=== PATIENT | female | born 1930 | race Two or more races ===

== ENCOUNTER 2017-11-13 16:04 | Inpatient (IN) | payer MEDICARE, MEDICAID ==
[~2017-11-13] VITALS: Ht 165.1 cm; Wt 49.1 kg
[~2017-11-13 16:04] MED LIST: ACYCLOVIR400 MG ORAL; ANIMAL SHAPES1 EAC4 PO; ARICEPT10 MG PO; COLACE100 MG PO; FERROUS SULFAT325 MG ORAL; MEGACE40 MG PO; MOM30 ML PO; NAMENDA10 MG PO; NITROGLYCERIN0.4 MG SL; SIMVASTATIN40 MG PO; TRAMADOL HCL50 MG ORAL; TRAMADOL HCL50 MG PO; TYLENOL 8 HOUR650 M1 PO; VITAMIN C500 M1 PO; ZINC PO; ZOSTRIX HP56.6 G1 TP
[2017-11-13] MEDS ORDERED: Ipratropium 0.02% Inh Soln 2.5ml UD HHN ONE (16:15)
[2017-11-13] MEDS ORDERED: Albuterol ud Inhalation HHN ONE (16:15)
[2017-11-13] MEDS ORDERED: NS 1000ml 1,600 ML IVLG ONE (16:45)
[2017-11-13] MEDS ORDERED: Vancomycin 1 GM in NS 275 ML IV ONE (16:45)
[2017-11-13] MEDS ORDERED: Acetaminophen 650 MG SUPP RECTAL ONE ×2 (16:45→16:49)
--- NOTE | 2017-11-13 16:47 | Emergency Room Report ---
History of Present Illness General Chief Complaint: Dyspnea/Respdistress Source: Medical Record Present Illness HPI 87yo F p/w cough and possible COPD exacerbation from SNF, was just at 2 outside hospitals for similar reasons in the past week Patient is nonverbal but has an apparent COPD and CAD history s/p CABG She was found to be febrile here but in no obvious distress. Allergies: Coded Allergies: No Known Allergies (Unverified , 09/24/12) Patient History Limited by: age, medical condition Past Medical History: see triage record, old chart reviewed Reviewed Nursing Documentation: PMH: Agreed; PSxH: Agreed Nursing Documentation-PMH Past Medical History: No History, Except For Hx Cardiac Problems: Yes - heart disease high cholesterol osteoarthritis Hx COPD: Yes Hx Cancer: No Hx Gastrointestinal Problems: No Hx Neurological Problems: Yes - dementia Hx Dementia: Yes Review of Systems All Other Systems: limited - demented, nonverbal Physical Exam Vital Signs Date Time Temp Pulse Resp B/P (MAP) Pulse Ox O2 Delivery O2 Flow Rate FiO2 11/13/17 16:05 99.1 104 20 134/70 94 Nasal Cannula 4.0 99.1 Sp02 EP Interpretation: reviewed, normal, abnormal - slightly hypoxic General Appearance: no apparent distress, alert, non-toxic Head: normocephalic Eyes: bilateral eye normal inspection, bilateral eye PERRL, bilateral eye EOMI ENT: normal ENT inspection, hearing grossly normal, normal pharynx, no angioedema, normal voice, moist mucus membranes Neck: normal inspection, full range of motion, supple, supple/symm/no masses Respiratory: chest non-tender, normal breath sounds, no accessory muscle use - slightly tachypnea, chest symmetrical, palpation of chest normal Cardiovascular #1: normal peripheral pulses, regular rate, rhythm, tachycardia Cardiovascular #2: 2+ radial (R), 2+ radial (L) Gastrointestinal: normal inspection, non tender, soft, no mass, no guarding, no rebound Rectal: deferred Genitourinary: normal inspection, no CVA tenderness Musculoskeletal: back normal, gait/station normal, normal range of motion, non- tender, no calf tenderness Neurologic: alert, responsive, contact center team lead III-XII nml as tested, motor strength/tone normal, sensory intact, speech normal Psychiatric: mood/affect normal - flat affect Skin: normal color, warm/dry Lymphatic: no adenopathy Medical Decision Making Diagnostic Impression: Primary Impression: Sepsis ER Course Patient found to have a fever, treated with the nebulizer treatment for suspected COPD, then treated with 30 mL per/kg fluids, blood cultures, lactic acid, broad-spectrum antibiotics EKG Diagnostic Results EKG Time: 16:32 EP Interpretation: LBBB, no sgarbossa criteria met Rate: tachycardiac Rhythm: NSR ST Segments: no acute changes ASA given to the pt in ED: No Rhythm Strip Diag. Results Rhythm Strip Time: 16:45 EP Interpretation: yes Rate: 105 Rhythm: NSR, no PVC's, no ectopy Chest X-Ray Diagnostic Results Chest X-Ray Diagnostic Results : Chest X-Ray Ordered: Yes # of Views/Limited/Complete: 1 View Indication: Other EP Interpretation: Yes PA Xray: Interpretation reviewed Interpretation: no acute cardiopulmonary disease, other - elevated R hemidiaphragm, possible consolidation of RML Impression: Other Electronically Signed by: Ortega Arias MD Reevaluation Time: 17:08 Last Vital Signs Date Time Temp Pulse Resp B/P (MAP) Pulse Ox O2 Delivery O2 Flow Rate FiO2 11/13/17 16:36 111 25 Nasal Cannula 4.0 11/13/17 16:05 99.1 134/70 94 99.1 Status: improved Reevaluation Impression repeat focused sepsis evaluation performed, exam reveals patient to be stable Disposition: ADMITTED INPATIENT Admit Decision Time: 17:14 Condition: Stable Signed Out To: Admitted to ORTEGA Stubbs M.D November 13, 2017 16:47
[2017-11-13] MEDS ORDERED: Zosyn 3.375gm inj ONE (16:49)
[2017-11-13 16:51] LABS: BASOPHILS % (AUTO) 0.2 % (0.0-2.0); HEMATOCRIT 43.8 % (37.0-47.0); HEMOGLOBIN 14.7 G/DL (12.0-16.0); LYMPHOCYTES % (AUTO) 8.4 % (20.0-45.0); MEAN CORPUSCULAR VOLUME 89 FL (80-99); MONOCYTES % (AUTO) 5.5 % (1.0-10.0); NEUTROPHILS % (AUTO) 85.9 % (45.0-75.0); PLATELET COUNT 116 K/UL (150-450); RED BLOOD COUNT 4.93 M/UL (4.20-5.40); RED CELL DISTRIBUTION WIDTH 12.1 % (11.6-14.8); WHITE BLOOD COUNT 15.1 K/UL (4.8-10.8)
[2017-11-13 17:04] LABS: ANION GAP 9 mmol/L (5-15); BLOOD UREA NITROGEN 14 mg/dL (7-18); CALCIUM 9.3 MG/DL (8.5-10.1); CARBON DIOXIDE 27 MMOL/L (21-32); CHLORIDE 104 MMOL/L (98-107); CREATININE 0.9 MG/DL (0.55-1.30); POTASSIUM 3.4 MMOL/L (3.5-5.1); SODIUM 140 MMOL/L (136-145)
[2017-11-13 17:21] LABS: ALANINE AMINOTRANSFERASE 9 U/L (12-78); ALBUMIN 2.9 G/DL (3.4-5.0); ALBUMIN/GLOBULIN RATIO 0.6 (1.0-2.7); ALKALINE PHOSPHATASE 86 U/L (46-116); ASPARTATE AMINO TRANSFERASE 23 U/L (15-37); BILIRUBIN,TOTAL 0.9 MG/DL (0.2-1.0)
[2017-11-13 17:29] LABS: APPEARANCE,URINE CLEAR; BILIRUBIN, URINE NEGATIVE (NEGATIVE); GLUCOSE, URINE (UA) NEGATIVE (NEGATIVE); KETONES,URINE 1+ (NEGATIVE); LEUKOCYTE ESTERASE ,URINE 1+ (NEGATIVE); NITRITE,URINE NEGATIVE (NEGATIVE); PH,URINE 6 (4.5-8.0); PROTEIN,URINE 3+ (NEGATIVE); UROBILINOGEN,URINE 4 MG/DL (0.0-1.0)
[2017-11-13 17:32] LABS: COLOR,URINE AMBER
--- NOTE | 2017-11-13 17:37 | Diagnostic Imaging Report ---
Indication: Shortness of breath Technique: XRAY Chest 1v Comparison: 09/24/2012 Findings: Patient again noted to be status post median sternotomy and CABG. There is been interval removal of some sternal wires. Heart size grossly stable. There is slight fullness of the upper mediastinum which may be related to postsurgical change however the possibility of mass or lymphadenopathy is not excluded. Recommend further evaluation with CT of the chest. There is patchy left basilar likely atelectasis. There is likely chronic abnormalities of the clavicles IMPRESSION: Fullness of the upper mediastinum. This may be related to the marked abnormalities of the manubrium and right clavicle seen on prior CT of the chest. This does however the more pronounced compared to the prior exam. The possibility of mass or other etiologies not entirely excluded. Recommend further evaluation with CT of the chest with contrast. Patchy likely left basilar atelectasis.
[2017-11-13 18:16] VITALS: BP 102/67
[2017-11-13] MEDS ORDERED: CEPHALEXIN500 MG ORAL (18:51)
[2017-11-13] MEDS ORDERED: Nitroglycerin Subl 0.4mg tab SL PRN (20:45)
[2017-11-13] MEDS ORDERED: Albuterol/Ipratropium 3ml neb HHN PRN (20:45)
[2017-11-13] MEDS ORDERED: LORazepam Inj 2mg/ml 1ml IV PRN (20:45)
[2017-11-13] MEDS ORDERED: Promethazine/Codeine 5ml UD ORAL PRN (20:45)
[2017-11-13] MEDS ORDERED: Ketorolac 30mg Inj IV PRN (20:45)
[2017-11-13] MEDS ORDERED: Theophylline ER 100mg ORAL SCH (21:30)
[2017-11-13] MEDS ORDERED: Heparin 5000 units/ml inj SUBQ SCH (21:45)
[2017-11-13] MEDS ORDERED: Piperacillin/Tazobactam 2.25 GM in D5W 55 ML IV SCH (22:00)
[2017-11-13] MEDS ORDERED: Piperacillin/Tazobactam 3.375 GM in D5W 55 ML IV SCH (22:00)
[2017-11-13] MEDS: Heparin 5000 units/ml inj SUBQ SCH (22:10)
[2017-11-13] MEDS: Theophylline ER 100mg ORAL SCH (22:20)
[2017-11-13] MEDS: Piperacillin/Tazobactam 3.375 GM in D5W 55 ML IVPB SCH (22:40)
[2017-11-14] VITALS: BP 106/54
[2017-11-14] MEDS: Solu-MEDROL 125mg Inj IV SCH ×5 (00:54→23:27)
[2017-11-14 04:00] VITALS: BP 130/56
[2017-11-14] MEDS: Piperacillin/Tazobactam 3.375 GM in D5W 55 ML IVPB SCH ×2 (06:10→14:01)
[2017-11-14 08:00] VITALS: BP 150/94
[2017-11-14] MEDS: Heparin 5000 units/ml inj SUBQ SCH ×2 (09:00→21:00)
[2017-11-14] MEDS: Donepezil 10mg tab ORAL SCH (09:25)
[2017-11-14] MEDS: Memantine 10mg tab ORAL SCH (09:25)
[2017-11-14] MEDS: Theophylline ER 100mg ORAL SCH ×2 (09:25→21:36)
[2017-11-14 12:00] VITALS: BP 119/62
--- NOTE | 2017-11-14 15:48 | Consultation ---
History of Present Illness General Date patient seen: November 14, 2017 Time patient seen: 15:42 Chief Complaint: Dyspnea/Respdistress Present Illness HPI 87 y/o F with hx of COPD, HLD, OA, Dementia, CAD s/p CABG presents to ED on 11/13 with respiratory distress and concern for COPD exacerbation. Of note recently admitted twice for COPD exacerbation. Febrile here to 101.9 and WBC 15. Allergies: Coded Allergies: No Known Allergies (Unverified , 09/24/12) Medication History Scheduled Acetaminophen (Tylenol 8 Hour), 650 MG PO DAILY, (Reported) Acyclovir* (Acyclovir*), 800 MG ORAL FIVE TIMES A DAY Ascorbic Acid* (Vitamin C*), 500 MG PO DAILY, (Reported) Cephalexin* (Keflex*), 500 MG ORAL EVERY 6 HOURS, (Reported) Docusate Sodium* (Colace*), 100 MG PO BID, (Reported) Donepezil Hcl* (Aricept*), 10 MG PO HS, (Reported) Ferrous Sulfate* (Ferrous Sulfate*), 325 MG ORAL DAILY, (Reported) Magnesium Hydroxide (Milk of Magnesia), 30 ML PO TID, (Reported) Megestrol Acetate (Megestrol Acetate), 400 MG PO DAILY, (Reported) Memantine Hcl* (Namenda*), 10 MG PO DAILY, (Reported) Multivitamin (Animal Shapes Vitamins), 1 EACH PO DAILY, (Reported) Nitroglycerin (Nitroglycerin), 0.4 MG SL needed, (Reported) Simvastatin (Zocor), 40 MG PO QHS, (Reported) Tramadol Hcl* (Ultram*), 50 MG PO Q6H, (Reported) Zinc Gluconate (Zinc), 220 MG PO DAILY, (Reported) Scheduled PRN Capsaicin (Zostrix Hp), 1 APPLIC TP BID PRN for For Pain Tramadol Hcl* (Ultram*), 50 MG ORAL Q6H PRN for For Pain Patient History Healthcare decision maker N Resuscitation status Full Code Advanced Directive on File No Patient History Narrative Pmhx: as above Shx: reviewed Fhx: non contributory Review of Systems ROS Narrative unable to obtain Physical Exam Physical Exam Narrative Sp02 EP Interpretation: reviewed, normal, abnormal - slightly hypoxic General Appearance: no apparent distress, alert, non-toxic Head: normocephalic Eyes: bilateral eye normal inspection, bilateral eye PERRL, bilateral eye EOMI ENT: normal ENT inspection, hearing grossly normal, normal pharynx, no angioedema, normal voice, moist mucus membranes Neck: normal inspection, full range of motion, supple, supple/symm/no masses Respiratory: chest non-tender, normal breath sounds, no accessory muscle use - slightly tachypnea, chest symmetrical, palpation of chest normal Cardiovascular #1: normal peripheral pulses, regular rate, rhythm, tachycardia Cardiovascular #2: 2+ radial (R), 2+ radial (L) Gastrointestinal: normal inspection, non tender, soft, no mass, no guarding, no rebound Rectal: deferred Genitourinary: normal inspection, no CVA tenderness Musculoskeletal: back normal, gait/station normal, normal range of motion, non- tender, no calf tenderness Neurologic: alert, responsive, composite engineer III-XII nml as tested, motor strength/tone normal, sensory intact, speech normal Psychiatric: mood/affect normal - flat affect Skin: normal color, warm/dry Lymphatic: no adenopathy Last 24 Hour Vital Signs Date Time Temp Pulse Resp B/P (MAP) Pulse Ox O2 Delivery O2 Flow Rate FiO2 11/14/17 12:00 70 11/14/17 12:00 98.1 74 16 119/62 94 Nasal Cannula 4.0 98.1 11/14/17 08:00 95 11/14/17 08:00 98.1 94 18 150/94 96 Nasal Cannula 4.0 98.1 11/14/17 04:20 87 11/14/17 04:00 97.7 86 20 130/56 95 Nasal Cannula 4.0 97.7 11/14/17 00:00 98.2 109 20 106/54 96 Nasal Cannula 4.0 98.2 11/13/17 23:40 101 11/13/17 19:14 99 11/13/17 18:50 99.5 105 19 103/101 95 Nasal Cannula 4.0 99.6 11/13/17 18:16 99.6 108 21 102/67 95 Nasal Cannula 4.0 99.6 11/13/17 17:20 99.9 11/13/17 16:50 101.9 11/13/17 16:36 111 25 Nasal Cannula 4.0 11/13/17 16:34 94 25 Nasal Cannula 4.0 11/13/17 16:34 94 25 96 Nasal Cannula 4.0 11/13/17 16:05 99.1 104 20 134/70 94 Nasal Cannula 4.0 99.1 Intake and Output 11/13/17 11/14/17 19:00 07:00 Intake Total 1655 ml Balance 1655 ml Intake Oral 0 ml IV Total 1655 ml Laboratory Tests Test 11/13/17 16:35 11/13/17 16:50 11/13/17 17:00 White Blood Count 15.1 K/UL (4.8-10.8) H Red Blood Count 4.93 M/UL (4.20-5.40) Hemoglobin 14.7 G/DL (12.0-16.0) Hematocrit 43.8 % (37.0-47.0) Mean Corpuscular Volume 89 FL (80-99) Mean Corpuscular Hemoglobin 29.9 PG (27.0-31.0) Mean Corpuscular Hemoglobin Concent 33.7 G/DL (32.0-36.0) Red Cell Distribution Width 12.1 % (11.6-14.8) Platelet Count 116 K/UL (150-450) L Mean Platelet Volume 7.4 FL (6.5-10.1) Neutrophils (%) (Auto) 85.9 % (45.0-75.0) H Lymphocytes (%) (Auto) 8.4 % (20.0-45.0) L Monocytes (%) (Auto) 5.5 % (1.0-10.0) Eosinophils (%) (Auto) 0.0 % (0.0-3.0) Basophils (%) (Auto) 0.2 % (0.0-2.0) Sodium Level 140 MMOL/L (136-145) Potassium Level 3.4 MMOL/L (3.5-5.1) L Chloride Level 104 MMOL/L (98-107) Carbon Dioxide Level 27 MMOL/L (21-32) Anion Gap 9 mmol/L (5-15) Blood Urea Nitrogen 14 mg/dL (7-18) Creatinine 0.9 MG/DL (0.55-1.30) Estimat Glomerular Filtration Rate mL/min (>60) Glucose Level 153 MG/DL (74-106) H Lactic Acid Level 1.80 mmol/L (0.66-2.22) Calcium Level 9.3 MG/DL (8.5-10.1) Total Bilirubin 0.9 MG/DL (0.2-1.0) Aspartate Amino Transf (AST/SGOT) 23 U/L (15-37) Alanine Aminotransferase (ALT/SGPT) 9 U/L (12-78) L Alkaline Phosphatase 86 U/L (46-116) Troponin I 0.006 ng/mL (0.000-0.056) Pro-B-Type Natriuretic Peptide 2615 pg/mL (0-125) H Total Protein 7.8 G/DL (6.4-8.2) Albumin 2.9 G/DL (3.4-5.0) L Globulin 4.9 g/dL Albumin/Globulin Ratio 0.6 (1.0-2.7) L Arterial Blood pH 7.460 (7.350-7.450) Arterial Blood Partial Pressure CO2 36.6 mmHg (35.0-45.0) Arterial Blood Partial Pressure O2 71.3 mmHg (75.0-100.0) L Arterial Blood HCO3 25.8 mmol/L (22.0-26.0) Arterial Blood Oxygen Saturation 94.8 % (92.0-98.0) Arterial Blood Base Excess 2.3 Rivera Test Positive Urine Color Stephanie Urine Appearance Clear Urine pH 6 (4.5-8.0) Urine Specific [place] 1.020 (1.005-1.035) Urine Protein 3+ (NEGATIVE) H Urine Glucose (UA) Negative (NEGATIVE) Urine Ketones 1+ (NEGATIVE) H Urine Occult Blood 5+ (NEGATIVE) H Urine Nitrite Negative (NEGATIVE) Urine Bilirubin Negative (NEGATIVE) Urine Ictotest Positive Urine Urobilinogen 4 MG/DL (0.0-1.0) H Urine Leukocyte Esterase 1+ (NEGATIVE) H Urine RBC 30-40 /HPF (0 - 2) H Urine WBC 2-4 /HPF (0 - 2) Urine Squamous Epithelial Cells Few /LPF (NONE/OCC) Urine Bacteria Few /HPF (NONE) Height (Feet): 5 Height (Inches): 2.00 Weight (Pounds): 114 Medications Current Medications Medications (Trade) Dose Ordered Sig/Sheila Route PRN Reason Start Time Stop Time Status Last Admin Dose Admin Albuterol/ Ipratropium (Albuterol/ Ipratropium) 3 ml EVERY 4 HOURS PRN HHN dyspnea 11/13/17 20:45 11/18/17 20:44 Dextrose (Dextrose 50%) STAT PRN IV Hypoglycemia 11/13/17 20:45 12/13/17 20:44 Dextrose (Dextrose 50%) STAT PRN IV Hypoglycemia 11/13/17 22:00 12/13/17 21:59 Donepezil HCl (Aricept) 10 mg DAILY ORAL 11/14/17 09:00 12/14/17 08:59 11/14/17 09:25 Heparin Sodium (Porcine) (Heparin 5000 units/ml) 5,000 units EVERY 12 HOURS SUBQ 11/13/17 22:10 12/13/17 22:09 Ketorolac Tromethamine (Toradol 30mg) 30 mg EVERY 8 HOURS PRN IV moderate pain 4-6 11/13/17 20:45 11/18/17 20:44 Lorazepam (Ativan 2mg/ml 1ml) 0.5 mg Q4H PRN IV For Anxiety 11/13/17 20:45 11/20/17 20:44 Memantine (Namenda) 10 mg DAILY ORAL 11/14/17 09:00 12/14/17 08:59 11/14/17 09:25 Methylprednisolone Sodium Succinate (Solu-MEDROL) 60 mg EVERY 6 HOURS IV 11/14/17 00:00 12/14/17 00:00 11/14/17 12:20 Nitroglycerin (Ntg) 0.4 mg Q5M X 3 DOSES PRN SL Prn Chest Pain 11/13/17 20:45 12/13/17 20:44 Ondansetron HCl (Zofran) 4 mg Q6H PRN IVP Nausea & Vomiting 11/13/17 20:45 12/13/17 20:44 Piperacillin Sod/ Tazobactam Sod 3.375 gm/Dextrose 55 ml @ 12.5 mls/hr Q8H IVPB 11/13/17 22:00 11/20/17 21:59 11/14/17 14:01 Promethazine HCl/ Codeine (Phenergan with Codeine) 5 ml EVERY 6 HOURS PRN ORAL cough 11/13/17 20:45 12/13/17 20:44 Temazepam (Restoril) 15 mg HSPRN PRN ORAL Insomnia 11/13/17 20:45 11/20/17 20:44 Theophylline (Justin-Dur) 100 mg EVERY 12 HOURS ORAL 11/13/17 22:10 12/13/17 22:09 11/14/17 09:25 Assessment/Plan Assessment/Plan Abx: IV Zosyn 11/13- IV Vancomycin x1 11/13 Assessment: COPD exacerbation- r/o Flu -u/a WBC 2-4 -CXR: Fullness of the upper mediastinum. This may be related to the marked abnormalities of the manubrium and right clavicle seen on prior CT of the chest. This does however the more pronounced compared to the prior exam. The possibility of mass or other etiologies not entirely excluded. Recommend further evaluation with CT of the chest with contrast. Patchy likely left basilar atelectasis. Fever/leukocytosis -u/a wbc 2/4, nit neg, leuk +1 -Bcx p COPD HLD OA Dementia CAD s/p CABG Plan: -Switch Zosyn #2 to PO Levaquin -Add empiric Tamilfu pending test -f/u cx -Monitor CBC/BMP, temperatures -aspiration precautions Thank you for this consultation. Will continue to follow along with you. Discussed with PAULINE. Trini Mendoza M.D. November 14, 2017 15:48
[2017-11-14 16:00] VITALS: BP 134/71
--- NOTE | 2017-11-14 18:13 | Cardiology Report ---
APPROVED REPORT EKG Measurement Heart [id number] Sinus tachycardia Left bundle branch block Abnormal ECG
[2017-11-14 20:00] VITALS: BP 141/61
[2017-11-14] MEDS: Augmentin 875mg Tab ORAL SCH (21:36)
[2017-11-15] VITALS: BP 117/65
--- NOTE | 2017-11-15 | History and Physical Report ---
DATE OF ADMISSION: 11/13/2017 TIME: 3 p.m. CONSULTANTS: 1. Colin Chapa M.D. 2. Warren Lentz M.D. 3. Miya Munguia M.D. CHIEF COMPLAINT: Shortness of breath, sepsis, weakness and lethargy. BRIEF HISTORY: The patient is an 87-year-old female from [facility] presented with above-mentioned diagnosis, admitted to telemetry for further care. Currently lethargic in bed, , not responding to questions. PAST MEDICAL HISTORY: Shortness of breath, weakness and encephalopathy. PAST SURGICAL HISTORY: G-tube. MEDICATIONS: Aricept, Namenda, Solu-Medrol, heparin, theophylline, Zosyn, albuterol, Ketoralac, lorazepam, Zofran and temazepam. ALLERGIES: Denies. SOCIAL HISTORY: Unable to obtain secondary to the patient's condition. REVIEW OF SYSTEMS: Unavailable. PHYSICAL EXAMINATION: GENERAL: Lethargic in bed, not responding to questions. VITAL SIGNS: Temperature is 98 degrees, pulse 84, respiratory rate 16, and blood pressure 119/62. CARDIOVASCULAR: No murmur. LUNGS: Poor air exchange. ABDOMEN: Bowel sounds distant. EXTREMITIES: No cyanosis, clubbing, or edema. NEUROLOGIC: The patient moves all extremities, slightly weak. LABORATORY AND DIAGNOSTIC DATA: White count 15, otherwise CBC is normal. BMP shows potassium 3.4, glucose 153, otherwise BMP is normal. BNP is 2615. Urinalysis, 1+ leukocyte esterase. ASSESSMENT: 1. UTI. 2. Sepsis. 3. Tachycardia. 4. Weakness. 5. Lethargy. 6. Altered mental status. 7. Diabetes. PLAN: 1. Continue previous medications. 2. OT/PT. 3. Dietary evaluation. 4. CBC and BMP in the morning. 5. Antibiotics per Infectious Disease. 6. Blood pressure and blood sugar control. 7. Dr. Chaap, Dr. Lentz and Dr. Munguia to consult. Chase Long D.O. DR: KRISTY JOB#: [id number] CC:
[2017-11-15 04:00] VITALS: BP 114/62
[2017-11-15] MEDS: Solu-MEDROL 125mg Inj IV SCH ×2 (05:25→12:31)
[2017-11-15 06:13] LABS: HEMATOCRIT 35.9 % (37.0-47.0); MEAN CORPUSCULAR VOLUME 90 FL (80-99); PLATELET COUNT 125 K/UL (150-450); RED BLOOD COUNT 4.01 M/UL (4.20-5.40); RED CELL DISTRIBUTION WIDTH 11.9 % (11.6-14.8); WHITE BLOOD COUNT 12.5 K/UL (4.8-10.8)
[2017-11-15 06:22] LABS: ANION GAP 9 mmol/L (5-15); BLOOD UREA NITROGEN 23 mg/dL (7-18); CALCIUM 9.1 MG/DL (8.5-10.1); CARBON DIOXIDE 27 MMOL/L (21-32); CHLORIDE 108 MMOL/L (98-107); CREATININE 0.9 MG/DL (0.55-1.30); POTASSIUM 2.8 MMOL/L (3.5-5.1); SODIUM 144 MMOL/L (136-145)
[2017-11-15 08:00] VITALS: BP 158/78
[2017-11-15] MEDS: Augmentin 875mg Tab ORAL SCH (08:25)
[2017-11-15] MEDS: Donepezil 10mg tab ORAL SCH (08:26)
[2017-11-15] MEDS: Memantine 10mg tab ORAL SCH (08:26)
[2017-11-15] MEDS: Heparin 5000 units/ml inj SUBQ SCH (08:28)
[2017-11-15] MEDS: Theophylline ER 100mg ORAL SCH (08:35)
--- NOTE | 2017-11-15 11:37 | Consultation ---
History of Present Illness General Date patient seen: November 14, 2017 Chief Complaint: Dyspnea/Respdistress Reason for Consultation: dyspnea Present Illness HPI 87 year old female with hx of dementia, COPD, s/p CABGnursing home resident, just recently discharged from another hospital brought in for evaluation of acute dyspnea and fever. Patient is nonverbal and entire history is taken from the chart. Allergies: Coded Allergies: No Known Allergies (Unverified , 09/24/12) Medication History Scheduled Acetaminophen (Tylenol 8 Hour), 650 MG PO DAILY, (Reported) Acyclovir* (Acyclovir*), 800 MG ORAL FIVE TIMES A DAY Ascorbic Acid* (Vitamin C*), 500 MG PO DAILY, (Reported) Cephalexin* (Keflex*), 500 MG ORAL EVERY 6 HOURS, (Reported) Docusate Sodium* (Colace*), 100 MG PO BID, (Reported) Donepezil Hcl* (Aricept*), 10 MG PO HS, (Reported) Ferrous Sulfate* (Ferrous Sulfate*), 325 MG ORAL DAILY, (Reported) Magnesium Hydroxide (Milk of Magnesia), 30 ML PO TID, (Reported) Megestrol Acetate (Megestrol Acetate), 400 MG PO DAILY, (Reported) Memantine Hcl* (Namenda*), 10 MG PO DAILY, (Reported) Multivitamin (Animal Shapes Vitamins), 1 EACH PO DAILY, (Reported) Nitroglycerin (Nitroglycerin), 0.4 MG SL needed, (Reported) Simvastatin (Zocor), 40 MG PO QHS, (Reported) Tramadol Hcl* (Ultram*), 50 MG PO Q6H, (Reported) Zinc Gluconate (Zinc), 220 MG PO DAILY, (Reported) Scheduled PRN Capsaicin (Zostrix Hp), 1 APPLIC TP BID PRN for For Pain Tramadol Hcl* (Ultram*), 50 MG ORAL Q6H PRN for For Pain Patient History Healthcare decision maker N Resuscitation status Full Code Advanced Directive on File No Past Medical/Surgical History Past Medical/Surgical History: (1) Dementia (2) CAD (coronary artery disease) Review of Systems All Other Systems: negative except mentioned in HPI Physical Exam General Appearance: cachetic Lines, tubes and drains: peripheral HEENT: normocephalic, atraumatic Neck: non-tender, normal alignment Respiratory/Chest: chest wall non-tender, lungs clear Breasts: no masses Cardiovascular/Chest: normal peripheral pulses Abdomen: normal bowel sounds, non tender Genitourinary/Rectal: normal genital exam Extremities: normal range of motion Skin Exam: normal pigmentation Neurologic: palletizer II-XII grossly normal Last 24 Hour Vital Signs Date Time Temp Pulse Resp B/P (MAP) Pulse Ox O2 Delivery O2 Flow Rate FiO2 11/15/17 07:23 Nasal Cannula 4.0 36 11/15/17 07:23 95 Nasal Cannula 4.0 36 11/15/17 07:23 108 18 Nasal Cannula 4.0 11/15/17 04:00 97.5 63 20 114/62 96 Nasal Cannula 3.0 97.5 11/15/17 04:00 63 11/15/17 00:00 89 11/15/17 00:00 98.5 92 19 117/65 96 Nasal Cannula 3.0 98.5 11/14/17 20:50 108 24 Nasal Cannula 4.0 11/14/17 20:30 Nasal Cannula 3.0 11/14/17 20:30 94 Nasal Cannula 3.0 11/14/17 20:00 98.2 97 22 141/61 94 Nasal Cannula 3.0 98.2 11/14/17 20:00 95 11/14/17 16:00 97.9 85 18 134/71 95 Nasal Cannula 4.0 97.9 11/14/17 16:00 86 11/14/17 12:00 70 11/14/17 12:00 98.1 74 16 119/62 94 Nasal Cannula 4.0 98.1 Laboratory Tests Test 11/15/17 05:30 White Blood Count 12.5 K/UL (4.8-10.8) H Red Blood Count 4.01 M/UL (4.20-5.40) L Hemoglobin 12.0 G/DL (12.0-16.0) Hematocrit 35.9 % (37.0-47.0) L Mean Corpuscular Volume 90 FL (80-99) Mean Corpuscular Hemoglobin 29.9 PG (27.0-31.0) Mean Corpuscular Hemoglobin Concent 33.3 G/DL (32.0-36.0) Red Cell Distribution Width 11.9 % (11.6-14.8) Platelet Count 125 K/UL (150-450) L Mean Platelet Volume 7.5 FL (6.5-10.1) Neutrophils (%) (Auto) % (45.0-75.0) Lymphocytes (%) (Auto) % (20.0-45.0) Monocytes (%) (Auto) % (1.0-10.0) Eosinophils (%) (Auto) % (0.0-3.0) Basophils (%) (Auto) % (0.0-2.0) Sodium Level 144 MMOL/L (136-145) Potassium Level 2.8 MMOL/L (3.5-5.1) L Chloride Level 108 MMOL/L (98-107) H Carbon Dioxide Level 27 MMOL/L (21-32) Anion Gap 9 mmol/L (5-15) Blood Urea Nitrogen 23 mg/dL (7-18) H Creatinine 0.9 MG/DL (0.55-1.30) Estimat Glomerular Filtration Rate mL/min (>60) Glucose Level 170 MG/DL (74-106) H Calcium Level 9.1 MG/DL (8.5-10.1) Microbiology Date/Time Source Procedure Growth Status 11/14/17 16:25 Sputum Induced Gram Stain Pending Resulted 11/14/17 16:25 Sputum Induced Sputum Culture - Preliminary Resulted 11/14/17 16:25 Nasopharynx Influenza Types A,B Antigen (JAMEY) - Final Complete Height (Feet): 5 Height (Inches): 2.00 Weight (Pounds): 114 Medications Current Medications Medications (Trade) Dose Ordered Sig/Sheila Route PRN Reason Start Time Stop Time Status Last Admin Dose Admin Albuterol/ Ipratropium (Albuterol/ Ipratropium) 3 ml EVERY 4 HOURS PRN HHN dyspnea 11/13/17 20:45 11/18/17 20:44 Amoxicillin/ Clavulanate Potassium (Augmentin) 875 mg EVERY 12 HOURS ORAL 11/14/17 21:00 11/21/17 20:59 11/15/17 08:25 Dextrose (Dextrose 50%) STAT PRN IV Hypoglycemia 11/13/17 20:45 12/13/17 20:44 Dextrose (Dextrose 50%) STAT PRN IV Hypoglycemia 11/13/17 22:00 12/13/17 21:59 Donepezil HCl (Aricept) 10 mg DAILY ORAL 11/14/17 09:00 12/14/17 08:59 11/15/17 08:26 Heparin Sodium (Porcine) (Heparin 5000 units/ml) 5,000 units EVERY 12 HOURS SUBQ 11/15/17 21:00 12/13/17 22:09 Ketorolac Tromethamine (Toradol 30mg) 30 mg EVERY 8 HOURS PRN IV moderate pain 4-6 11/13/17 20:45 11/18/17 20:44 Lorazepam (Ativan 2mg/ml 1ml) 0.5 mg Q4H PRN IV For Anxiety 11/13/17 20:45 11/20/17 20:44 Memantine (Namenda) 10 mg DAILY ORAL 11/14/17 09:00 12/14/17 08:59 11/15/17 08:26 Methylprednisolone Sodium Succinate (Solu-MEDROL) 60 mg EVERY 6 HOURS IV 11/14/17 00:00 12/14/17 00:00 11/15/17 05:25 Nitroglycerin (Ntg) 0.4 mg Q5M X 3 DOSES PRN SL Prn Chest Pain 11/13/17 20:45 12/13/17 20:44 Ondansetron HCl (Zofran) 4 mg Q6H PRN IVP Nausea & Vomiting 11/13/17 20:45 12/13/17 20:44 Potassium Chloride 40 meq/ Sodium Chloride 1,020 ml @ 50 mls/hr [id number] ONCE IV 11/15/17 12:00 11/16/17 08:23 Promethazine HCl/ Codeine (Phenergan with Codeine) 5 ml EVERY 6 HOURS PRN ORAL cough 11/13/17 20:45 12/13/17 20:44 Temazepam (Restoril) 15 mg HSPRN PRN ORAL Insomnia 11/13/17 20:45 11/20/17 20:44 Assessment/Plan Problem List: (1) Aspiration pneumonia ICD Codes: J69.0 - Pneumonitis due to inhalation of food and vomit SNOMED: 707961857 (2) Sepsis ICD Codes: A41.9 - Sepsis, unspecified organism SNOMED: 87011337 (3) Dementia ICD Codes: F03.90 - Unspecified dementia without behavioral disturbance SNOMED: 50005596 (4) CAD (coronary artery disease) ICD Codes: I25.10 - Atherosclerotic heart disease of [place] coronary artery without angina pectoris SNOMED: 91037069 Assessment/Plan respiratory treatment iv abx titrate fio2 to sat of 92% check cultures sputum induction swallow evaluation dvt prophylaxis check electrolytes Warren Lentz MD November 15, 2017 11:37
--- NOTE | 2017-11-15 11:50 | Pulmonology Progress Note ---
Assessment/Plan Problems: (1) Aspiration pneumonia (2) Sepsis (3) Dementia (4) CAD (coronary artery disease) Assessment/Plan respiratory treatment iv abx check cultures chest pt check electrolytes swallow evaluation pending Subjective ROS Limited/Unobtainable: No Constitutional: Reports: no symptoms HEENT: Repors: no symptoms Respiratory: Reports: no symptoms Allergies: Coded Allergies: No Known Allergies (Unverified , 09/24/12) Objective Last 24 Hour Vital Signs Date Time Temp Pulse Resp B/P (MAP) Pulse Ox O2 Delivery O2 Flow Rate FiO2 11/15/17 08:00 98.0 89 19 158/78 97 Nasal Cannula 3.0 98.0 11/15/17 08:00 77 11/15/17 07:23 Nasal Cannula 4.0 36 11/15/17 07:23 95 Nasal Cannula 4.0 36 11/15/17 07:23 108 18 Nasal Cannula 4.0 11/15/17 04:00 97.5 63 20 114/62 96 Nasal Cannula 3.0 97.5 11/15/17 04:00 63 11/15/17 00:00 89 11/15/17 00:00 98.5 92 19 117/65 96 Nasal Cannula 3.0 98.5 11/14/17 20:50 108 24 Nasal Cannula 4.0 11/14/17 20:30 Nasal Cannula 3.0 11/14/17 20:30 94 Nasal Cannula 3.0 11/14/17 20:00 98.2 97 22 141/61 94 Nasal Cannula 3.0 98.2 11/14/17 20:00 95 11/14/17 16:00 97.9 85 18 134/71 95 Nasal Cannula 4.0 97.9 11/14/17 16:00 86 11/14/17 12:00 70 11/14/17 12:00 98.1 74 16 119/62 94 Nasal Cannula 4.0 98.1 General Appearance: WD/WN HEENT: normocephalic, atraumatic Respiratory/Chest: chest wall non-tender, lungs clear Breasts: no masses Cardiovascular: normal peripheral pulses Abdomen: normal bowel sounds, soft, non tender Genitourinary: normal external genitalia Extremities: no cyanosis Skin: no rash Lymphatic: no neck adenopathy Microbiology Date/Time Source Procedure Growth Status 11/13/17 16:35 Blood Blood Culture - Preliminary NO GROWTH AFTER 24 HOURS Resulted 11/13/17 16:30 Blood Blood Culture - Preliminary NO GROWTH AFTER 24 HOURS Resulted 11/14/17 16:25 Sputum Induced Gram Stain Pending Resulted 11/14/17 16:25 Sputum Induced Sputum Culture - Preliminary Resulted 11/14/17 16:25 Nasopharynx Influenza Types A,B Antigen (JAMEY) - Final Complete 11/13/17 17:00 Nasal Nares MRSA Culture - Final NO METHICILLIN RESISTANT STAPH AUREUS... Complete 11/13/17 17:00 Rectum VRE Culture - Final Enterococcus Faecium - Vre Complete Laboratory Tests 11/15/17 05:30: White Blood Count 12.5H, Red Blood Count 4.01L, Hemoglobin 12.0, Hematocrit 35.9L, Mean Corpuscular Volume 90, Mean Corpuscular Hemoglobin 29.9, Mean Corpuscular Hemoglobin Concent 33.3, Red Cell Distribution Width 11.9, Platelet Count 125L, Mean Platelet Volume 7.5, Neutrophils (%) (Auto) , Lymphocytes (%) ( Auto) , Monocytes (%) (Auto) , Eosinophils (%) (Auto) , Basophils (%) (Auto) , Sodium Level 144, Potassium Level 2.8L, Chloride Level 108H, Carbon Dioxide Level 27, Anion Gap 9, Blood Urea Nitrogen 23H, Creatinine 0.9, Estimat Glomerular Filtration Rate , Glucose Level 170H, Calcium Level 9.1 Current Medications Medications (Trade) Dose Ordered Sig/Sheila Route PRN Reason Start Time Stop Time Status Last Admin Dose Admin Albuterol/ Ipratropium (Albuterol/ Ipratropium) 3 ml EVERY 4 HOURS PRN HHN dyspnea 11/13/17 20:45 11/18/17 20:44 Amoxicillin/ Clavulanate Potassium (Augmentin) 875 mg EVERY 12 HOURS ORAL 11/14/17 21:00 11/21/17 20:59 11/15/17 08:25 Dextrose (Dextrose 50%) STAT PRN IV Hypoglycemia 11/13/17 20:45 12/13/17 20:44 Dextrose (Dextrose 50%) STAT PRN IV Hypoglycemia 11/13/17 22:00 12/13/17 21:59 Donepezil HCl (Aricept) 10 mg DAILY ORAL 11/14/17 09:00 12/14/17 08:59 11/15/17 08:26 Heparin Sodium (Porcine) (Heparin 5000 units/ml) 5,000 units EVERY 12 HOURS SUBQ 11/15/17 21:00 12/13/17 22:09 Ketorolac Tromethamine (Toradol 30mg) 30 mg EVERY 8 HOURS PRN IV moderate pain 4-6 11/13/17 20:45 11/18/17 20:44 Lorazepam (Ativan 2mg/ml 1ml) 0.5 mg Q4H PRN IV For Anxiety 11/13/17 20:45 11/20/17 20:44 Memantine (Namenda) 10 mg DAILY ORAL 11/14/17 09:00 12/14/17 08:59 11/15/17 08:26 Methylprednisolone Sodium Succinate (Solu-MEDROL) 60 mg EVERY 6 HOURS IV 11/14/17 00:00 12/14/17 00:00 11/15/17 05:25 Nitroglycerin (Ntg) 0.4 mg Q5M X 3 DOSES PRN SL Prn Chest Pain 11/13/17 20:45 12/13/17 20:44 Ondansetron HCl (Zofran) 4 mg Q6H PRN IVP Nausea & Vomiting 11/13/17 20:45 12/13/17 20:44 Potassium Chloride 40 meq/ Sodium Chloride 1,020 ml @ 50 mls/hr [id number] ONCE IV 11/15/17 12:00 11/16/17 08:23 Promethazine HCl/ Codeine (Phenergan with Codeine) 5 ml EVERY 6 HOURS PRN ORAL cough 11/13/17 20:45 12/13/17 20:44 Temazepam (Restoril) 15 mg HSPRN PRN ORAL Insomnia 11/13/17 20:45 11/20/17 20:44 Warren Lentz MD November 15, 2017 11:50
[2017-11-15 12:00] VITALS: BP 120/62
[2017-11-15] MEDS ORDERED: Potassium Chloride 40 MEQ in 1/2 NS 1000ml 1,000 ML IV ONE ×2 (12:00→19:00)
--- NOTE | 2017-11-15 13:52 | General Progress Note ---
Assessment/Plan Problem List: (1) SOB (shortness of breath) ICD Codes: R06.02 - Shortness of breath SNOMED: 199357246 (2) UTI (urinary tract infection) ICD Codes: N39.0 - Urinary tract infection, site not specified SNOMED: 24827226 (3) Weak ICD Codes: R53.1 - Weakness SNOMED: 68171369 (4) Diabetes ICD Codes: E11.9 - Type 2 diabetes mellitus without complications SNOMED: 89904228 (5) Sepsis ICD Codes: A41.9 - Sepsis, unspecified organism SNOMED: 03352533 (6) Shortness of breath ICD Codes: R06.02 - Shortness of breath SNOMED: 206177882 (7) Dementia ICD Codes: F03.90 - Unspecified dementia without behavioral disturbance SNOMED: 57215039 Status: unchanged Assessment/Plan 02 pulm tx abx ot pt diet cbc bmp am Subjective Constitutional: Reports: weakness Allergies: Coded Allergies: No Known Allergies (Unverified , 09/24/12) All Systems: reviewed and negative except above Subjective o2nc sleepy Objective Last 24 Hour Vital Signs Date Time Temp Pulse Resp B/P (MAP) Pulse Ox O2 Delivery O2 Flow Rate FiO2 11/15/17 12:00 73 11/15/17 12:00 97.7 79 19 120/62 95 Nasal Cannula 3.0 97.7 11/15/17 08:00 98.0 89 19 158/78 97 Nasal Cannula 3.0 98.0 11/15/17 08:00 77 11/15/17 07:23 Nasal Cannula 4.0 36 11/15/17 07:23 95 Nasal Cannula 4.0 36 11/15/17 07:23 108 18 Nasal Cannula 4.0 11/15/17 04:00 97.5 63 20 114/62 96 Nasal Cannula 3.0 97.5 11/15/17 04:00 63 11/15/17 00:00 89 11/15/17 00:00 98.5 92 19 117/65 96 Nasal Cannula 3.0 98.5 11/14/17 20:50 108 24 Nasal Cannula 4.0 11/14/17 20:30 Nasal Cannula 3.0 11/14/17 20:30 94 Nasal Cannula 3.0 11/14/17 20:00 98.2 97 22 141/61 94 Nasal Cannula 3.0 98.2 11/14/17 20:00 95 11/14/17 16:00 97.9 85 18 134/71 95 Nasal Cannula 4.0 97.9 11/14/17 16:00 86 Laboratory Tests 11/15/17 05:30: White Blood Count 12.5H, Red Blood Count 4.01L, Hemoglobin 12.0, Hematocrit 35.9L, Mean Corpuscular Volume 90, Mean Corpuscular Hemoglobin 29.9, Mean Corpuscular Hemoglobin Concent 33.3, Red Cell Distribution Width 11.9, Platelet Count 125L, Mean Platelet Volume 7.5, Neutrophils (%) (Auto) , Lymphocytes (%) ( Auto) , Monocytes (%) (Auto) , Eosinophils (%) (Auto) , Basophils (%) (Auto) , Sodium Level 144, Potassium Level 2.8L, Chloride Level 108H, Carbon Dioxide Level 27, Anion Gap 9, Blood Urea Nitrogen 23H, Creatinine 0.9, Estimat Glomerular Filtration Rate , Glucose Level 170H, Calcium Level 9.1 Height (Feet): 5 Height (Inches): 2.00 Weight (Pounds): 114 General Appearance: lethargic EENT: normal ENT inspection Neck: normal alignment Cardiovascular: normal peripheral pulses, normal rate, regular rhythm Respiratory/Chest: chest wall non-tender, lungs clear, normal breath sounds Abdomen: normal bowel sounds, non tender, soft Extremities: normal inspection Edema: no edema noted Arm (L), no edema noted Arm (R), no edema noted Leg (L), no edema noted Leg (R), no edema noted Pedal (L), no edema noted Pedal (R), no edema noted Generalized Neurologic: motor weakness Skin: normal pigmentation, warm/dry Chase Long DO November 15, 2017 13:52
--- NOTE | 2017-11-15 15:30 | Consultation ---
DATE OF CONSULTATION: 11/15/2017 HISTORY OF PRESENT ILLNESS: This is an 87-year-old female patient. She has been admitted to the hospital at [facility] secondary to shortness of breath, sepsis, weakness, and lethargy. She is [facility], but she has confusion, disorganized thought process, shortness of breath, weakness, encephalopathy, cognition has declined below baseline that is why her attending physician has requested daily psychiatric consultation. MEDICAL HISTORY: Shortness of breath, weakness and encephalopathy. ALLERGIES: No known drug allergies. SOCIAL HISTORY: The patient lives in [facility]. Financially supported by [email or web address] and Medicare. SUBSTANCE ABUSE HISTORY: Denies drug and alcohol use. FAMILY PSYCHIATRIC HISTORY: Denies. STRENGTHS: She is motivated to get better and has a place to live. WEAKNESSES: She is impulsive and has no support system. PSYCHIATRIC HISTORY: Major depression with psychotic features, rule out pseudodementia. MENTAL STATUS EXAMINATION: An 87-year-old female patient. Appearance is disheveled. Attitude irritable and agitated. Affect guarded and restricted. Intellect poor. Mood depressed, anxious. Motor activity, psychomotor agitation. Attention span is poor. Orientation x2. Poverty of speech. Insight and judgment is poor. DIAGNOSES: 1. Major depression with psychotic features, rule out pseudodementia. 2. Psychosocial stressors, financial. MEDICAL HISTORY: Please see Internal Medicine note. PLAN: Plan for this patient is to treat this patient with a psychotropic medication regimen consisting of Namenda 10 mg daily to reduce depression and anxiety and Aricept 10 mg daily as well. Provided 20 minutes of supportive psychotherapy. Encouraged to interact appropriately with staff. Chart reviewed and discussed with staff. I would like to thank, Dr. Chase Long, for this interesting consultation. Miya Munguia M.D. DR: CHERYL JOB#: [id number] CC:
[2017-11-15 16:00] VITALS: BP 140/85
--- NOTE | 2017-11-15 17:00 | Infectious Diseases Prog Note ---
Assessment/Plan Assessment/Plan Assessment: COPD exacerbation- ?PNA, no obvious infiltrates on CXR -CXR: Fullness of the upper mediastinum. This may be related to the marked abnormalities of the manubrium and right clavicle seen on prior CT of the chest. This does however the more pronounced compared to the prior exam. The possibility of mass or other etiologies not entirely excluded. Recommend further evaluation with CT of the chest with contrast. Patchy likely left basilar atelectasis. -influenza sc neg -sp cx p Fever/leukocytosis, improving -u/a wbc 2/4, nit neg, leuk +1 -Bcx NTD COPD HLD OA Dementia CAD s/p CABG Plan: -Continue PO Augumentin #2 (abx d#/) for COPD exacerbation -Levaquin not done due to prolong QTc and concomitant QTc prolonging med -11/14 SP Zosyn 2 -11/13 SP IV Vanco x1 -f/u cx -Monitor CBC/BMP, temperatures -aspiration precautions Thank you for this consultation. Will continue to follow along with you. Discussed with RN. Subjective Allergies: Coded Allergies: No Known Allergies (Unverified , 09/24/12) Subjective afebrile in ~48hrs leukocytosis improving Bcx NTD sp cx p Objective Vital Signs Last 24 Hour Vital Signs Date Time Temp Pulse Resp B/P (MAP) Pulse Ox O2 Delivery O2 Flow Rate FiO2 11/15/17 16:00 97.7 85 20 140/85 94 Nasal Cannula 3.0 97.7 11/15/17 12:00 73 11/15/17 12:00 97.7 79 19 120/62 95 Nasal Cannula 3.0 97.7 11/15/17 08:00 98.0 89 19 158/78 97 Nasal Cannula 3.0 98.0 11/15/17 08:00 77 11/15/17 07:23 Nasal Cannula 4.0 36 11/15/17 07:23 95 Nasal Cannula 4.0 36 11/15/17 07:23 108 18 Nasal Cannula 4.0 11/15/17 04:00 97.5 63 20 114/62 96 Nasal Cannula 3.0 97.5 11/15/17 04:00 63 11/15/17 00:00 89 11/15/17 00:00 98.5 92 19 117/65 96 Nasal Cannula 3.0 98.5 11/14/17 20:50 108 24 Nasal Cannula 4.0 11/14/17 20:30 Nasal Cannula 3.0 11/14/17 20:30 94 Nasal Cannula 3.0 11/14/17 20:00 98.2 97 22 141/61 94 Nasal Cannula 3.0 98.2 11/14/17 20:00 95 Height (Feet): 5 Height (Inches): 2.00 Weight (Pounds): 114 Objective General Appearance: no apparent distress, alert, non-toxic Head: normocephalic Eyes: bilateral eye normal inspection, bilateral eye PERRL, bilateral eye EOMI ENT: moist mucus membranes Neck: supple Respiratory: chest non-tender, normal breath sounds, no accessory muscle use - slightly tachypnea, chest symmetrical, palpation of chest normal Cardiovascular regular rate, rhythm Gastrointestinal: normal inspection, non tender, soft, no mass, no guarding, no rebound Genitourinary: normal inspection, no CVA tenderness Musculoskeletal: non-tender, no calf tenderness Skin: normal color, warm/dry Microbiology Date/Time Source Procedure Growth Status 11/13/17 16:35 Blood Blood Culture - Preliminary NO GROWTH AFTER 24 HOURS Resulted 11/13/17 16:30 Blood Blood Culture - Preliminary NO GROWTH AFTER 24 HOURS Resulted 11/14/17 16:25 Sputum Induced Gram Stain - Final Resulted 11/14/17 16:25 Sputum Induced Sputum Culture - Preliminary Resulted 11/14/17 16:25 Nasopharynx Influenza Types A,B Antigen (JAMEY) - Final Complete 11/13/17 17:00 Nasal Nares MRSA Culture - Final NO METHICILLIN RESISTANT STAPH AUREUS... Complete 11/13/17 17:00 Rectum VRE Culture - Final Enterococcus Faecium - Vre Complete Laboratory Tests Test 11/15/17 05:30 White Blood Count 12.5 K/UL (4.8-10.8) H Red Blood Count 4.01 M/UL (4.20-5.40) L Hemoglobin 12.0 G/DL (12.0-16.0) Hematocrit 35.9 % (37.0-47.0) L Mean Corpuscular Volume 90 FL (80-99) Mean Corpuscular Hemoglobin 29.9 PG (27.0-31.0) Mean Corpuscular Hemoglobin Concent 33.3 G/DL (32.0-36.0) Red Cell Distribution Width 11.9 % (11.6-14.8) Platelet Count 125 K/UL (150-450) L Mean Platelet Volume 7.5 FL (6.5-10.1) Neutrophils (%) (Auto) % (45.0-75.0) Lymphocytes (%) (Auto) % (20.0-45.0) Monocytes (%) (Auto) % (1.0-10.0) Eosinophils (%) (Auto) % (0.0-3.0) Basophils (%) (Auto) % (0.0-2.0) Sodium Level 144 MMOL/L (136-145) Potassium Level 2.8 MMOL/L (3.5-5.1) L Chloride Level 108 MMOL/L (98-107) H Carbon Dioxide Level 27 MMOL/L (21-32) Anion Gap 9 mmol/L (5-15) Blood Urea Nitrogen 23 mg/dL (7-18) H Creatinine 0.9 MG/DL (0.55-1.30) Estimat Glomerular Filtration Rate mL/min (>60) Glucose Level 170 MG/DL (74-106) H Calcium Level 9.1 MG/DL (8.5-10.1) Current Medications Medications (Trade) Dose Ordered Sig/Sheila Route PRN Reason Start Time Stop Time Status Last Admin Dose Admin Albuterol/ Ipratropium (Albuterol/ Ipratropium) 3 ml EVERY 4 HOURS PRN HHN dyspnea 11/13/17 20:45 11/18/17 20:44 Amoxicillin/ Clavulanate Potassium (Augmentin) 875 mg EVERY 12 HOURS ORAL 11/14/17 21:00 11/21/17 20:59 11/15/17 08:25 Dextrose (Dextrose 50%) STAT PRN IV Hypoglycemia 11/13/17 20:45 12/13/17 20:44 Dextrose (Dextrose 50%) STAT PRN IV Hypoglycemia 11/13/17 22:00 12/13/17 21:59 Donepezil HCl (Aricept) 10 mg DAILY ORAL 11/14/17 09:00 12/14/17 08:59 11/15/17 08:26 Heparin Sodium (Porcine) (Heparin 5000 units/ml) 5,000 units EVERY 12 HOURS SUBQ 11/15/17 21:00 12/13/17 22:09 Ketorolac Tromethamine (Toradol 30mg) 30 mg EVERY 8 HOURS PRN IV moderate pain 4-6 11/13/17 20:45 11/18/17 20:44 Lorazepam (Ativan 2mg/ml 1ml) 0.5 mg Q4H PRN IV For Anxiety 11/13/17 20:45 11/20/17 20:44 Memantine (Namenda) 10 mg DAILY ORAL 11/14/17 09:00 12/14/17 08:59 11/15/17 08:26 Methylprednisolone Sodium Succinate (Solu-MEDROL) 60 mg EVERY 6 HOURS IV 11/14/17 00:00 12/14/17 00:00 11/15/17 12:31 Nitroglycerin (Ntg) 0.4 mg Q5M X 3 DOSES PRN SL Prn Chest Pain 11/13/17 20:45 12/13/17 20:44 Ondansetron HCl (Zofran) 4 mg Q6H PRN IVP Nausea & Vomiting 11/13/17 20:45 12/13/17 20:44 Potassium Chloride 40 meq/ Sodium Chloride 1,020 ml @ 50 mls/hr [id number] ONCE IV 11/15/17 12:00 11/16/17 08:23 11/15/17 12:31 Promethazine HCl/ Codeine (Phenergan with Codeine) 5 ml EVERY 6 HOURS PRN ORAL cough 11/13/17 20:45 12/13/17 20:44 Temazepam (Restoril) 15 mg HSPRN PRN ORAL Insomnia 11/13/17 20:45 11/20/17 20:44 Trini Mendoza M.D. November 15, 2017 17:00
[2017-11-15] MEDS ORDERED: Solu-MEDROL 125mg Inj IV SCH (18:00)
[2017-11-15] MEDS ORDERED: Nitroglycerin Subl 0.4mg tab SL PRN (19:00)
[2017-11-15 19:22] VITALS: BP 138/60
[2017-11-15] MEDS ORDERED: Ketorolac 30mg Inj IV PRN (20:00)
[2017-11-15] MEDS ORDERED: LORazepam Inj 2mg/ml 1ml IV PRN (20:45)
[2017-11-15] MEDS ORDERED: Heparin 5000 units/ml inj SUBQ SCH ×2 (21:00)
[2017-11-15] MEDS ORDERED: Albuterol/Ipratropium 3ml neb HHN PRN (21:00)
[2017-11-15] MEDS ORDERED: Augmentin 875mg Tab ORAL SCH (21:00)
[2017-11-16] VITALS: BP 128/62
[2017-11-16] MEDS ORDERED: Promethazine/Codeine 5ml UD ORAL PRN
[2017-11-16] MEDS: Solu-MEDROL 125mg Inj IV SCH ×6 (00:43→21:34)
[2017-11-16 04:05] VITALS: BP_SYST 124; BP_SYST 137; BP_DIAS 53; BP_DIAS 73
[2017-11-16 07:24] LABS: HEMATOCRIT 35.1 % (37.0-47.0); HEMOGLOBIN 12.1 G/DL (12.0-16.0); MEAN CORPUSCULAR VOLUME 89 FL (80-99); PLATELET COUNT 148 K/UL (150-450); RED BLOOD COUNT 3.93 M/UL (4.20-5.40); RED CELL DISTRIBUTION WIDTH 11.9 % (11.6-14.8)
[2017-11-16 07:42] LABS: ANION GAP 9 mmol/L (5-15); BLOOD UREA NITROGEN 28 mg/dL (7-18); CALCIUM 8.5 MG/DL (8.5-10.1); CARBON DIOXIDE 28 MMOL/L (21-32); CHLORIDE 110 MMOL/L (98-107); CREATININE 0.8 MG/DL (0.55-1.30); POTASSIUM 3.2 MMOL/L (3.5-5.1); SODIUM 146 MMOL/L (136-145)
[2017-11-16 08:00] VITALS: BP 145/68
--- NOTE | 2017-11-16 08:27 | General Progress Note ---
Assessment/Plan Problem List: (1) SOB (shortness of breath) ICD Codes: R06.02 - Shortness of breath SNOMED: 109865590 (2) UTI (urinary tract infection) ICD Codes: N39.0 - Urinary tract infection, site not specified SNOMED: 62573814 (3) Weak ICD Codes: R53.1 - Weakness SNOMED: 59231208 (4) Diabetes ICD Codes: E11.9 - Type 2 diabetes mellitus without complications SNOMED: 66525799 (5) Sepsis ICD Codes: A41.9 - Sepsis, unspecified organism SNOMED: 22068334 (6) Shortness of breath ICD Codes: R06.02 - Shortness of breath SNOMED: 504484871 (7) Dementia ICD Codes: F03.90 - Unspecified dementia without behavioral disturbance SNOMED: 58369882 Status: unchanged Assessment/Plan 02 pulm tx abx ot pt diet cbc bmp am dc plan Subjective Constitutional: Reports: weakness Allergies: Coded Allergies: No Known Allergies (Unverified , 09/24/12) All Systems: reviewed and negative except above Subjective o2nc sleepy Objective Last 24 Hour Vital Signs Date Time Temp Pulse Resp B/P (MAP) Pulse Ox O2 Delivery O2 Flow Rate FiO2 11/16/17 08:04 96 18 Nasal Cannula 3.0 32 11/16/17 08:04 Nasal Cannula 3.0 32 11/16/17 08:04 96 Nasal Cannula 3.0 32 11/16/17 04:05 97.9 78 20 124/53 94 Nasal Cannula 3.0 32 97.9 11/16/17 04:00 Nasal Cannula 11/16/17 00:00 98.2 74 20 128/62 96 Room Air 98.2 74 11/16/17 00:00 Nasal Cannula 3.0 11/15/17 23:28 Nasal Cannula 3.0 32 11/15/17 23:28 94 18 Nasal Cannula 3.0 32 11/15/17 23:28 96 Nasal Cannula 4.0 36 11/15/17 20:00 Nasal Cannula 3.0 11/15/17 19:22 98.6 84 20 138/60 92 Nasal Cannula 98.6 84 11/15/17 16:00 97.7 85 20 140/85 94 Nasal Cannula 3.0 97.7 11/15/17 12:00 73 11/15/17 12:00 97.7 79 19 120/62 95 Nasal Cannula 3.0 97.7 Intake and Output 11/15/17 11/16/17 19:00 07:00 Intake Total 50 ml 600 ml Output Total 460 ml Balance 50 ml 140 ml IV Total 50 ml 600 ml Output Urine Total 460 ml Laboratory Tests 11/16/17 05:20: White Blood Count 6.0#, Red Blood Count 3.93L, Hemoglobin 12.1, Hematocrit 35.1L , Mean Corpuscular Volume 89, Mean Corpuscular Hemoglobin 30.7, Mean Corpuscular Hemoglobin Concent 34.4, Red Cell Distribution Width 11.9, Platelet Count 148L, Mean Platelet Volume 7.3, Neutrophils (%) (Auto) , Lymphocytes (%) ( Auto) , Monocytes (%) (Auto) , Eosinophils (%) (Auto) , Basophils (%) (Auto) , Neutrophils % (Manual) [Pending], Lymphocytes % (Manual) [Pending], Platelet Estimate [Pending], Platelet Morphology [Pending], Sodium Level 146H, Potassium Level 3.2L, Chloride Level 110H, Carbon Dioxide Level 28, Anion Gap 9, Blood Urea Nitrogen 28H, Creatinine 0.8, Estimat Glomerular Filtration Rate , Glucose Level 161H, Calcium Level 8.5 Height (Feet): 5 Height (Inches): 2.00 Weight (Pounds): 114 General Appearance: lethargic EENT: normal ENT inspection Neck: normal alignment Cardiovascular: normal peripheral pulses, normal rate, regular rhythm Respiratory/Chest: chest wall non-tender, decreased breath sounds Abdomen: normal bowel sounds, non tender, soft Extremities: normal inspection Edema: no edema noted Arm (L), no edema noted Arm (R), no edema noted Leg (L), no edema noted Leg (R), no edema noted Pedal (L), no edema noted Pedal (R), no edema noted Generalized Neurologic: motor weakness Skin: normal pigmentation, warm/dry Chase Long DO November 16, 2017 08:27
[2017-11-16] MEDS ORDERED: Augmentin 875mg Tab ORAL SCH (09:00)
[2017-11-16] MEDS ORDERED: Memantine 10mg tab ORAL SCH ×2 (09:00)
[2017-11-16] MEDS ORDERED: Heparin 5000 units/ml inj SUBQ SCH (09:00)
[2017-11-16] MEDS ORDERED: Donepezil 10mg tab ORAL SCH ×2 (09:00)
[2017-11-16] MEDS ORDERED: Potassium Chloride 40 MEQ in Sodium Chloride 500ML 550 ML IVPB ONE (10:00)
[2017-11-16 12:00] VITALS: BP 128/58
--- NOTE | 2017-11-16 12:28 | Infectious Diseases Prog Note ---
Assessment/Plan Assessment/Plan Assessment: COPD exacerbation- ?PNA, no obvious infiltrates on CXR -CXR: Fullness of the upper mediastinum. This may be related to the marked abnormalities of the manubrium and right clavicle seen on prior CT of the chest. This does however the more pronounced compared to the prior exam. The possibility of mass or other etiologies not entirely excluded. Recommend further evaluation with CT of the chest with contrast. Patchy likely left basilar atelectasis. -influenza sc neg -sp cx p Fever, SP leukocytosis, sp -u/a wbc 2/4, nit neg, leuk +1 -Bcx NTD COPD HLD OA Dementia CAD s/p CABG Plan: -Continue PO Augumentin # 3 (abx d# 4 /5) for COPD exacerbation -Levaquin not done due to prolong QTc and concomitant QTc prolonging med -11/14 SP Zosyn 2 -11/13 SP IV Vanco x1 -f/u cx -Monitor CBC/BMP, temperatures -aspiration precautions Subjective Allergies: Coded Allergies: No Known Allergies (Unverified , 09/24/12) Subjective comfortable Objective Vital Signs Last 24 Hour Vital Signs Date Time Temp Pulse Resp B/P (MAP) Pulse Ox O2 Delivery O2 Flow Rate FiO2 11/16/17 12:00 97.7 69 20 128/58 93 97.7 11/16/17 08:04 96 18 Nasal Cannula 3.0 32 11/16/17 08:04 Nasal Cannula 3.0 32 11/16/17 08:04 96 Nasal Cannula 3.0 32 11/16/17 08:00 97.3 73 20 145/68 94 97.3 11/16/17 04:05 97.9 78 20 124/53 94 Nasal Cannula 3.0 32 97.9 11/16/17 04:00 Nasal Cannula 11/16/17 00:00 98.2 74 20 128/62 96 Room Air 98.2 74 11/16/17 00:00 Nasal Cannula 3.0 11/15/17 23:28 Nasal Cannula 3.0 32 11/15/17 23:28 94 18 Nasal Cannula 3.0 32 11/15/17 23:28 96 Nasal Cannula 4.0 36 11/15/17 20:00 Nasal Cannula 3.0 11/15/17 19:22 98.6 84 20 138/60 92 Nasal Cannula 98.6 84 11/15/17 16:00 97.7 85 20 140/85 94 Nasal Cannula 3.0 97.7 Height (Feet): 5 Height (Inches): 2.00 Weight (Pounds): 114 HEENT: anicteric Respiratory/Chest: no respiratory distress Cardiovascular: regular rhythm Abdomen: soft, non tender Microbiology Date/Time Source Procedure Growth Status 11/13/17 16:35 Blood Blood Culture - Preliminary NO GROWTH AFTER 48 HOURS Resulted 11/13/17 16:30 Blood Blood Culture - Preliminary NO GROWTH AFTER 48 HOURS Resulted 11/14/17 16:25 Sputum Induced Gram Stain - Final Resulted 11/14/17 16:25 Sputum Induced Sputum Culture - Preliminary Resulted 11/14/17 16:25 Nasopharynx Influenza Types A,B Antigen (JAMEY) - Final Complete 11/13/17 17:00 Nasal Nares MRSA Culture - Final NO METHICILLIN RESISTANT STAPH AUREUS... Complete 11/13/17 17:00 Rectum VRE Culture - Final Enterococcus Faecium - Vre Complete Laboratory Tests Test 11/16/17 05:20 White Blood Count 6.0 K/UL (4.8-10.8) # Red Blood Count 3.93 M/UL (4.20-5.40) L Hemoglobin 12.1 G/DL (12.0-16.0) Hematocrit 35.1 % (37.0-47.0) L Mean Corpuscular Volume 89 FL (80-99) Mean Corpuscular Hemoglobin 30.7 PG (27.0-31.0) Mean Corpuscular Hemoglobin Concent 34.4 G/DL (32.0-36.0) Red Cell Distribution Width 11.9 % (11.6-14.8) Platelet Count 148 K/UL (150-450) L Mean Platelet Volume 7.3 FL (6.5-10.1) Neutrophils (%) (Auto) % (45.0-75.0) Lymphocytes (%) (Auto) % (20.0-45.0) Monocytes (%) (Auto) % (1.0-10.0) Eosinophils (%) (Auto) % (0.0-3.0) Basophils (%) (Auto) % (0.0-2.0) Differential Total Cells Counted 100 Neutrophils % (Manual) 84 % (45-75) H Lymphocytes % (Manual) 14 % (20-45) L Monocytes % (Manual) 2 % (1-10) Eosinophils % (Manual) 0 % (0-3) Basophils % (Manual) 0 % (0-2) Band Neutrophils 0 % (0-8) Platelet Estimate Decreased L Platelet Morphology Normal Anisocytosis 1+ Sodium Level 146 MMOL/L (136-145) H Potassium Level 3.2 MMOL/L (3.5-5.1) L Chloride Level 110 MMOL/L (98-107) H Carbon Dioxide Level 28 MMOL/L (21-32) Anion Gap 9 mmol/L (5-15) Blood Urea Nitrogen 28 mg/dL (7-18) H Creatinine 0.8 MG/DL (0.55-1.30) Estimat Glomerular Filtration Rate mL/min (>60) Glucose Level 161 MG/DL (74-106) H Calcium Level 8.5 MG/DL (8.5-10.1) Current Medications Medications (Trade) Dose Ordered Sig/Sheila Route PRN Reason Start Time Stop Time Status Last Admin Dose Admin Albuterol/ Ipratropium (Albuterol/ Ipratropium) 3 ml Q4H PRN HHN dyspnea 11/15/17 21:00 11/20/17 20:59 Amoxicillin/ Clavulanate Potassium (Augmentin) 875 mg EVERY 12 HOURS ORAL 11/16/17 09:00 11/21/17 20:59 11/16/17 08:29 Dextrose (Dextrose 50%) STAT PRN IV Hypoglycemia 11/15/17 20:00 12/13/17 19:59 Dextrose (Dextrose 50%) STAT PRN IV Hypoglycemia 11/15/17 20:45 12/13/17 20:44 Donepezil HCl (Aricept) 10 mg DAILY ORAL 11/16/17 09:00 12/16/17 08:59 11/16/17 08:29 Heparin Sodium (Porcine) (Heparin 5000 units/ml) 5,000 units EVERY 12 HOURS SUBQ 11/16/17 09:00 12/16/17 08:59 11/16/17 08:30 Ketorolac Tromethamine (Toradol 30mg) 30 mg Q8H PRN IV moderate pain 4-6 11/15/17 20:00 11/20/17 19:59 Lorazepam (Ativan 2mg/ml 1ml) 0.5 mg Q4H PRN IV For Anxiety 11/15/17 20:45 11/20/17 20:44 Memantine (Namenda) 10 mg DAILY ORAL 11/16/17 09:00 12/16/17 08:59 11/16/17 08:29 Methylprednisolone Sodium Succinate (Solu-MEDROL) 60 mg Q6H IV 11/16/17 08:15 12/16/17 08:14 11/16/17 08:28 Nitroglycerin (Ntg) 0.4 mg Q5M X 3 DOSES PRN SL Prn Chest Pain 11/15/17 19:00 12/13/17 20:44 Ondansetron HCl (Zofran) 4 mg Q6H PRN IVP Nausea & Vomiting 11/15/17 20:45 12/13/17 20:44 Potassium Chloride 40 meq/ Sodium Chloride 570 ml @ 142.5 mls/ hr ONCE ONCE IVPB 11/16/17 10:00 11/16/17 13:59 11/16/17 11:56 Promethazine HCl/ Codeine (Phenergan with Codeine) 5 ml Q6H PRN ORAL cough 11/16/17 00:00 12/16/17 00:00 Sodium Chloride 1,000 ml @ 50 mls/hr Q20H IV 11/15/17 21:00 12/15/17 20:59 Temazepam (Restoril) 15 mg HSPRN PRN ORAL Insomnia 11/15/17 20:45 11/20/17 20:44 Colin Chapa MD November 16, 2017 12:28
[2017-11-16 16:00] VITALS: BP 148/55
--- NOTE | 2017-11-16 17:45 | Progress Note ---
DATE: 11/16/2017 HISTORY OF PRESENT ILLNESS: This is a patient that is 87 years old with history of sepsis presenting with an altered mental status and confusion. That is why, her attending has requested daily psychiatric consultation. MENTAL STATUS EXAMINATION: This is an 87-year-old female. Appearance is disheveled. Attitude irritable and agitated. Affect guarded and restricted. Intellect poor. Mood depressed and anxious. Motor activity, psychomotor agitation. Attention span is poor. Orientation x2. Speech is pressured. Thought process, disorganized and illogical. Thought content, auditory hallucinations and paranoid delusions. Insight and judgment is poor. DIAGNOSIS: Major depression with psychotic features. PLAN: Treat her with Aricept 10 mg daily and Namenda 10 mg daily. 18 to 20 minutes of supportive psychotherapy provided. Chart reviewed. Discussed with staff. The patient is seen and assessed at bedside. Miya Munguia M.D. DR: CHERYL JOB#: [id number] CC:
[2017-11-16 20:00] VITALS: BP 152/76
[2017-11-16] MEDS: Heparin 5000 units/ml inj SUBQ SCH (21:34)
[2017-11-16] MEDS: Augmentin 875mg Tab ORAL SCH (21:35)
--- NOTE | 2017-11-16 21:45 | Consultation ---
DATE OF CONSULTATION: 11/15/2017 PSYCHOTHERAPY CONSULTATION PROGRESS NOTE TREATING ATTENDING PHYSICIAN: Chase Long D.O. HISTORY OF PRESENT ILLNESS: The patient is an 87-year-old female patient, brought into the hospital for sepsis. This patient has been very weak and lethargic and tired and has been confused. For these reasons, she is referred for psychotherapeutic services. The patient is from the long term [facility]. This clinician assessed the patient. The patient is very confused and disorganized in her thought process. She is unable to care for her basic needs. She has no logical plan for self care. There is no indication of auditory or visual hallucinations or suicidal or homicidal thoughts of ideation. However, the patient has been very confused. She has thoughts of irritability as well. However, she has been very tired, weak and lethargic. PAST MEDICAL HISTORY: Includes history of encephalopathy, shortness of breath, and weakness. ALLERGIES: The patient has no known drug allergies. SUBSTANCE ABUSE HISTORY: There is no indication of alcohol use, illicit substance use, and smoking cigarettes. PSYCHIATRIC HISTORY: The patient has a history of depression. SOCIAL HISTORY: The patient is . She is 87 years old, female patient. Financially sustained through [employer]. MENTAL STATUS EXAMINATION: The patient is alert and oriented to person and place. Mood is dysphoric. Affect blunted. Thought process disorganized. PLAN: The clinician assessed this patient. Assessed this patient's mental status. Provided the patient with reality orientation and provided the patient with supportive psychotherapy. Encouraging the patient to participate in treatment milieu. Continue behavioral management. This clinician has reviewed the patient's chart. Discussed the treatment with treatment team. Lucila Posadas PsyD. DR: Boaz JOB#: [id number] CC:
--- NOTE | 2017-11-16 22:11 | Pulmonology Progress Note ---
Assessment/Plan Problems: (1) Aspiration pneumonia (2) Sepsis (3) Dementia (4) CAD (coronary artery disease) Assessment/Plan improving respiratory treatment iv abx check cultures chest pt check electrolytes swallow evaluation Subjective ROS Limited/Unobtainable: No Allergies: Coded Allergies: No Known Allergies (Unverified , 09/24/12) Objective Last 24 Hour Vital Signs Date Time Temp Pulse Resp B/P (MAP) Pulse Ox O2 Delivery O2 Flow Rate FiO2 11/16/17 20:10 95 Nasal Cannula 3.0 32 11/16/17 20:10 Nasal Cannula 3.0 32 11/16/17 20:09 61 18 Nasal Cannula 3.0 32 11/16/17 20:00 98.2 75 20 152/76 92 98.2 11/16/17 16:00 Nasal Cannula 3.0 11/16/17 16:00 97.7 83 20 148/55 94 97.7 11/16/17 12:00 Nasal Cannula 3.0 11/16/17 12:00 97.7 69 20 128/58 93 97.7 11/16/17 08:04 96 18 Nasal Cannula 3.0 32 11/16/17 08:04 Nasal Cannula 3.0 32 11/16/17 08:04 96 Nasal Cannula 3.0 32 11/16/17 08:00 97.3 73 20 145/68 94 97.3 11/16/17 08:00 Nasal Cannula 3.0 11/16/17 04:05 97.9 78 20 124/53 94 Nasal Cannula 3.0 32 97.9 11/16/17 04:00 Nasal Cannula 11/16/17 00:00 98.2 74 20 128/62 96 Room Air 98.2 74 11/16/17 00:00 Nasal Cannula 3.0 11/15/17 23:28 Nasal Cannula 3.0 32 11/15/17 23:28 94 18 Nasal Cannula 3.0 32 11/15/17 23:28 96 Nasal Cannula 4.0 36 Intake and Output 11/15/17 11/16/17 19:00 07:00 Intake Total 50 ml 600 ml Output Total 460 ml Balance 50 ml 140 ml IV Total 50 ml 600 ml Output Urine Total 460 ml Objective General Appearance: WD/WN HEENT: normocephalic Respiratory/Chest: chest wall non-tender, lungs clear Cardiovascular: normal peripheral pulses, normal rate Abdomen: normal bowel sounds, soft, non tender Genitourinary: normal external genitalia Extremities: no clubbing Neurologic/Psychiatric: md pediatric allergist II-XII grossly normal Microbiology Date/Time Source Procedure Growth Status 11/14/17 16:25 Sputum Induced Gram Stain - Final Resulted 11/14/17 16:25 Sputum Induced Sputum Culture - Preliminary Resulted 11/14/17 16:25 Nasopharynx Influenza Types A,B Antigen (JAMEY) - Final Complete Laboratory Tests 11/16/17 05:20: White Blood Count 6.0#, Red Blood Count 3.93L, Hemoglobin 12.1, Hematocrit 35.1L , Mean Corpuscular Volume 89, Mean Corpuscular Hemoglobin 30.7, Mean Corpuscular Hemoglobin Concent 34.4, Red Cell Distribution Width 11.9, Platelet Count 148L, Mean Platelet Volume 7.3, Neutrophils (%) (Auto) , Lymphocytes (%) ( Auto) , Monocytes (%) (Auto) , Eosinophils (%) (Auto) , Basophils (%) (Auto) , Differential Total Cells Counted 100, Neutrophils % (Manual) 84H, Lymphocytes % (Manual) 14L, Monocytes % (Manual) 2, Eosinophils % (Manual) 0, Basophils % ( Manual) 0, Band Neutrophils 0, Platelet Estimate DecreasedL, Platelet Morphology Normal, Anisocytosis 1+, Sodium Level 146H, Potassium Level 3.2L, Chloride Level 110H, Carbon Dioxide Level 28, Anion Gap 9, Blood Urea Nitrogen 28H, Creatinine 0.8, Estimat Glomerular Filtration Rate , Glucose Level 161H, Calcium Level 8.5 Current Medications Medications (Trade) Dose Ordered Sig/Sheila Route PRN Reason Start Time Stop Time Status Last Admin Dose Admin Albuterol/ Ipratropium (Albuterol/ Ipratropium) 3 ml Q4H PRN HHN dyspnea 11/15/17 21:00 11/20/17 20:59 Amoxicillin/ Clavulanate Potassium (Augmentin) 875 mg EVERY 12 HOURS ORAL 11/16/17 21:00 11/21/17 22:00 11/16/17 21:35 Dextrose (Dextrose 50%) STAT PRN IV Hypoglycemia 11/15/17 20:00 12/13/17 19:59 Dextrose (Dextrose 50%) STAT PRN IV Hypoglycemia 11/15/17 20:45 12/13/17 20:44 Donepezil HCl (Aricept) 10 mg DAILY ORAL 11/17/17 09:00 12/16/17 08:59 Heparin Sodium (Porcine) (Heparin 5000 units/ml) 5,000 units EVERY 12 HOURS SUBQ 11/16/17 21:21 12/16/17 21:20 11/16/17 21:34 Ketorolac Tromethamine (Toradol 30mg) 30 mg Q8H PRN IV moderate pain 4-6 11/15/17 20:00 11/20/17 19:59 Lorazepam (Ativan 2mg/ml 1ml) 0.5 mg Q4H PRN IV For Anxiety 11/15/17 20:45 11/20/17 20:44 Memantine (Namenda) 10 mg DAILY ORAL 11/17/17 09:00 12/16/17 08:59 Methylprednisolone Sodium Succinate (Solu-MEDROL) 60 mg Q6H IV 11/16/17 14:30 12/16/17 14:29 11/16/17 21:34 Nitroglycerin (Ntg) 0.4 mg Q5M X 3 DOSES PRN SL Prn Chest Pain 11/15/17 19:00 12/13/17 20:44 Ondansetron HCl (Zofran) 4 mg Q6H PRN IVP Nausea & Vomiting 11/15/17 20:45 12/13/17 20:44 Promethazine HCl/ Codeine (Phenergan with Codeine) 5 ml Q6H PRN ORAL cough 11/16/17 00:00 12/16/17 00:00 Sodium Chloride 1,000 ml @ 50 mls/hr Q20H IV 11/15/17 21:00 12/15/17 20:59 11/16/17 17:29 Temazepam (Restoril) 15 mg HSPRN PRN ORAL Insomnia 11/15/17 20:45 11/20/17 20:44 Warren Lentz MD November 16, 2017 22:11
[2017-11-17] VITALS: BP_SYST 131; BP_SYST 139; BP_DIAS 107; BP_DIAS 69
[2017-11-17] MEDS: Solu-MEDROL 125mg Inj IV SCH ×4 (02:48→21:57)
[2017-11-17 04:00] VITALS: BP 123/70
[2017-11-17 08:00] VITALS: BP 146/66
[2017-11-17 08:02] LABS: BASOPHILS % (AUTO) 0.4 % (0.0-2.0); HEMATOCRIT 35.8 % (37.0-47.0); HEMOGLOBIN 12.1 G/DL (12.0-16.0); LYMPHOCYTES % (AUTO) 16.3 % (20.0-45.0); MEAN CORPUSCULAR VOLUME 90 FL (80-99); MONOCYTES % (AUTO) 4.3 % (1.0-10.0); NEUTROPHILS % (AUTO) 79.1 % (45.0-75.0); PLATELET COUNT 168 K/UL (150-450); RED BLOOD COUNT 3.99 M/UL (4.20-5.40); RED CELL DISTRIBUTION WIDTH 11.9 % (11.6-14.8); WHITE BLOOD COUNT 3.7 K/UL (4.8-10.8)
[2017-11-17 08:27] LABS: ANION GAP 10 mmol/L (5-15); BLOOD UREA NITROGEN 25 mg/dL (7-18); CALCIUM 8.3 MG/DL (8.5-10.1); CARBON DIOXIDE 26 MMOL/L (21-32); CHLORIDE 107 MMOL/L (98-107); CREATININE 0.7 MG/DL (0.55-1.30); POTASSIUM 3.6 MMOL/L (3.5-5.1); SODIUM 143 MMOL/L (136-145)
--- NOTE | 2017-11-17 08:42 | General Progress Note ---
Assessment/Plan Problem List: (1) SOB (shortness of breath) ICD Codes: R06.02 - Shortness of breath SNOMED: 571793309 (2) UTI (urinary tract infection) ICD Codes: N39.0 - Urinary tract infection, site not specified SNOMED: 92696710 (3) Weak ICD Codes: R53.1 - Weakness SNOMED: 49804545 (4) Diabetes ICD Codes: E11.9 - Type 2 diabetes mellitus without complications SNOMED: 42174775 (5) Sepsis ICD Codes: A41.9 - Sepsis, unspecified organism SNOMED: 59697152 (6) Shortness of breath ICD Codes: R06.02 - Shortness of breath SNOMED: 482176364 (7) Dementia ICD Codes: F03.90 - Unspecified dementia without behavioral disturbance SNOMED: 48227200 Status: unchanged Assessment/Plan 02 pulm tx abx ot pt diet cbc bmp am dc plan Subjective Constitutional: Reports: weakness Allergies: Coded Allergies: No Known Allergies (Unverified , 09/24/12) All Systems: reviewed and negative except above Subjective o2nc sleepy Objective Last 24 Hour Vital Signs Date Time Temp Pulse Resp B/P (MAP) Pulse Ox O2 Delivery O2 Flow Rate FiO2 11/17/17 08:00 97.3 65 20 146/66 95 97.3 11/17/17 07:41 59 18 Nasal Cannula 3.0 32 11/17/17 07:41 Nasal Cannula 3.0 32 11/17/17 07:41 96 Nasal Cannula 3.0 32 11/17/17 04:00 97.5 68 20 123/70 94 97.5 11/17/17 04:00 93 Nasal Cannula 2.0 11/17/17 00:00 97.9 66 18 131/69 93 97.9 11/17/17 00:00 Nasal Cannula 3.0 11/16/17 20:10 95 Nasal Cannula 3.0 32 11/16/17 20:10 Nasal Cannula 3.0 32 11/16/17 20:09 61 18 Nasal Cannula 3.0 32 11/16/17 20:00 Nasal Cannula 3.0 11/16/17 20:00 98.2 75 20 152/76 92 98.2 11/16/17 16:00 Nasal Cannula 3.0 11/16/17 16:00 97.7 83 20 148/55 94 97.7 11/16/17 12:00 Nasal Cannula 3.0 11/16/17 12:00 97.7 69 20 128/58 93 97.7 Intake and Output 11/16/17 11/17/17 19:00 07:00 Intake Total 820.0 ml 600 ml Output Total 300 ml 850 ml Balance 520.0 ml -250 ml IV Total 820.0 ml 600 ml Output Urine Total 300 ml 850 ml Laboratory Tests 11/17/17 04:50: White Blood Count 3.7L, Red Blood Count 3.99L, Hemoglobin 12.1, Hematocrit 35.8L , Mean Corpuscular Volume 90, Mean Corpuscular Hemoglobin 30.2, Mean Corpuscular Hemoglobin Concent 33.8, Red Cell Distribution Width 11.9, Platelet Count 168, Mean Platelet Volume 7.4, Neutrophils (%) (Auto) 79.1H, Lymphocytes ( %) (Auto) 16.3L, Monocytes (%) (Auto) 4.3, Eosinophils (%) (Auto) 0.0, Basophils (%) (Auto) 0.4, Sodium Level 143, Potassium Level 3.6, Chloride Level 107, Carbon Dioxide Level 26, Anion Gap 10, Blood Urea Nitrogen 25H, Creatinine 0.7, Estimat Glomerular Filtration Rate , Glucose Level 158H, Calcium Level 8.3L Height (Feet): 5 Height (Inches): 2.00 Weight (Pounds): 114 General Appearance: lethargic EENT: normal ENT inspection Neck: normal alignment Cardiovascular: normal peripheral pulses, normal rate, regular rhythm Respiratory/Chest: chest wall non-tender, decreased breath sounds Abdomen: normal bowel sounds, non tender, soft Extremities: normal inspection Edema: no edema noted Arm (L), no edema noted Arm (R), no edema noted Leg (L), no edema noted Leg (R), no edema noted Pedal (L), no edema noted Pedal (R), no edema noted Generalized Neurologic: motor weakness Skin: normal pigmentation, warm/dry Chase Long DO November 17, 2017 08:42
[2017-11-17] MEDS: Memantine 10mg tab ORAL SCH (08:43)
[2017-11-17] MEDS: Augmentin 875mg Tab ORAL SCH ×2 (08:43→20:29)
[2017-11-17] MEDS: Donepezil 10mg tab ORAL SCH (08:43)
[2017-11-17] MEDS: Heparin 5000 units/ml inj SUBQ SCH ×2 (08:44→20:30)
[2017-11-17 12:00] VITALS: BP 131/59
[2017-11-17 15:46] VITALS: BP 145/62
[2017-11-17 20:00] VITALS: BP 154/62
--- NOTE | 2017-11-17 20:15 | Progress Note ---
DATE: 11/17/2017 NOTE: "POOR AUDIO QUALITY" SUBJECTIVE: The patient is an 87-year-old female patient she is confused and disorganized. Mood labile. She has no logical plan for own self-care. She has got irritability, agitation, and . MENTAL STATUS EXAMINATION: The patient is an 87-year-old female. Appearance is disheveled. Attitude, irritable and agitated. Affect, guarded and restricted. Intellect poor. Mood depressed and anxious. Motor activity, psychomotor agitation. Attention span is poor. DIAGNOSIS: Major depression with psychotic features. PLAN: Treat her with Namenda 10 mg daily and Aricept 10 mg daily. Provide 18 to 20 minutes of supportive psychotherapy. Chart reviewed and discussed with staff. Miya Munguia M.D. DR: Fran JOB#: [id number] CC:
[2017-11-18] VITALS: BP 155/72
--- NOTE | 2017-11-18 00:45 | Progress Note ---
SUBJECTIVE: The patient is an 87-year-old female patient. ASSESSMENT: She has confusion, disorganized thought process, mood lability, . INCOMPLETE DICTATION Miya Munguia M.D. DR: Fran JOB#: [id number] CC:
[2017-11-18] MEDS: Solu-MEDROL 125mg Inj IV SCH ×4 (02:30→20:23)
[2017-11-18 04:00] VITALS: BP 150/73
--- NOTE | 2017-11-18 07:45 | Progress Note ---
DATE: 11/18/2017 SUBJECTIVE: The patient is an 87-year-old female with sepsis, history of altered mental status, confusion, disorganized thought process. Cognition has declined below baseline. That is why, her attending has requested daily psychiatric consultation. MENTAL STATUS EXAMINATION: This is an 87-year-old female. Confused and disorganized. Motor activity, psychomotor agitation. This patient's mood is depressed. Affect guarded and restricted. She denies auditory hallucinations or delusions. Thought process, disorganized. Denies suicidal or homicidal thoughts. DIAGNOSIS: Paranoid schizophrenia, acute exacerbation. PLAN: Continue titrating up psychotropic medications. An 18 to 20 minutes of supportive psychotherapy provided. Chart reviewed. Discussed with staff. Seen and assessed at bedside. Miya Munguia M.D. DR: HILL JOB#: [id number] CC:
[2017-11-18 08:00] VITALS: BP 142/56
[2017-11-18 08:16] LABS: BASOPHILS % (AUTO) 0.4 % (0.0-2.0); EOSINOPHILS % (AUTO) 0.1 % (0.0-3.0); HEMATOCRIT 39.8 % (37.0-47.0); HEMOGLOBIN 13.4 G/DL (12.0-16.0); MEAN CORPUSCULAR VOLUME 89 FL (80-99); NEUTROPHILS % (AUTO) 78.6 % (45.0-75.0); PLATELET COUNT 183 K/UL (150-450); RED BLOOD COUNT 4.47 M/UL (4.20-5.40); RED CELL DISTRIBUTION WIDTH 11.7 % (11.6-14.8)
[2017-11-18 08:18] LABS: ANION GAP 8 mmol/L (5-15); BLOOD UREA NITROGEN 22 mg/dL (7-18); CALCIUM 8.2 MG/DL (8.5-10.1); CARBON DIOXIDE 27 MMOL/L (21-32); CHLORIDE 107 MMOL/L (98-107); CREATININE 0.7 MG/DL (0.55-1.30); POTASSIUM 3.3 MMOL/L (3.5-5.1); SODIUM 142 MMOL/L (136-145)
[2017-11-18] MEDS: Memantine 10mg tab ORAL SCH (09:07)
[2017-11-18] MEDS: Augmentin 875mg Tab ORAL SCH (09:07)
[2017-11-18] MEDS: Donepezil 10mg tab ORAL SCH (09:08)
[2017-11-18] MEDS: Heparin 5000 units/ml inj SUBQ SCH ×2 (09:25→20:23)
--- NOTE | 2017-11-18 11:24 | Infectious Diseases Prog Note ---
Assessment/Plan Assessment/Plan Assessment: COPD exacerbation- ?PNA, no obvious infiltrates on CXR -CXR: Fullness of the upper mediastinum. This may be related to the marked abnormalities of the manubrium and right clavicle seen on prior CT of the chest. This does however the more pronounced compared to the prior exam. The possibility of mass or other etiologies not entirely excluded. Recommend further evaluation with CT of the chest with contrast. Patchy likely left basilar atelectasis. -influenza sc neg -sp cx : nl princess and Lexus Fever, SP leukocytosis, sp -u/a wbc 2/4, nit neg, leuk +1 -Bcx NTD COPD HLD OA Dementia CAD s/p CABG Plan: - DC PO Augumentin # 5 (abx d# 5 /) for COPD exacerbation -Levaquin not done due to prolong QTc and concomitant QTc prolonging med -11/14 SP Zosyn 2 -11/13 SP IV Vanco x1 - Bc -Monitor CBC/BMP, temperatures -aspiration precautions Subjective Constitutional: Denies: no symptoms, fever, chills, fatigue, anorexia, drenching sweats, other Allergies: Coded Allergies: No Known Allergies (Unverified , 09/24/12) Subjective comfortable Objective Vital Signs Last 24 Hour Vital Signs Date Time Temp Pulse Resp B/P (MAP) Pulse Ox O2 Delivery O2 Flow Rate FiO2 11/18/17 08:22 Nasal Cannula 2.0 11/18/17 08:00 97.5 63 19 142/56 96 97.5 11/18/17 07:57 Nasal Cannula 3.0 32 11/18/17 07:56 55 18 Nasal Cannula 3.0 32 11/18/17 07:56 95 Nasal Cannula 3.0 32 11/18/17 04:00 96.8 60 19 150/73 96 96.8 11/18/17 00:00 96.8 71 20 155/72 95 96.8 11/18/17 00:00 95 Nasal Cannula 2.0 11/17/17 20:59 63 18 Nasal Cannula 3.0 32 11/17/17 20:59 Nasal Cannula 3.0 32 11/17/17 20:59 96 Nasal Cannula 3.0 32 11/17/17 20:00 97.9 68 21 154/62 92 97.9 11/17/17 20:00 92 Nasal Cannula 2.0 11/17/17 16:00 Nasal Cannula 2.0 11/17/17 15:46 98.1 67 20 145/62 95 98.1 11/17/17 12:00 97.7 69 20 131/59 94 97.7 11/17/17 12:00 Nasal Cannula 2.0 Height (Feet): 5 Height (Inches): 2.00 Weight (Pounds): 114 HEENT: atraumatic Respiratory/Chest: normal breath sounds Cardiovascular: regular rhythm Abdomen: no organomegaly Laboratory Tests Test 11/18/17 05:15 White Blood Count 4.0 K/UL (4.8-10.8) L Red Blood Count 4.47 M/UL (4.20-5.40) Hemoglobin 13.4 G/DL (12.0-16.0) Hematocrit 39.8 % (37.0-47.0) Mean Corpuscular Volume 89 FL (80-99) Mean Corpuscular Hemoglobin 30.0 PG (27.0-31.0) Mean Corpuscular Hemoglobin Concent 33.6 G/DL (32.0-36.0) Red Cell Distribution Width 11.7 % (11.6-14.8) Platelet Count 183 K/UL (150-450) Mean Platelet Volume 6.7 FL (6.5-10.1) Neutrophils (%) (Auto) 78.6 % (45.0-75.0) H Lymphocytes (%) (Auto) 16.0 % (20.0-45.0) L Monocytes (%) (Auto) 5.0 % (1.0-10.0) Eosinophils (%) (Auto) 0.1 % (0.0-3.0) Basophils (%) (Auto) 0.4 % (0.0-2.0) Sodium Level 142 MMOL/L (136-145) Potassium Level 3.3 MMOL/L (3.5-5.1) L Chloride Level 107 MMOL/L (98-107) Carbon Dioxide Level 27 MMOL/L (21-32) Anion Gap 8 mmol/L (5-15) Blood Urea Nitrogen 22 mg/dL (7-18) H Creatinine 0.7 MG/DL (0.55-1.30) Estimat Glomerular Filtration Rate mL/min (>60) Glucose Level 164 MG/DL (74-106) H Calcium Level 8.2 MG/DL (8.5-10.1) L Current Medications Medications (Trade) Dose Ordered Sig/Sheila Route PRN Reason Start Time Stop Time Status Last Admin Dose Admin Albuterol/ Ipratropium (Albuterol/ Ipratropium) 3 ml Q4H PRN HHN dyspnea 11/15/17 21:00 11/20/17 20:59 Amoxicillin/ Clavulanate Potassium (Augmentin) 875 mg EVERY 12 HOURS ORAL 11/16/17 21:00 11/21/17 22:00 11/18/17 09:07 Dextrose (Dextrose 50%) STAT PRN IV Hypoglycemia 11/15/17 20:00 12/13/17 19:59 Dextrose (Dextrose 50%) STAT PRN IV Hypoglycemia 11/15/17 20:45 12/13/17 20:44 Donepezil HCl (Aricept) 10 mg DAILY ORAL 11/17/17 09:00 12/16/17 08:59 11/18/17 09:08 Heparin Sodium (Porcine) (Heparin 5000 units/ml) 5,000 units EVERY 12 HOURS SUBQ 11/16/17 21:21 12/16/17 21:20 11/18/17 09:25 Ketorolac Tromethamine (Toradol 30mg) 30 mg Q8H PRN IV moderate pain 4-6 11/15/17 20:00 11/20/17 19:59 Lorazepam (Ativan 2mg/ml 1ml) 0.5 mg Q4H PRN IV For Anxiety 11/15/17 20:45 11/20/17 20:44 Memantine (Namenda) 10 mg DAILY ORAL 11/17/17 09:00 12/16/17 08:59 11/18/17 09:07 Methylprednisolone Sodium Succinate (Solu-MEDROL) 60 mg Q6H IV 11/16/17 14:30 12/16/17 14:29 11/18/17 09:06 Nitroglycerin (Ntg) 0.4 mg Q5M X 3 DOSES PRN SL Prn Chest Pain 11/15/17 19:00 12/13/17 20:44 Ondansetron HCl (Zofran) 4 mg Q6H PRN IVP Nausea & Vomiting 11/15/17 20:45 12/13/17 20:44 Promethazine HCl/ Codeine (Phenergan with Codeine) 5 ml Q6H PRN ORAL cough 11/16/17 00:00 12/16/17 00:00 Sodium Chloride 1,000 ml @ 50 mls/hr Q20H IV 11/15/17 21:00 12/15/17 20:59 11/17/17 14:04 Temazepam (Restoril) 15 mg HSPRN PRN ORAL Insomnia 11/15/17 20:45 11/20/17 20:44 Colin Chapa MD November 18, 2017 11:24
[2017-11-18 12:00] VITALS: BP 105/63
--- NOTE | 2017-11-18 15:38 | Pulmonology Progress Note ---
Assessment/Plan Problems: (1) Aspiration pneumonia (2) Sepsis (3) Dementia (4) CAD (coronary artery disease) Assessment/Plan looks comfortable respiratory treatment iv abx titrate fio2 to sat of 92% check cultures chest pt check electrolytes will need a PEG Subjective ROS Limited/Unobtainable: No Constitutional: Reports: no symptoms HEENT: Repors: no symptoms Allergies: Coded Allergies: No Known Allergies (Unverified , 09/24/12) Objective Last 24 Hour Vital Signs Date Time Temp Pulse Resp B/P (MAP) Pulse Ox O2 Delivery O2 Flow Rate FiO2 11/18/17 12:00 97.2 70 18 105/63 95 Nasal Cannula 2.0 97.2 11/18/17 08:22 Nasal Cannula 2.0 11/18/17 08:00 97.5 63 19 142/56 96 97.5 11/18/17 07:57 Nasal Cannula 3.0 32 11/18/17 07:56 55 18 Nasal Cannula 3.0 32 11/18/17 07:56 95 Nasal Cannula 3.0 32 11/18/17 04:00 96.8 60 19 150/73 96 96.8 11/18/17 00:00 96.8 71 20 155/72 95 96.8 11/18/17 00:00 95 Nasal Cannula 2.0 11/17/17 20:59 63 18 Nasal Cannula 3.0 32 11/17/17 20:59 Nasal Cannula 3.0 32 11/17/17 20:59 96 Nasal Cannula 3.0 32 11/17/17 20:00 97.9 68 21 154/62 92 97.9 11/17/17 20:00 92 Nasal Cannula 2.0 11/17/17 16:00 Nasal Cannula 2.0 11/17/17 15:46 98.1 67 20 145/62 95 98.1 Intake and Output 11/17/17 11/18/17 19:00 07:00 Intake Total 550 ml 600 ml Output Total 400 ml 1350 ml Balance 150 ml -750 ml IV Total 550 ml 600 ml Output Urine Total 400 ml 1350 ml Objective General Appearance: WD/WN HEENT: normocephalic Respiratory/Chest: chest wall non-tender, lungs clear Cardiovascular: normal peripheral pulses, normal rate Abdomen: normal bowel sounds, soft, non tender Genitourinary: normal external genitalia Extremities: no clubbing 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 Laboratory Tests 11/18/17 05:15: White Blood Count 4.0L, Red Blood Count 4.47, Hemoglobin 13.4, Hematocrit 39.8, Mean Corpuscular Volume 89, Mean Corpuscular Hemoglobin 30.0, Mean Corpuscular Hemoglobin Concent 33.6, Red Cell Distribution Width 11.7, Platelet Count 183, Mean Platelet Volume 6.7, Neutrophils (%) (Auto) 78.6H, Lymphocytes (%) (Auto) 16.0L, Monocytes (%) (Auto) 5.0, Eosinophils (%) (Auto) 0.1, Basophils (%) (Auto ) 0.4, Sodium Level 142, Potassium Level 3.3L, Chloride Level 107, Carbon Dioxide Level 27, Anion Gap 8, Blood Urea Nitrogen 22H, Creatinine 0.7, Estimat Glomerular Filtration Rate , Glucose Level 164H, Calcium Level 8.2L Current Medications Medications (Trade) Dose Ordered Sig/Sheila Route PRN Reason Start Time Stop Time Status Last Admin Dose Admin Albuterol/ Ipratropium (Albuterol/ Ipratropium) 3 ml Q4H PRN HHN dyspnea 11/15/17 21:00 11/20/17 20:59 Cefoxitin Sodium 1 gm/Dextrose 55 ml @ 110 mls/hr ONCE PRN IV CONSUMER RELATIONS SPECIALIST TO GI LAB 11/19/17 12:00 11/26/17 11:59 Dextrose (Dextrose 50%) STAT PRN IV Hypoglycemia 11/15/17 20:00 12/13/17 19:59 Dextrose (Dextrose 50%) STAT PRN IV Hypoglycemia 11/15/17 20:45 12/13/17 20:44 Donepezil HCl (Aricept) 10 mg DAILY ORAL 11/17/17 09:00 12/16/17 08:59 11/18/17 09:08 Heparin Sodium (Porcine) (Heparin 5000 units/ml) 5,000 units EVERY 12 HOURS SUBQ 11/16/17 21:21 12/16/17 21:20 11/18/17 09:25 Ketorolac Tromethamine (Toradol 30mg) 30 mg Q8H PRN IV moderate pain 4-6 11/15/17 20:00 11/20/17 19:59 Lorazepam (Ativan 2mg/ml 1ml) 0.5 mg Q4H PRN IV For Anxiety 11/15/17 20:45 11/20/17 20:44 Memantine (Namenda) 10 mg DAILY ORAL 11/17/17 09:00 12/16/17 08:59 11/18/17 09:07 Methylprednisolone Sodium Succinate (Solu-MEDROL) 60 mg Q6H IV 11/16/17 14:30 12/16/17 14:29 11/18/17 14:57 Nitroglycerin (Ntg) 0.4 mg Q5M X 3 DOSES PRN SL Prn Chest Pain 11/15/17 19:00 12/13/17 20:44 Ondansetron HCl (Zofran) 4 mg Q6H PRN IVP Nausea & Vomiting 11/15/17 20:45 12/13/17 20:44 Promethazine HCl/ Codeine (Phenergan with Codeine) 5 ml Q6H PRN ORAL cough 11/16/17 00:00 12/16/17 00:00 Sodium Chloride 1,000 ml @ 50 mls/hr Q20H IV 11/15/17 21:00 12/15/17 20:59 11/18/17 14:01 Temazepam (Restoril) 15 mg HSPRN PRN ORAL Insomnia 11/15/17 20:45 11/20/17 20:44 Warren Lentz MD November 18, 2017 15:38
--- NOTE | 2017-11-18 16:02 | General Progress Note ---
Assessment/Plan Problem List: (1) SOB (shortness of breath) ICD Codes: R06.02 - Shortness of breath SNOMED: 258901035 (2) UTI (urinary tract infection) ICD Codes: N39.0 - Urinary tract infection, site not specified SNOMED: 90883869 (3) Weak ICD Codes: R53.1 - Weakness SNOMED: 51578504 (4) Diabetes ICD Codes: E11.9 - Type 2 diabetes mellitus without complications SNOMED: 70399212 (5) Sepsis ICD Codes: A41.9 - Sepsis, unspecified organism SNOMED: 78490167 (6) Shortness of breath ICD Codes: R06.02 - Shortness of breath SNOMED: 497045577 (7) Dementia ICD Codes: F03.90 - Unspecified dementia without behavioral disturbance SNOMED: 91198900 Status: unchanged Assessment/Plan 02 pulm tx abx ot pt diet cbc bmp am gi eval for peg Subjective Constitutional: Reports: weakness Allergies: Coded Allergies: No Known Allergies (Unverified , 09/24/12) All Systems: reviewed and negative except above Subjective o2nc sleepy Objective Last 24 Hour Vital Signs Date Time Temp Pulse Resp B/P (MAP) Pulse Ox O2 Delivery O2 Flow Rate FiO2 11/18/17 12:00 97.2 70 18 105/63 95 Nasal Cannula 2.0 97.2 11/18/17 08:22 Nasal Cannula 2.0 11/18/17 08:00 97.5 63 19 142/56 96 97.5 11/18/17 07:57 Nasal Cannula 3.0 32 11/18/17 07:56 55 18 Nasal Cannula 3.0 32 11/18/17 07:56 95 Nasal Cannula 3.0 32 11/18/17 04:00 96.8 60 19 150/73 96 96.8 11/18/17 00:00 96.8 71 20 155/72 95 96.8 11/18/17 00:00 95 Nasal Cannula 2.0 11/17/17 20:59 63 18 Nasal Cannula 3.0 32 11/17/17 20:59 Nasal Cannula 3.0 32 11/17/17 20:59 96 Nasal Cannula 3.0 32 11/17/17 20:00 97.9 68 21 154/62 92 97.9 11/17/17 20:00 92 Nasal Cannula 2.0 Intake and Output 11/17/17 11/18/17 19:00 07:00 Intake Total 550 ml 600 ml Output Total 400 ml 1350 ml Balance 150 ml -750 ml IV Total 550 ml 600 ml Output Urine Total 400 ml 1350 ml Laboratory Tests 11/18/17 05:15: White Blood Count 4.0L, Red Blood Count 4.47, Hemoglobin 13.4, Hematocrit 39.8, Mean Corpuscular Volume 89, Mean Corpuscular Hemoglobin 30.0, Mean Corpuscular Hemoglobin Concent 33.6, Red Cell Distribution Width 11.7, Platelet Count 183, Mean Platelet Volume 6.7, Neutrophils (%) (Auto) 78.6H, Lymphocytes (%) (Auto) 16.0L, Monocytes (%) (Auto) 5.0, Eosinophils (%) (Auto) 0.1, Basophils (%) (Auto ) 0.4, Sodium Level 142, Potassium Level 3.3L, Chloride Level 107, Carbon Dioxide Level 27, Anion Gap 8, Blood Urea Nitrogen 22H, Creatinine 0.7, Estimat Glomerular Filtration Rate , Glucose Level 164H, Calcium Level 8.2L Height (Feet): 5 Height (Inches): 2.00 Weight (Pounds): 114 General Appearance: lethargic EENT: normal ENT inspection Neck: normal alignment Cardiovascular: normal peripheral pulses, normal rate, regular rhythm Respiratory/Chest: chest wall non-tender, lungs clear, normal breath sounds Abdomen: normal bowel sounds, non tender, soft Extremities: normal inspection Edema: no edema noted Arm (L), no edema noted Arm (R), no edema noted Leg (L), no edema noted Leg (R), no edema noted Pedal (L), no edema noted Pedal (R), no edema noted Generalized Neurologic: motor weakness Skin: normal pigmentation, warm/dry Gene Longmy KarieCharlotte DO November 18, 2017 16:02
--- NOTE | 2017-11-18 16:05 | GI Initial Consult Note ---
History of Present Illness General Date patient seen: November 18, 2017 Time patient seen: 16:00 Reason for Hospitalization: Dyspnea/Respdistress Referring physician: IGNACIO SLATER Reason for Consultation: DYSPHAGIA Present Illness HPI 87yo F p/w cough and possible COPD exacerbation from SNF, was just at 2 outside hospitals for similar reasons in the past week Patient is nonverbal but has an apparent COPD and CAD history s/p CABG She was found to be febrile here but in no obvious distress. GI consulted for PEG evaluation. ROS limited, seen on floor NAD. ST evaluation reviewed s/p video swallow study noted pt as high risk for audible and silent aspiration if PO is given. Patient seen, chart and labs reviewed and we have agreed to assessment. D/w with RN and ST. Home Meds Active Scripts Capsaicin (Zostrix Hp) 56.6 Gm Cream..g., 1 APPLIC TP BID PRN for For Pain, #30 GM 1 Refill Prov:Alberto Rollins M.D. 06/25/16 Tramadol Hcl* (ULTRAM*) 50 Mg Tablet, 50 MG ORAL Q6H PRN for For Pain, #16 TAB 0 Refills Prov:Alberto Rollins M.D. 06/25/16 Acyclovir* (ACYCLOVIR*) 400 Mg Tablet, 800 MG ORAL FIVE TIMES A DAY for 7 Days, #35 TAB Prov:Alberto Rollins M.D. 06/25/16 Reported Medications Cephalexin* (KEFLEX*) 500 Mg Capsule, 500 MG ORAL EVERY 6 HOURS for 10 Days, CAP 11/13/17 Memantine Hcl* (NAMENDA*) 10 Mg Tablet, 10 MG PO DAILY, #10 TAB Take 1 tablet by mouth every day. 09/24/12 Multivitamin (ANIMAL SHAPES VITAMINS) 1 Each Tab.chew, 1 EACH PO DAILY 09/24/12 Docusate Sodium* (COLACE*) 100 Mg Capsule, 100 MG PO BID 09/24/12 Donepezil Hcl* (ARICEPT*) 10 Mg Tablet, 10 MG PO HS 09/24/12 Nitroglycerin (NITROGLYCERIN) 0.4 Mg Tab.subl, 0.4 MG SL needed 09/24/12 Simvastatin (ZOCOR) 40 Mg Tablet, 40 MG PO QHS 09/24/12 Ascorbic Acid* (VITAMIN C*) 500 Mg Tablet, 500 MG PO DAILY, TAB 09/24/12 Zinc Gluconate (ZINC) 77 Mg Lozenge, 220 MG PO DAILY 09/24/12 Tramadol Hcl* (ULTRAM*) 50 Mg Tablet, 50 MG PO Q6H, #15 TAB 09/24/12 Magnesium Hydroxide (Milk of Magnesia) 30 Ml Susp, 30 ML PO TID 09/24/12 Megestrol Acetate (Megestrol Acetate) 40 Mg Tab, 400 MG PO DAILY, #10 TAB 09/24/12 Ferrous Sulfate* (FERROUS SULFATE*) 325 Mg Tablet, 325 MG ORAL DAILY, #10 TAB 09/24/12 Acetaminophen (TYLENOL 8 HOUR) 650 Mg Tablet.er, 650 MG PO DAILY 09/24/12 Med list reviewed/reconciled: Yes Allergies: Coded Allergies: No Known Allergies (Unverified , 09/24/12) Patient History Limited by: medical condition History Provided By: Medical Record PMH Narrative Limited by: age, medical condition Past Medical History: see triage record, old chart reviewed Reviewed Nursing Documentation: PMH: Agreed; PSxH: Agreed Nursing Documentation-PMH Past Medical History: No History, Except For Hx Cardiac Problems: Yes - heart disease high cholesterol osteoarthritis Hx COPD: Yes Hx Cancer: No Hx Gastrointestinal Problems: No Hx Neurological Problems: Yes - dementia Hx Dementia: Yes Review of Systems All Other Systems: limited Physical Exam Vital Signs Date Time Temp Pulse Resp B/P (MAP) Pulse Ox O2 Delivery O2 Flow Rate FiO2 11/14/17 08:00 98.1 94 18 150/94 96 Nasal Cannula 4.0 98.1 11/15/17 07:23 36 Sp02 EP Interpretation: reviewed, normal Labs Laboratory Tests Test 11/18/17 05:15 White Blood Count 4.0 K/UL (4.8-10.8) L Red Blood Count 4.47 M/UL (4.20-5.40) Hemoglobin 13.4 G/DL (12.0-16.0) Hematocrit 39.8 % (37.0-47.0) Mean Corpuscular Volume 89 FL (80-99) Mean Corpuscular Hemoglobin 30.0 PG (27.0-31.0) Mean Corpuscular Hemoglobin Concent 33.6 G/DL (32.0-36.0) Red Cell Distribution Width 11.7 % (11.6-14.8) Platelet Count 183 K/UL (150-450) Mean Platelet Volume 6.7 FL (6.5-10.1) Neutrophils (%) (Auto) 78.6 % (45.0-75.0) H Lymphocytes (%) (Auto) 16.0 % (20.0-45.0) L Monocytes (%) (Auto) 5.0 % (1.0-10.0) Eosinophils (%) (Auto) 0.1 % (0.0-3.0) Basophils (%) (Auto) 0.4 % (0.0-2.0) Sodium Level 142 MMOL/L (136-145) Potassium Level 3.3 MMOL/L (3.5-5.1) L Chloride Level 107 MMOL/L (98-107) Carbon Dioxide Level 27 MMOL/L (21-32) Anion Gap 8 mmol/L (5-15) Blood Urea Nitrogen 22 mg/dL (7-18) H Creatinine 0.7 MG/DL (0.55-1.30) Estimat Glomerular Filtration Rate mL/min (>60) Glucose Level 164 MG/DL (74-106) H Calcium Level 8.2 MG/DL (8.5-10.1) L General Appearance: well appearing, no apparent distress, alert Head: normocephalic EENT: PERRL/EOMI, normal ENT inspection Neck: supple Respiratory: normal breath sounds, no respiratory distress Cardiovascular: normal rate Gastrointestinal: normal inspection, non tender, soft, normal bowel sounds, non -distended Rectal: deferred Genitourinary: no CVA tenderness Musculoskeletal: normal inspection, back normal Neurologic: alert Skin: normal inspection, normal color, no rash, warm/dry, palpation normal, well hydrated Lymphatic: normal inspection, no adenopathy Current Medications Current Medications Medications (Trade) Dose Ordered Sig/Sheila Route PRN Reason Start Time Stop Time Status Last Admin Dose Admin Albuterol/ Ipratropium (Albuterol/ Ipratropium) 3 ml Q4H PRN HHN dyspnea 11/15/17 21:00 11/20/17 20:59 Cefoxitin Sodium 1 gm/Dextrose 55 ml @ 110 mls/hr ONCE PRN IV HOTEL RECREATIONAL FACILITIES MANAGER TO GI LAB 11/19/17 12:00 11/26/17 11:59 Dextrose (Dextrose 50%) STAT PRN IV Hypoglycemia 11/15/17 20:00 12/13/17 19:59 Dextrose (Dextrose 50%) STAT PRN IV Hypoglycemia 11/15/17 20:45 12/13/17 20:44 Donepezil HCl (Aricept) 10 mg DAILY ORAL 11/17/17 09:00 12/16/17 08:59 11/18/17 09:08 Heparin Sodium (Porcine) (Heparin 5000 units/ml) 5,000 units EVERY 12 HOURS SUBQ 11/16/17 21:21 12/16/17 21:20 11/18/17 09:25 Ketorolac Tromethamine (Toradol 30mg) 30 mg Q8H PRN IV moderate pain 4-6 11/15/17 20:00 11/20/17 19:59 Lorazepam (Ativan 2mg/ml 1ml) 0.5 mg Q4H PRN IV For Anxiety 11/15/17 20:45 11/20/17 20:44 Memantine (Namenda) 10 mg DAILY ORAL 11/17/17 09:00 12/16/17 08:59 11/18/17 09:07 Methylprednisolone Sodium Succinate (Solu-MEDROL) 60 mg Q6H IV 11/16/17 14:30 12/16/17 14:29 11/18/17 14:57 Nitroglycerin (Ntg) 0.4 mg Q5M X 3 DOSES PRN SL Prn Chest Pain 11/15/17 19:00 12/13/17 20:44 Ondansetron HCl (Zofran) 4 mg Q6H PRN IVP Nausea & Vomiting 11/15/17 20:45 12/13/17 20:44 Promethazine HCl/ Codeine (Phenergan with Codeine) 5 ml Q6H PRN ORAL cough 11/16/17 00:00 12/16/17 00:00 Sodium Chloride 1,000 ml @ 50 mls/hr Q20H IV 11/15/17 21:00 12/15/17 20:59 11/18/17 14:01 Temazepam (Restoril) 15 mg HSPRN PRN ORAL Insomnia 11/15/17 20:45 11/20/17 20:44 GI: Plan Problems: (1) Encounter for PEG (percutaneous endoscopic gastrostomy) (2) Dysphagia (3) Severe malnutrition (4) Dehydration (5) Diabetes Plan PEG tentatively scheduled for tomorrow, pending consent from conservator. - maintain NPO + IVFs prn transfusions ppi fu labs will follow with additional recs Discussed with Dr. Mahajan. Thank you for this patient referral, we will follow. The patient was seen and examined at bedside and all new and available data was reviewed in the patients chart. I agree with the above findings, impression and plan. (Patient seen earlier today. Signature stamp does not reflect patient encounter time.). - MD Gabi Busby,[facility] OCCUPATIONAL THERAPY SPECIALIST November 18, 2017 16:05
[2017-11-18 16:09] VITALS: BP 154/59
[2017-11-18] MEDS ORDERED: 1/2 NS 1000ml IV ONE (17:04)
[2017-11-18 20:20] VITALS: BP 151/69
[2017-11-19] VITALS (7 sets, daily range): BP systolic 131–149; BP diastolic 57–77
[2017-11-19] MEDS: Solu-MEDROL 125mg Inj IV SCH ×4 (02:28→20:22)
[2017-11-19 08:08] LABS: BASOPHILS % (AUTO) 0.4 % (0.0-2.0); HEMOGLOBIN 13.3 G/DL (12.0-16.0); LYMPHOCYTES % (AUTO) 12.8 % (20.0-45.0); MEAN CORPUSCULAR VOLUME 90 FL (80-99); MONOCYTES % (AUTO) 3.1 % (1.0-10.0); NEUTROPHILS % (AUTO) 83.7 % (45.0-75.0); PLATELET COUNT 194 K/UL (150-450); RED BLOOD COUNT 4.44 M/UL (4.20-5.40); WHITE BLOOD COUNT 4.8 K/UL (4.8-10.8)
[2017-11-19 08:28] LABS: ANION GAP 7 mmol/L (5-15); BLOOD UREA NITROGEN 24 mg/dL (7-18); CALCIUM 8.5 MG/DL (8.5-10.1); CARBON DIOXIDE 29 MMOL/L (21-32); CHLORIDE 107 MMOL/L (98-107); CREATININE 0.8 MG/DL (0.55-1.30); POTASSIUM 3.6 MMOL/L (3.5-5.1); SODIUM 143 MMOL/L (136-145)
[2017-11-19] MEDS: Donepezil 10mg tab ORAL SCH (09:00)
[2017-11-19] MEDS: Memantine 10mg tab ORAL SCH (09:00)
[2017-11-19 09:24] LABS: INR 1.2 (0.9-1.1)
--- NOTE | 2017-11-19 09:39 | GI Progress Note ---
Assessment/Plan Problems: (1) Encounter for PEG (percutaneous endoscopic gastrostomy) ICD Codes: Z43.1 - Encounter for attention to gastrostomy SNOMED: 042001916, 508608650 (2) Severe malnutrition ICD Codes: E43 - Unspecified severe protein-calorie malnutrition SNOMED: 45222549 (3) Dysphagia ICD Codes: R13.10 - Dysphagia, unspecified SNOMED: 88025569, 264442580 (4) Dehydration ICD Codes: E86.0 - Dehydration SNOMED: 30986461 (5) Weak ICD Codes: R53.1 - Weakness SNOMED: 37245885 Status: unchanged Status Narrative Discussed with Dr. Mahajan. Assessment/Plan PEG cancelled today, no consent >> spoke to public guardian, now awaiting decision of court. insert NGT, CXR confirmation TF's per RD prn transfusions ppi fu labs NPO @ [place] if consent is signed. The patient was seen and examined at bedside and all new and available data was reviewed in the patients chart. I agree with the above findings, impression and plan. (Patient seen earlier today. Signature stamp does not reflect patient encounter time.). - Issa Mahajan MD Subjective Subjective limited Objective Last 24 Hour Vital Signs Date Time Temp Pulse Resp B/P (MAP) Pulse Ox O2 Delivery O2 Flow Rate FiO2 11/19/17 08:10 96 Nasal Cannula 2.0 28 11/19/17 08:10 64 18 Nasal Cannula 2.0 28 11/19/17 08:10 Nasal Cannula 2.0 28 11/19/17 08:00 97.0 59 16 131/59 97.0 11/19/17 04:49 97.1 62 20 149/72 100 97.1 11/19/17 04:49 100 Nasal Cannula 2.0 11/19/17 00:34 93 Nasal Cannula 2.0 11/19/17 00:34 96.8 61 19 147/64 93 96.8 11/18/17 20:29 96 Nasal Cannula 3.0 32 11/18/17 20:29 66 18 Nasal Cannula 3.0 32 11/18/17 20:29 Nasal Cannula 3.0 32 11/18/17 20:20 94 Nasal Cannula 2.0 11/18/17 20:20 97.5 66 19 151/69 94 97.5 11/18/17 16:09 97.9 71 18 154/59 94 Nasal Cannula 2.0 97.9 11/18/17 12:00 97.2 70 18 105/63 95 Nasal Cannula 2.0 97.2 Intake and Output 11/18/17 11/19/17 19:00 07:00 Intake Total 400 ml 600 ml Output Total 600 ml Balance -200 ml 600 ml IV Total 400 ml 600 ml Output Urine Total 600 ml Laboratory Tests Test 11/19/17 05:05 White Blood Count 4.8 K/UL (4.8-10.8) Red Blood Count 4.44 M/UL (4.20-5.40) Hemoglobin 13.3 G/DL (12.0-16.0) Hematocrit 40.0 % (37.0-47.0) Mean Corpuscular Volume 90 FL (80-99) Mean Corpuscular Hemoglobin 29.9 PG (27.0-31.0) Mean Corpuscular Hemoglobin Concent 33.2 G/DL (32.0-36.0) Red Cell Distribution Width 12.0 % (11.6-14.8) Platelet Count 194 K/UL (150-450) Mean Platelet Volume 6.9 FL (6.5-10.1) Neutrophils (%) (Auto) 83.7 % (45.0-75.0) H Lymphocytes (%) (Auto) 12.8 % (20.0-45.0) L Monocytes (%) (Auto) 3.1 % (1.0-10.0) Eosinophils (%) (Auto) 0.0 % (0.0-3.0) Basophils (%) (Auto) 0.4 % (0.0-2.0) Prothrombin Time 12.0 SEC (9.30-11.50) H Prothromb Time International Ratio 1.2 (0.9-1.1) H Activated Partial Thromboplast Time 24 SEC (23-33) Sodium Level 143 MMOL/L (136-145) Potassium Level 3.6 MMOL/L (3.5-5.1) Chloride Level 107 MMOL/L (98-107) Carbon Dioxide Level 29 MMOL/L (21-32) Anion Gap 7 mmol/L (5-15) Blood Urea Nitrogen 24 mg/dL (7-18) H Creatinine 0.8 MG/DL (0.55-1.30) Estimat Glomerular Filtration Rate mL/min (>60) Glucose Level 161 MG/DL (74-106) H Calcium Level 8.5 MG/DL (8.5-10.1) Height (Feet): 5 Height (Inches): 2.00 Weight (Pounds): 114 General Appearance: alert, thin Cardiovascular: normal rate Respiratory/Chest: normal breath sounds, no respiratory distress Abdominal Exam: normal bowel sounds, non tender, soft Extremities: non-tender Leonor Ashley NP November 19, 2017 09:39 Ivan Mahajan MD November 20, 2017 11:12
[2017-11-19] MEDS ORDERED: D5 1/2NS 1,000 ML IV SCH (09:45)
--- NOTE | 2017-11-19 11:00 | Progress Note ---
DATE: 11/19/2017 SUBJECTIVE: The patient is an 87-year-old female with sepsis and dysphagia. She continues to be confused and disorganized. Mood labile. She has no logical plan for her own-self care. Staff will help with support. suicidal ideations. The patient has confusion and disorganized thought process. That is why, her attending has requested daily psychiatric consultation. MENTAL STATUS EXAMINATION: This is an 87-year-old female. Appearance is disheveled. Attitude, irritable and agitated. Affect, guarded and restricted. Intellect poor. Mood, depressed and anxious. Motor activity, psychomotor agitation. Attention span is poor. Orientation x2. Speech is pressured. Thought process, disorganized and illogical. Thought content, auditory hallucinations and paranoid delusions. Insight and judgment is poor. DIAGNOSIS: Paranoid schizophrenia with acute exacerbation. PLAN: Continue titrating up her medications to stabilize her mood. Provide 18 to 20 minutes of supportive psychotherapy and encouraged her to interact appropriately with staff and other patients. Chart is reviewed. Discussed with staff. Seen and assessed at the bedside. Miya Munguia M.D. DR: DAVID JOB#: [id number] CC:
--- NOTE | 2017-11-19 11:09 | Infectious Diseases Prog Note ---
Assessment/Plan Assessment/Plan Assessment: COPD exacerbation- ?PNA, no obvious infiltrates on CXR -CXR: Fullness of the upper mediastinum. This may be related to the marked abnormalities of the manubrium and right clavicle seen on prior CT of the chest. This does however the more pronounced compared to the prior exam. The possibility of mass or other etiologies not entirely excluded. Recommend further evaluation with CT of the chest with contrast. Patchy likely left basilar atelectasis. -influenza sc neg -sp cx : nl princess and Lexus Fever, SP leukocytosis, sp -u/a wbc 2/4, nit neg, leuk +1 -Bcx NTD COPD HLD OA Dementia CAD s/p CABG Plan: Monitor pt off of AB Rx - 11/18 SP PO Augumentin # 5 (abx d# ) -Levaquin not done due to prolong QTc and concomitant QTc prolonging med -11/14 SP Zosyn 2 -11/13 SP IV Vanco x1 -Monitor CBC/BMP, temperatures -aspiration precautions PEG cancelled today, no consent Subjective Allergies: Coded Allergies: No Known Allergies (Unverified , 09/24/12) Subjective Afebrile Objective Vital Signs Last 24 Hour Vital Signs Date Time Temp Pulse Resp B/P (MAP) Pulse Ox O2 Delivery O2 Flow Rate FiO2 11/19/17 08:10 96 Nasal Cannula 2.0 28 11/19/17 08:10 64 18 Nasal Cannula 2.0 28 11/19/17 08:10 Nasal Cannula 2.0 28 11/19/17 08:00 97.0 59 16 131/59 97.0 11/19/17 04:49 97.1 62 20 149/72 100 97.1 11/19/17 04:49 100 Nasal Cannula 2.0 11/19/17 00:34 93 Nasal Cannula 2.0 11/19/17 00:34 96.8 61 19 147/64 93 96.8 11/18/17 20:29 96 Nasal Cannula 3.0 32 11/18/17 20:29 66 18 Nasal Cannula 3.0 32 11/18/17 20:29 Nasal Cannula 3.0 32 11/18/17 20:20 94 Nasal Cannula 2.0 11/18/17 20:20 97.5 66 19 151/69 94 97.5 11/18/17 16:09 97.9 71 18 154/59 94 Nasal Cannula 2.0 97.9 11/18/17 12:00 97.2 70 18 105/63 95 Nasal Cannula 2.0 97.2 Height (Feet): 5 Height (Inches): 2.00 Weight (Pounds): 114 HEENT: atraumatic Respiratory/Chest: no respiratory distress Cardiovascular: regularly irregular Abdomen: no organomegaly Laboratory Tests Test 11/19/17 05:05 White Blood Count 4.8 K/UL (4.8-10.8) Red Blood Count 4.44 M/UL (4.20-5.40) Hemoglobin 13.3 G/DL (12.0-16.0) Hematocrit 40.0 % (37.0-47.0) Mean Corpuscular Volume 90 FL (80-99) Mean Corpuscular Hemoglobin 29.9 PG (27.0-31.0) Mean Corpuscular Hemoglobin Concent 33.2 G/DL (32.0-36.0) Red Cell Distribution Width 12.0 % (11.6-14.8) Platelet Count 194 K/UL (150-450) Mean Platelet Volume 6.9 FL (6.5-10.1) Neutrophils (%) (Auto) 83.7 % (45.0-75.0) H Lymphocytes (%) (Auto) 12.8 % (20.0-45.0) L Monocytes (%) (Auto) 3.1 % (1.0-10.0) Eosinophils (%) (Auto) 0.0 % (0.0-3.0) Basophils (%) (Auto) 0.4 % (0.0-2.0) Prothrombin Time 12.0 SEC (9.30-11.50) H Prothromb Time International Ratio 1.2 (0.9-1.1) H Activated Partial Thromboplast Time 24 SEC (23-33) Sodium Level 143 MMOL/L (136-145) Potassium Level 3.6 MMOL/L (3.5-5.1) Chloride Level 107 MMOL/L (98-107) Carbon Dioxide Level 29 MMOL/L (21-32) Anion Gap 7 mmol/L (5-15) Blood Urea Nitrogen 24 mg/dL (7-18) H Creatinine 0.8 MG/DL (0.55-1.30) Estimat Glomerular Filtration Rate mL/min (>60) Glucose Level 161 MG/DL (74-106) H Calcium Level 8.5 MG/DL (8.5-10.1) Current Medications Medications (Trade) Dose Ordered Sig/Sheila Route PRN Reason Start Time Stop Time Status Last Admin Dose Admin Albuterol/ Ipratropium (Albuterol/ Ipratropium) 3 ml Q4H PRN HHN dyspnea 11/15/17 21:00 11/20/17 20:59 Cefoxitin Sodium 1 gm/Dextrose 55 ml @ 110 mls/hr ONCE PRN IV BAT PERSON TO GI LAB 11/19/17 12:00 11/26/17 11:59 Dextrose (Dextrose 50%) STAT PRN IV Hypoglycemia 11/15/17 20:00 12/13/17 19:59 Dextrose (Dextrose 50%) STAT PRN IV Hypoglycemia 11/15/17 20:45 12/13/17 20:44 Dextrose/ Electrolytes 1,000 ml @ 50 mls/hr Q20H IV 11/19/17 10:30 12/19/17 10:29 Donepezil HCl (Aricept) 10 mg DAILY ORAL 11/17/17 09:00 12/16/17 08:59 11/18/17 09:08 Heparin Sodium (Porcine) (Heparin 5000 units/ml) 5,000 units EVERY 12 HOURS SUBQ 11/16/17 21:21 12/16/17 21:20 11/18/17 09:25 Ketorolac Tromethamine (Toradol 30mg) 30 mg Q8H PRN IV moderate pain 4-6 11/15/17 20:00 11/20/17 19:59 Lorazepam (Ativan 2mg/ml 1ml) 0.5 mg Q4H PRN IV For Anxiety 11/15/17 20:45 11/20/17 20:44 Memantine (Namenda) 10 mg DAILY ORAL 11/17/17 09:00 12/16/17 08:59 11/18/17 09:07 Methylprednisolone Sodium Succinate (Solu-MEDROL) 60 mg Q6H IV 11/16/17 14:30 12/16/17 14:29 11/19/17 08:39 Nitroglycerin (Ntg) 0.4 mg Q5M X 3 DOSES PRN SL Prn Chest Pain 11/15/17 19:00 6/8/18 20:44 Ondansetron HCl (Zofran) 4 mg Q6H PRN IVP Nausea & Vomiting 11/15/17 20:45 12/13/17 20:44 Promethazine HCl/ Codeine (Phenergan with Codeine) 5 ml Q6H PRN ORAL cough 11/16/17 00:00 12/16/17 00:00 Temazepam (Restoril) 15 mg HSPRN PRN ORAL Insomnia 11/15/17 20:45 11/20/17 20:44 Colin Chapa MD November 19, 2017 11:09
[2017-11-19] MEDS ORDERED: cefOXitin Sod 1 GM in D5W 55 ML IV PRN (12:00)
[2017-11-19] MEDS: D5 1/2NS w/KCl 20mEq 1,000 ML IV SCH (12:23)
[2017-11-19] MEDS: Heparin 5000 units/ml inj SUBQ SCH ×2 (12:25→20:25)
--- NOTE | 2017-11-19 14:05 | Pulmonology Progress Note ---
Assessment/Plan Problems: (1) Aspiration pneumonia (2) Sepsis (3) Dementia (4) CAD (coronary artery disease) Assessment/Plan looks comfortable respiratory treatment iv abx titrate fio2 to sat of 92% check cultures chest pt check electrolytes will need a PEG VS comfort feeding awaiting for conservator to sign the consent for PEG. Subjective ROS Limited/Unobtainable: No Allergies: Coded Allergies: No Known Allergies (Unverified , 09/24/12) Objective Last 24 Hour Vital Signs Date Time Temp Pulse Resp B/P (MAP) Pulse Ox O2 Delivery O2 Flow Rate FiO2 11/19/17 12:08 97.5 72 16 144/57 97.5 11/19/17 08:10 96 Nasal Cannula 2.0 28 11/19/17 08:10 64 18 Nasal Cannula 2.0 28 11/19/17 08:10 Nasal Cannula 2.0 28 11/19/17 08:00 97.0 59 16 131/59 97.0 11/19/17 04:49 97.1 62 20 149/72 100 97.1 11/19/17 04:49 100 Nasal Cannula 2.0 11/19/17 00:34 93 Nasal Cannula 2.0 11/19/17 00:34 96.8 61 19 147/64 93 96.8 11/18/17 20:29 96 Nasal Cannula 3.0 32 11/18/17 20:29 66 18 Nasal Cannula 3.0 32 11/18/17 20:29 Nasal Cannula 3.0 32 11/18/17 20:20 94 Nasal Cannula 2.0 11/18/17 20:20 97.5 66 19 151/69 94 97.5 11/18/17 16:09 97.9 71 18 154/59 94 Nasal Cannula 2.0 97.9 Intake and Output 11/18/17 11/19/17 19:00 07:00 Intake Total 400 ml 600 ml Output Total 600 ml Balance -200 ml 600 ml IV Total 400 ml 600 ml Output Urine Total 600 ml Objective General Appearance: WD/WN HEENT: normocephalic Respiratory/Chest: chest wall non-tender, lungs clear Cardiovascular: normal peripheral pulses, normal rate Abdomen: normal bowel sounds, soft, non tender Genitourinary: normal external genitalia Extremities: no clubbing 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 Laboratory Tests 11/19/17 05:05: White Blood Count 4.8, Red Blood Count 4.44, Hemoglobin 13.3, Hematocrit 40.0, Mean Corpuscular Volume 90, Mean Corpuscular Hemoglobin 29.9, Mean Corpuscular Hemoglobin Concent 33.2, Red Cell Distribution Width 12.0, Platelet Count 194, Mean Platelet Volume 6.9, Neutrophils (%) (Auto) 83.7H, Lymphocytes (%) (Auto) 12.8L, Monocytes (%) (Auto) 3.1, Eosinophils (%) (Auto) 0.0, Basophils (%) (Auto ) 0.4, Prothrombin Time 12.0H, Prothromb Time International Ratio 1.2H, Activated Partial Thromboplast Time 24, Sodium Level 143, Potassium Level 3.6, Chloride Level 107, Carbon Dioxide Level 29, Anion Gap 7, Blood Urea Nitrogen 24H, Creatinine 0.8, Estimat Glomerular Filtration Rate , Glucose Level 161H, Calcium Level 8.5 Current Medications Medications (Trade) Dose Ordered Sig/Sheila Route PRN Reason Start Time Stop Time Status Last Admin Dose Admin Albuterol/ Ipratropium (Albuterol/ Ipratropium) 3 ml Q4H PRN HHN dyspnea 11/15/17 21:00 11/20/17 20:59 Cefoxitin Sodium 1 gm/Dextrose 55 ml @ 110 mls/hr ONCE PRN IV REPRODUCTION SPECIALIST TO GI LAB 11/19/17 12:00 11/26/17 11:59 Dextrose (Dextrose 50%) STAT PRN IV Hypoglycemia 11/15/17 20:00 12/13/17 19:59 Dextrose (Dextrose 50%) STAT PRN IV Hypoglycemia 11/15/17 20:45 12/13/17 20:44 Dextrose/ Electrolytes 1,000 ml @ 50 mls/hr Q20H IV 11/19/17 10:30 12/19/17 10:29 11/19/17 12:23 Donepezil HCl (Aricept) 10 mg DAILY ORAL 11/17/17 09:00 12/16/17 08:59 11/18/17 09:08 Heparin Sodium (Porcine) (Heparin 5000 units/ml) 5,000 units EVERY 12 HOURS SUBQ 11/16/17 21:21 12/16/17 21:20 11/19/17 12:25 Ketorolac Tromethamine (Toradol 30mg) 30 mg Q8H PRN IV moderate pain 4-6 11/15/17 20:00 11/20/17 19:59 Lorazepam (Ativan 2mg/ml 1ml) 0.5 mg Q4H PRN IV For Anxiety 11/15/17 20:45 11/20/17 20:44 Memantine (Namenda) 10 mg DAILY ORAL 11/17/17 09:00 12/16/17 08:59 11/18/17 09:07 Methylprednisolone Sodium Succinate (Solu-MEDROL) 60 mg Q6H IV 11/16/17 14:30 12/16/17 14:29 11/19/17 08:39 Nitroglycerin (Ntg) 0.4 mg Q5M X 3 DOSES PRN SL Prn Chest Pain 11/15/17 19:00 12/13/17 20:44 Ondansetron HCl (Zofran) 4 mg Q6H PRN IVP Nausea & Vomiting 11/15/17 20:45 12/13/17 20:44 Promethazine HCl/ Codeine (Phenergan with Codeine) 5 ml Q6H PRN ORAL cough 11/16/17 00:00 12/16/17 00:00 Temazepam (Restoril) 15 mg HSPRN PRN ORAL Insomnia 11/15/17 20:45 11/20/17 20:44 Warren Lentz MD November 19, 2017 14:05
--- NOTE | 2017-11-19 14:34 | Diagnostic Imaging Report ---
Indication: Post nasogastric tube placement Technique: Supine view of the upper abdomen Comparison: 07/20/2014 Findings: Previously demonstrated gastrostomy is no longer evident. There is a nasogastric tube in place, tip which projects at the level gastric antrum body junction. Small amount of contrast is seen in the ascending colon, presumably from recent video swallow study. There are degenerative changes of the lumbar spine. The bowel gas pattern is grossly unremarkable Impression: Satisfactory position of nasogastric tube Other findings as noted
--- NOTE | 2017-11-19 14:59 | General Progress Note ---
Assessment/Plan Problem List: (1) SOB (shortness of breath) ICD Codes: R06.02 - Shortness of breath SNOMED: 381164558 (2) UTI (urinary tract infection) ICD Codes: N39.0 - Urinary tract infection, site not specified SNOMED: 59348014 (3) Weak ICD Codes: R53.1 - Weakness SNOMED: 86197456 (4) Diabetes ICD Codes: E11.9 - Type 2 diabetes mellitus without complications SNOMED: 75784017 (5) Sepsis ICD Codes: A41.9 - Sepsis, unspecified organism SNOMED: 79538069 (6) Shortness of breath ICD Codes: R06.02 - Shortness of breath SNOMED: 709091083 (7) Dementia ICD Codes: F03.90 - Unspecified dementia without behavioral disturbance SNOMED: 94191559 Status: unchanged Assessment/Plan 02 pulm tx abx ot pt diet cbc bmp am gi eval for peg Subjective Constitutional: Reports: weakness Allergies: Coded Allergies: No Known Allergies (Unverified , 09/24/12) All Systems: reviewed and negative except above Subjective ng calm sleepy Objective Last 24 Hour Vital Signs Date Time Temp Pulse Resp B/P (MAP) Pulse Ox O2 Delivery O2 Flow Rate FiO2 11/19/17 12:08 97.5 72 16 144/57 97.5 11/19/17 08:10 96 Nasal Cannula 2.0 28 11/19/17 08:10 64 18 Nasal Cannula 2.0 28 11/19/17 08:10 Nasal Cannula 2.0 28 11/19/17 08:00 97.0 59 16 131/59 97.0 11/19/17 04:49 97.1 62 20 149/72 100 97.1 11/19/17 04:49 100 Nasal Cannula 2.0 11/19/17 00:34 93 Nasal Cannula 2.0 11/19/17 00:34 96.8 61 19 147/64 93 96.8 11/18/17 20:29 96 Nasal Cannula 3.0 32 11/18/17 20:29 66 18 Nasal Cannula 3.0 32 11/18/17 20:29 Nasal Cannula 3.0 32 11/18/17 20:20 94 Nasal Cannula 2.0 11/18/17 20:20 97.5 66 19 151/69 94 97.5 11/18/17 16:09 97.9 71 18 154/59 94 Nasal Cannula 2.0 97.9 Intake and Output 11/18/17 11/19/17 19:00 07:00 Intake Total 400 ml 600 ml Output Total 600 ml Balance -200 ml 600 ml IV Total 400 ml 600 ml Output Urine Total 600 ml Laboratory Tests 11/19/17 05:05: White Blood Count 4.8, Red Blood Count 4.44, Hemoglobin 13.3, Hematocrit 40.0, Mean Corpuscular Volume 90, Mean Corpuscular Hemoglobin 29.9, Mean Corpuscular Hemoglobin Concent 33.2, Red Cell Distribution Width 12.0, Platelet Count 194, Mean Platelet Volume 6.9, Neutrophils (%) (Auto) 83.7H, Lymphocytes (%) (Auto) 12.8L, Monocytes (%) (Auto) 3.1, Eosinophils (%) (Auto) 0.0, Basophils (%) (Auto ) 0.4, Prothrombin Time 12.0H, Prothromb Time International Ratio 1.2H, Activated Partial Thromboplast Time 24, Sodium Level 143, Potassium Level 3.6, Chloride Level 107, Carbon Dioxide Level 29, Anion Gap 7, Blood Urea Nitrogen 24H, Creatinine 0.8, Estimat Glomerular Filtration Rate , Glucose Level 161H, Calcium Level 8.5 Height (Feet): 5 Height (Inches): 2.00 Weight (Pounds): 114 General Appearance: lethargic EENT: normal ENT inspection Neck: normal alignment Cardiovascular: normal peripheral pulses, normal rate, regular rhythm Respiratory/Chest: chest wall non-tender, lungs clear, normal breath sounds Abdomen: normal bowel sounds, non tender, soft Extremities: normal inspection Edema: no edema noted Arm (L), no edema noted Arm (R), no edema noted Leg (L), no edema noted Leg (R), no edema noted Pedal (L), no edema noted Pedal (R), no edema noted Generalized Neurologic: motor weakness Skin: normal pigmentation, warm/dry Chase Long DO November 19, 2017 14:59
[2017-11-20] VITALS (9 sets, daily range): BP systolic 131–160; BP diastolic 44–88
[2017-11-20] MEDS: Solu-MEDROL 125mg Inj IV SCH ×4 (02:34→21:13)
[2017-11-20] MEDS: D5 1/2NS w/KCl 20mEq 1,000 ML IV SCH (05:44)
[2017-11-20 07:29] LABS: HEMATOCRIT 41.9 % (37.0-47.0); HEMOGLOBIN 14.2 G/DL (12.0-16.0); MEAN CORPUSCULAR VOLUME 90 FL (80-99); PLATELET COUNT 201 K/UL (150-450); RED BLOOD COUNT 4.68 M/UL (4.20-5.40); RED CELL DISTRIBUTION WIDTH 12.3 % (11.6-14.8); WHITE BLOOD COUNT 7.5 K/UL (4.8-10.8)
[2017-11-20 07:43] LABS: INR 1.2 (0.9-1.1)
[2017-11-20 07:52] LABS: ANION GAP 10 mmol/L (5-15); BLOOD UREA NITROGEN 22 mg/dL (7-18); CARBON DIOXIDE 26 MMOL/L (21-32); CHLORIDE 106 MMOL/L (98-107); CREATININE 0.8 MG/DL (0.55-1.30); POTASSIUM 3.7 MMOL/L (3.5-5.1); SODIUM 142 MMOL/L (136-145)
[2017-11-20] MEDS: Heparin 5000 units/ml inj SUBQ SCH ×2 (09:00→21:14)
[2017-11-20] MEDS: Memantine 10mg tab ORAL SCH (09:00)
[2017-11-20] MEDS: Donepezil 10mg tab ORAL SCH (09:00)
--- NOTE | 2017-11-20 11:43 | Pre-Procedure Note/Attestation ---
Pre-Procedure Note/Attestation Complete Prior to Procedure Planned Procedure: not applicable Procedure Narrative: egd/peg Indications for Procedure Pre-Operative Diagnosis: FTT, dysphagia Attestation I attest that I discussed the nature of the procedure; its benefits; risks and complications; and alternatives (and the risks and benefits of such alternatives ), prior to the procedure, with the patient (or the patient's legal sales representative graphic art). I attest that, if there was a reasonable possibility of needing a blood transfusion, the patient (or the patient's legal sales representative graphic art) was given the [facility] standardized written summary, pursuant to the [employer] Dre Blood Safety Act ([place] Health and Safety Code # 1645, as amended). I attest that I re-evaluated the patient just prior to the surgery and that there has been no change in the patient's H&P, except as documented below: Ivan Mahajan MD November 20, 2017 11:43
[2017-11-20] MEDS ORDERED: NS 500ML IVPB ONE (11:50)
[2017-11-20] MEDS ORDERED: Lidocaine 1% MPF 10mg/ml 5ml ONE (12:00)
[2017-11-20] MEDS ORDERED: Propofol 200mg/20ml IV ONE (12:00)
--- NOTE | 2017-11-20 12:06 | Endoscopy Procedure Note ---
Endoscopy Procedure Note General Indication for Procedure: dysphagia, FTT Procedures Performed: EGD, PEG Operative Findings/Diagnosis: same Specimen: none Pt Tolerated Procedure Well: Yes Estimated Blood Loss: none Anesthesia Anesthesiologist: jeff Anesthesia: MAC Inserted Devices Implant(s) used?: No GI Core Measures 50 yrs or older w/o bx or poly: Not Applicable 10yrs. F/U not recommended: Not Applicable Ivan Mahajan MD November 20, 2017 12:06
[2017-11-20] MEDS ORDERED: fentaNYL 100 mcg/2 mL IV PRN (12:30)
[2017-11-20] MEDS ORDERED: DiphenhydrAMINE 50mg/ml Inj IVP PRN (12:30)
[2017-11-20] MEDS ORDERED: Midazolam 2mg/2ml Inj IVP PRN (12:30)
[2017-11-20] MEDS ORDERED: Atropine Inj 1mg/10ml Syr IV PRN (12:30)
--- NOTE | 2017-11-20 12:35 | Anethesia Preoperative Eval ---
Anesthesia Pre-op PMH/ROS General Date of Evaluation: November 20, 2017 Time of Evaluation: 11:58 Anesthesiologist: jeff ASA Score: ASA 4 Mallampati Score Class I : Soft palate, uvula, fauces, pillars visible Class II: Soft palate, uvula, fauces visible Class III: Soft palate, base of uvula visible Class IV: Only hard plate visible Mallampati Classification: Class II Surgeon: ileana Diagnosis: dysphagia, severe malnutrition Surgical Procedure: egd/peg Anesthesia History: none Social History: smoking - nonsmoker Family History: no anesthesia problems Allergies: Coded Allergies: No Known Allergies (Unverified , 09/24/12) Medications: see eMAR Past Medical History Cardiovascular: Reports: CAD, other Pulmonary: Reports: COPD, other - aspiration pnuemonia Neurologic/Psychiatric: Reports: dementia Endocrine: Reports: DM Musculoskeletal/Integumentary: Reports: OA Anesthesia Pre-op Phys. Exam Physician Exam Last Vital Signs Date Time Temp Pulse Resp B/P (MAP) Pulse Ox O2 Delivery O2 Flow Rate FiO2 11/20/17 08:06 Room Air 11/20/17 08:06 76 18 11/20/17 08:06 96 11/20/17 08:00 96.8 137/64 96.8 11/20/17 00:00 2.0 11/19/17 19:30 28 Constitutional: NAD Cardiovascular: RRR Respiratory: CTA Gastrointestinal: S/NT/ND Airway Exam Mallampati Score: Class II MO: limited Neck: short TMD: 2fb ROM: limited Anesthesia Pre-op A/P Labs Hematology Test 11/20/17 05:50 White Blood Count 7.5 K/UL (4.8-10.8) # Red Blood Count 4.68 M/UL (4.20-5.40) Hemoglobin 14.2 G/DL (12.0-16.0) Hematocrit 41.9 % (37.0-47.0) Mean Corpuscular Volume 90 FL (80-99) Mean Corpuscular Hemoglobin 30.3 PG (27.0-31.0) Mean Corpuscular Hemoglobin Concent 33.9 G/DL (32.0-36.0) Red Cell Distribution Width 12.3 % (11.6-14.8) Platelet Count 201 K/UL (150-450) Mean Platelet Volume 6.9 FL (6.5-10.1) Neutrophils (%) (Auto) % (45.0-75.0) Lymphocytes (%) (Auto) % (20.0-45.0) Monocytes (%) (Auto) % (1.0-10.0) Eosinophils (%) (Auto) % (0.0-3.0) Basophils (%) (Auto) % (0.0-2.0) Differential Total Cells Counted 100 Neutrophils % (Manual) 90 % (45-75) H Lymphocytes % (Manual) 8 % (20-45) L Monocytes % (Manual) 2 % (1-10) Eosinophils % (Manual) 0 % (0-3) Basophils % (Manual) 0 % (0-2) Band Neutrophils 0 % (0-8) Platelet Estimate Adequate Platelet Morphology Normal Red Blood Cell Morphology Normal Coagulation Test 11/20/17 05:50 Prothrombin Time 12.3 SEC (9.30-11.50) H Prothromb Time International Ratio 1.2 (0.9-1.1) H Activated Partial Thromboplast Time 26 SEC (23-33) Chemistry Test 11/20/17 05:50 Sodium Level 142 MMOL/L (136-145) Potassium Level 3.7 MMOL/L (3.5-5.1) Chloride Level 106 MMOL/L (98-107) Carbon Dioxide Level 26 MMOL/L (21-32) Anion Gap 10 mmol/L (5-15) Blood Urea Nitrogen 22 mg/dL (7-18) H Creatinine 0.8 MG/DL (0.55-1.30) Estimat Glomerular Filtration Rate mL/min (>60) Glucose Level 188 MG/DL (74-106) H Calcium Level 8.0 MG/DL (8.5-10.1) L Risk Assessment & Plan Assessment: asa4 Plan: mac Pre-Antibiotics Drug: cefoxitin 1gram Given Within 1 Hr of Incision: Yes Time Given: 12:03 Manuela Maya MD November 20, 2017 12:35
--- NOTE | 2017-11-20 13:31 | Immediate Post-Op Evaluation ---
Immediate Post-Op Evalulation Immediate Post-Op Evalulation Procedure: egd/peg Date of Evaluation: November 20, 2017 Time of Evaluation: 12:37 IV Fluids: 200ml 0.9ns Blood Products: none Estimated Blood Loss: negligible Blood Pressure Systolic: 152 Blood Pressure Diastolic: 63 Pulse Rate: 64 Respiratory Rate: 18 O2 Sat by Pulse Oximetry: 96 Temperature (Fahrenheit): 98.6 Pain Score (1-10): 0 Nausea: No Vomiting: No Complications none Patient Status: awake, reacts, patent Hydration Status: adequate Drug: cefoxitin 1gram Given Within 1 Hr of Incision: Yes Time Given: 12:03 Manuela Maya MD November 20, 2017 13:31
--- NOTE | 2017-11-20 13:33 | 48 Hour Post Anesthesia Eval ---
Post Anesthesia Evaluation Procedure: egd/peg Date of Evaluation: November 20, 2017 Time of Evaluation: 12:39 Blood Pressure Systolic: 156 0: 62 Pulse Rate: 65 Respiratory Rate: 18 Temperature (Fahrenheit): 98.6 O2 Sat by Pulse Oximetry: 96 Airway: patent Nausea: No Vomiting: No Pain Intensity: 0 Hydration Status: adequate Cardiopulmonary Status: stable Mental Status/LOC: patient returned to baseline Post-Anesthesia Complications: none Follow-up care needed: N/A Manuela Maya MD November 20, 2017 13:33
--- NOTE | 2017-11-20 13:45 | Progress Note ---
DATE: 11/20/2017 SUBJECTIVE: The patient is an 87-year-old female patient with sepsis and dysphagia. That is why, she was admitted to [facility] where she continues to have some confusion and some disorganized thought process, worsened by the stress of her medical illness. That is why, her attending has requested daily psychiatric consultation. MENTAL STATUS EXAMINATION: This is an 87-year-old female. Appearance is disheveled. Attitude, irritable and agitated. Affect, guarded and restricted. Intellect poor. Mood depressed and anxious. Motor activity, psychomotor agitation. Attention span is poor. Orientation x2. Speech is pressured. Thought process, disorganized and illogical. Insight and judgment is poor. DIAGNOSIS: Major depression with psychotic features, rule out pseudodementia. PLAN: Treat her with Namenda 10 mg daily, Aricept 10 mg daily, and also Ativan mg every four hours IV p.r.n. anxiety and agitation. Provided 18 to 20 minutes of supportive psychotherapy. Seen and assessed at bedside. Chart reviewed and discussed staff. Miya Munguia M.D. DR: HILL JOB#: [id number] CC:
--- NOTE | 2017-11-20 14:32 | General Progress Note ---
Assessment/Plan Problem List: (1) SOB (shortness of breath) ICD Codes: R06.02 - Shortness of breath SNOMED: 135193366 (2) UTI (urinary tract infection) ICD Codes: N39.0 - Urinary tract infection, site not specified SNOMED: 87638442 (3) Weak ICD Codes: R53.1 - Weakness SNOMED: 45340854 (4) Diabetes ICD Codes: E11.9 - Type 2 diabetes mellitus without complications SNOMED: 22022444 (5) Sepsis ICD Codes: A41.9 - Sepsis, unspecified organism SNOMED: 61339805 (6) Shortness of breath ICD Codes: R06.02 - Shortness of breath SNOMED: 019986529 (7) Dementia ICD Codes: F03.90 - Unspecified dementia without behavioral disturbance SNOMED: 14030019 Status: unchanged Assessment/Plan 02 pulm tx abx ot pt diet cbc bmp am dc plan Subjective Constitutional: Reports: weakness Allergies: Coded Allergies: No Known Allergies (Unverified , 09/24/12) All Systems: reviewed and negative except above Subjective calm sleepy Objective Last 24 Hour Vital Signs Date Time Temp Pulse Resp B/P (MAP) Pulse Ox O2 Delivery O2 Flow Rate FiO2 11/20/17 13:33 209.5 65 18 96 11/20/17 13:31 209.5 64 18 96 11/20/17 13:15 97.5 18 134/55 93 Nasal Cannula 2.0 97.5 11/20/17 12:51 98.9 16 141/67 97 Nasal Cannula 3.0 98.9 11/20/17 12:40 18 160/71 96 Nasal Cannula 3.0 11/20/17 12:30 16 156/62 95 Nasal Cannula 3.0 11/20/17 12:25 98.6 18 152/63 96 Nasal Cannula 3.0 98.6 11/20/17 08:06 Room Air 11/20/17 08:06 76 18 Room Air 11/20/17 08:06 96 Room Air 11/20/17 08:00 96.8 15 137/64 93 Room Air 96.8 11/20/17 04:06 97.7 59 20 152/56 94 Room Air 97.7 11/20/17 04:00 Room Air 11/20/17 00:00 Nasal Cannula 2.0 11/19/17 23:48 97.3 64 20 133/59 95 Nasal Cannula 97.3 11/19/17 20:00 Room Air 11/19/17 19:38 97.7 67 20 132/68 92 Room Air 97.7 11/19/17 19:30 80 18 Nasal Cannula 2.0 28 11/19/17 19:30 95 Nasal Cannula 2.0 28 11/19/17 19:30 Nasal Cannula 2.0 28 11/19/17 15:38 97.0 66 17 144/77 93 97.0 Intake and Output 11/19/17 11/20/17 19:00 07:00 Intake Total 575 ml 850 ml Output Total 425 ml 850 ml Balance 150 ml 0 ml Free Water 100 ml IV Total 500 ml 600 ml Tube Feeding 75 ml 150 ml Output Urine Total 425 ml 850 ml Laboratory Tests 11/20/17 05:50: White Blood Count 7.5#, Red Blood Count 4.68, Hemoglobin 14.2, Hematocrit 41.9, Mean Corpuscular Volume 90, Mean Corpuscular Hemoglobin 30.3, Mean Corpuscular Hemoglobin Concent 33.9, Red Cell Distribution Width 12.3, Platelet Count 201, Mean Platelet Volume 6.9, Neutrophils (%) (Auto) , Lymphocytes (%) (Auto) , Monocytes (%) (Auto) , Eosinophils (%) (Auto) , Basophils (%) (Auto) , Differential Total Cells Counted 100, Neutrophils % (Manual) 90H, Lymphocytes % (Manual) 8L, Monocytes % (Manual) 2, Eosinophils % (Manual) 0, Basophils % ( Manual) 0, Band Neutrophils 0, Platelet Estimate Adequate, Platelet Morphology Normal, Red Blood Cell Morphology Normal, Prothrombin Time 12.3H, Prothromb Time International Ratio 1.2H, Activated Partial Thromboplast Time 26, Sodium Level 142, Potassium Level 3.7, Chloride Level 106, Carbon Dioxide Level 26, Anion Gap 10, Blood Urea Nitrogen 22H, Creatinine 0.8, Estimat Glomerular Filtration Rate , Glucose Level 188H, Calcium Level 8.0L Height (Feet): 5 Height (Inches): 5.00 Weight (Pounds): 108 General Appearance: lethargic EENT: normal ENT inspection Neck: normal alignment Cardiovascular: normal peripheral pulses, normal rate, regular rhythm Respiratory/Chest: chest wall non-tender, lungs clear, normal breath sounds Abdomen: normal bowel sounds, non tender, soft Extremities: normal inspection Edema: no edema noted Arm (L), no edema noted Arm (R), no edema noted Leg (L), no edema noted Leg (R), no edema noted Pedal (L), no edema noted Pedal (R), no edema noted Generalized Neurologic: motor weakness Skin: normal pigmentation, warm/dry Chase Long DO November 20, 2017 14:32
--- NOTE | 2017-11-20 15:21 | Pulmonology Progress Note ---
Assessment/Plan Problems: (1) Aspiration pneumonia (2) Sepsis (3) Dementia (4) CAD (coronary artery disease) Assessment/Plan tolerated Gtube placement looks comfortable respiratory treatment iv abx titrate fio2 to sat of 92% check cultures chest pt check electrolytes dvt prophylaxis Subjective ROS Limited/Unobtainable: No Constitutional: Reports: no symptoms HEENT: Repors: no symptoms Respiratory: Reports: no symptoms Allergies: Coded Allergies: No Known Allergies (Unverified , 09/24/12) Objective Last 24 Hour Vital Signs Date Time Temp Pulse Resp B/P (MAP) Pulse Ox O2 Delivery O2 Flow Rate FiO2 11/20/17 13:33 209.5 65 18 96 11/20/17 13:31 209.5 64 18 96 11/20/17 13:15 97.5 18 134/55 93 Nasal Cannula 2.0 97.5 11/20/17 12:51 98.9 16 141/67 97 Nasal Cannula 3.0 98.9 11/20/17 12:40 18 160/71 96 Nasal Cannula 3.0 11/20/17 12:30 16 156/62 95 Nasal Cannula 3.0 11/20/17 12:25 98.6 18 152/63 96 Nasal Cannula 3.0 98.6 11/20/17 08:06 Room Air 11/20/17 08:06 76 18 Room Air 11/20/17 08:06 96 Room Air 11/20/17 08:00 96.8 15 137/64 93 Room Air 96.8 11/20/17 04:06 97.7 59 20 152/56 94 Room Air 97.7 11/20/17 04:00 Room Air 11/20/17 00:00 Nasal Cannula 2.0 11/19/17 23:48 97.3 64 20 133/59 95 Nasal Cannula 97.3 11/19/17 20:00 Room Air 11/19/17 19:38 97.7 67 20 132/68 92 Room Air 97.7 11/19/17 19:30 80 18 Nasal Cannula 2.0 28 11/19/17 19:30 95 Nasal Cannula 2.0 28 11/19/17 19:30 Nasal Cannula 2.0 28 11/19/17 15:38 97.0 66 17 144/77 93 97.0 Intake and Output 11/19/17 11/20/17 19:00 07:00 Intake Total 575 ml 850 ml Output Total 425 ml 850 ml Balance 150 ml 0 ml Free Water 100 ml IV Total 500 ml 600 ml Tube Feeding 75 ml 150 ml Output Urine Total 425 ml 850 ml Objective General Appearance: WD/WN HEENT: normocephalic Respiratory/Chest: chest wall non-tender, lungs clear Cardiovascular: normal peripheral pulses, normal rate Abdomen: normal bowel sounds, soft, non tender Genitourinary: normal external genitalia Extremities: no clubbing Neurologic/Psychiatric: grain handler II-XII grossly normal Laboratory Tests 11/20/17 05:50: White Blood Count 7.5#, Red Blood Count 4.68, Hemoglobin 14.2, Hematocrit 41.9, Mean Corpuscular Volume 90, Mean Corpuscular Hemoglobin 30.3, Mean Corpuscular Hemoglobin Concent 33.9, Red Cell Distribution Width 12.3, Platelet Count 201, Mean Platelet Volume 6.9, Neutrophils (%) (Auto) , Lymphocytes (%) (Auto) , Monocytes (%) (Auto) , Eosinophils (%) (Auto) , Basophils (%) (Auto) , Differential Total Cells Counted 100, Neutrophils % (Manual) 90H, Lymphocytes % (Manual) 8L, Monocytes % (Manual) 2, Eosinophils % (Manual) 0, Basophils % ( Manual) 0, Band Neutrophils 0, Platelet Estimate Adequate, Platelet Morphology Normal, Red Blood Cell Morphology Normal, Prothrombin Time 12.3H, Prothromb Time International Ratio 1.2H, Activated Partial Thromboplast Time 26, Sodium Level 142, Potassium Level 3.7, Chloride Level 106, Carbon Dioxide Level 26, Anion Gap 10, Blood Urea Nitrogen 22H, Creatinine 0.8, Estimat Glomerular Filtration Rate , Glucose Level 188H, Calcium Level 8.0L Current Medications Medications (Trade) Dose Ordered Sig/Sheila Route PRN Reason Start Time Stop Time Status Last Admin Dose Admin Al Hydroxide/Mg Hydroxide (Mylanta) 15 ml Q1H PRN ORAL gi upset 11/20/17 12:30 11/20/17 20:00 Albuterol/ Ipratropium (Albuterol/ Ipratropium) 3 ml Q4H PRN HHN dyspnea 11/15/17 21:00 11/20/17 20:59 Atropine Sulfate (Atropine) 0.5 mg Q5M PRN IV HR less than 45 BPM 11/20/17 12:30 11/20/17 20:00 Cefoxitin Sodium 1 gm/Dextrose 55 ml @ 110 mls/hr ONCE PRN IV HEAT TREATING BLUER TO GI LAB 11/19/17 12:00 11/26/17 11:59 Dextrose (Dextrose 50%) STAT PRN IV Hypoglycemia 11/15/17 20:00 12/13/17 19:59 Dextrose (Dextrose 50%) STAT PRN IV Hypoglycemia 11/15/17 20:45 12/13/17 20:44 Dextrose/ Electrolytes 1,000 ml @ 50 mls/hr Q20H IV 11/19/17 10:30 12/19/17 10:29 11/20/17 05:44 Diphenhydramine HCl (Benadryl) 25 mg Q15M PRN IVP Itching 11/20/17 12:30 11/20/17 20:00 Donepezil HCl (Aricept) 10 mg DAILY ORAL 11/17/17 09:00 12/16/17 08:59 11/18/17 09:08 Fentanyl Citrate (Sublimaze 100 mcg/2 mL) 25 mcg Q10M PRN IV Moderate Pain (Pain Scale 4-6) 11/20/17 12:30 11/20/17 20:00 Heparin Sodium (Porcine) (Heparin 5000 units/ml) 5,000 units EVERY 12 HOURS SUBQ 11/16/17 21:21 12/16/17 21:20 11/19/17 20:25 Hydralazine HCl (Apresoline) 5 mg Q30M PRN IV SBP>160 /DBP>90 11/20/17 12:30 11/20/17 20:00 Ketorolac Tromethamine (Toradol 30mg) 30 mg Q8H PRN IV moderate pain 4-6 11/15/17 20:00 11/20/17 19:59 Lorazepam (Ativan 2mg/ml 1ml) 0.5 mg Q4H PRN IV For Anxiety 11/15/17 20:45 11/20/17 20:44 Memantine (Namenda) 10 mg DAILY ORAL 11/17/17 09:00 12/16/17 08:59 11/18/17 09:07 Methylprednisolone Sodium Succinate (Solu-MEDROL) 60 mg Q6H IV 11/16/17 14:30 12/16/17 14:29 11/20/17 14:34 Midazolam HCl (Versed 2mg/2ml vial) 1 mg Q15M PRN IVP For Anxiety 11/20/17 12:30 11/20/17 20:00 Nitroglycerin (Ntg) 0.4 mg Q5M X 3 DOSES PRN SL Prn Chest Pain 11/15/17 19:00 12/13/17 20:44 Ondansetron HCl (Zofran) 4 mg Q1H PRN IVP Nausea & Vomiting 11/20/17 12:30 11/20/17 20:00 Ondansetron HCl (Zofran) 4 mg Q6H PRN IVP Nausea & Vomiting 11/15/17 20:45 12/13/17 20:44 Promethazine HCl/ Codeine (Phenergan with Codeine) 5 ml Q6H PRN ORAL cough 11/16/17 00:00 12/16/17 00:00 Temazepam (Restoril) 15 mg HSPRN PRN ORAL Insomnia 11/15/17 20:45 11/20/17 20:44 Warren Lentz MD November 20, 2017 15:21
--- NOTE | 2017-11-20 16:30 | Procedure Note ---
PROCEDURE: Upper endoscopy with percutaneous endoscopic gastrostomy placement. SURGEON: Ivan Mahajan M.D. INSTRUMENT: Olympus adult flexible upper endoscope and colonoscope. INDICATION: Dysphagia, failure to thrive. REASON FOR PROCEDURE: The procedure, risks, benefits, and possible consequences, including hemorrhage, aspiration, perforation and infection, and alternative treatments, were explained to the patient/legal guardian by Dr. Ivan Mahajan and the patient/legal guardian understood and accepted these risks. PROCEDURE: After informed consent was obtained, the patient was adequately sedated, Olympus upper endoscope was advanced from mouth into the stomach. The patient had diffuse gastritis, more prominent in the antrum. Then under endoscopic guidance, under sterile condition, a 20-Latvian pull type of G-tube was successfully placed in epigastric area. The distance from the tip of the tube to skin was about 3 cm in size. The patient tolerated the procedure very well without any complication. SUMMARY FINDINGS: 1. Gastritis. 2. Status post successful PEG placement. RECOMMENDATIONS: 1. Abdominal binder. 2. Elevate the head of the bed at all times. 3. The G-tube flush. 4. G-tube care. 5. Start tube feeding later today. The patient received dose of antibiotics prior to this procedure. I want to thank, Dr. Chase Long for this kind referral. Ivan Mahajan M.D. DR: JM JOB#: [id number] CC: Chase Long D.O.
--- NOTE | 2017-11-20 18:40 | Infectious Diseases Prog Note ---
Assessment/Plan Assessment/Plan Assessment: COPD exacerbation- ?PNA, no obvious infiltrates on CXR -CXR: Fullness of the upper mediastinum. This may be related to the marked abnormalities of the manubrium and right clavicle seen on prior CT of the chest. This does however the more pronounced compared to the prior exam. The possibility of mass or other etiologies not entirely excluded. Recommend further evaluation with CT of the chest with contrast. Patchy likely left basilar atelectasis. -influenza sc neg -sp cx : nl princess and Lexus Fever, SP leukocytosis, sp -u/a wbc 2/4, nit neg, leuk +1 -Bcx NTD COPD HLD OA Dementia CAD s/p CABG Plan: Monitor pt off of AB Rx - 11/18 SP PO Augumentin # 5 (abx d# ) -Levaquin not done due to prolong QTc and concomitant QTc prolonging med -11/14 SP Zosyn 2 -11/13 SP IV Vanco x1 -Monitor CBC/BMP, temperatures -aspiration precautions PEG cancelled today, no consent Subjective Allergies: Coded Allergies: No Known Allergies (Unverified , 09/24/12) Subjective comfortable Afebrile Objective Vital Signs Last 24 Hour Vital Signs Date Time Temp Pulse Resp B/P (MAP) Pulse Ox O2 Delivery O2 Flow Rate FiO2 11/20/17 16:00 97.9 73 18 131/88 93 97.9 11/20/17 13:33 209.5 65 18 96 11/20/17 13:31 209.5 64 18 96 11/20/17 13:15 97.5 18 134/55 93 Nasal Cannula 2.0 97.5 11/20/17 12:51 98.9 16 141/67 97 Nasal Cannula 3.0 98.9 11/20/17 12:40 18 160/71 96 Nasal Cannula 3.0 11/20/17 12:30 16 156/62 95 Nasal Cannula 3.0 11/20/17 12:25 98.6 18 152/63 96 Nasal Cannula 3.0 98.6 11/20/17 08:06 Room Air 11/20/17 08:06 76 18 Room Air 11/20/17 08:06 96 Room Air 11/20/17 08:00 96.8 15 137/64 93 Room Air 96.8 11/20/17 04:06 97.7 59 20 152/56 94 Room Air 97.7 11/20/17 04:00 Room Air 11/20/17 00:00 Nasal Cannula 2.0 11/19/17 23:48 97.3 64 20 133/59 95 Nasal Cannula 97.3 11/19/17 20:00 Room Air 11/19/17 19:38 97.7 67 20 132/68 92 Room Air 97.7 11/19/17 19:30 80 18 Nasal Cannula 2.0 28 11/19/17 19:30 95 Nasal Cannula 2.0 28 11/19/17 19:30 Nasal Cannula 2.0 28 Height (Feet): 5 Height (Inches): 5.00 Weight (Pounds): 108 HEENT: anicteric Respiratory/Chest: normal breath sounds Cardiovascular: normal rate Abdomen: soft, non tender Laboratory Tests Test 11/20/17 05:50 White Blood Count 7.5 K/UL (4.8-10.8) # Red Blood Count 4.68 M/UL (4.20-5.40) Hemoglobin 14.2 G/DL (12.0-16.0) Hematocrit 41.9 % (37.0-47.0) Mean Corpuscular Volume 90 FL (80-99) Mean Corpuscular Hemoglobin 30.3 PG (27.0-31.0) Mean Corpuscular Hemoglobin Concent 33.9 G/DL (32.0-36.0) Red Cell Distribution Width 12.3 % (11.6-14.8) Platelet Count 201 K/UL (150-450) Mean Platelet Volume 6.9 FL (6.5-10.1) Neutrophils (%) (Auto) % (45.0-75.0) Lymphocytes (%) (Auto) % (20.0-45.0) Monocytes (%) (Auto) % (1.0-10.0) Eosinophils (%) (Auto) % (0.0-3.0) Basophils (%) (Auto) % (0.0-2.0) Differential Total Cells Counted 100 Neutrophils % (Manual) 90 % (45-75) H Lymphocytes % (Manual) 8 % (20-45) L Monocytes % (Manual) 2 % (1-10) Eosinophils % (Manual) 0 % (0-3) Basophils % (Manual) 0 % (0-2) Band Neutrophils 0 % (0-8) Platelet Estimate Adequate Platelet Morphology Normal Red Blood Cell Morphology Normal Prothrombin Time 12.3 SEC (9.30-11.50) H Prothromb Time International Ratio 1.2 (0.9-1.1) H Activated Partial Thromboplast Time 26 SEC (23-33) Sodium Level 142 MMOL/L (136-145) Potassium Level 3.7 MMOL/L (3.5-5.1) Chloride Level 106 MMOL/L (98-107) Carbon Dioxide Level 26 MMOL/L (21-32) Anion Gap 10 mmol/L (5-15) Blood Urea Nitrogen 22 mg/dL (7-18) H Creatinine 0.8 MG/DL (0.55-1.30) Estimat Glomerular Filtration Rate mL/min (>60) Glucose Level 188 MG/DL (74-106) H Calcium Level 8.0 MG/DL (8.5-10.1) L Current Medications Medications (Trade) Dose Ordered Sig/Sheila Route PRN Reason Start Time Stop Time Status Last Admin Dose Admin Al Hydroxide/Mg Hydroxide (Mylanta) 15 ml Q1H PRN ORAL gi upset 11/20/17 12:30 11/20/17 20:00 Albuterol/ Ipratropium (Albuterol/ Ipratropium) 3 ml Q4H PRN HHN dyspnea 11/15/17 21:00 11/20/17 20:59 Atropine Sulfate (Atropine) 0.5 mg Q5M PRN IV HR less than 45 BPM 11/20/17 12:30 11/20/17 20:00 Cefoxitin Sodium 1 gm/Dextrose 55 ml @ 110 mls/hr ONCE PRN IV HAND BOOKBINDER TO GI LAB 11/19/17 12:00 11/26/17 11:59 Dextrose (Dextrose 50%) STAT PRN IV Hypoglycemia 11/15/17 20:00 12/13/17 19:59 Dextrose (Dextrose 50%) STAT PRN IV Hypoglycemia 11/15/17 20:45 12/13/17 20:44 Dextrose/ Electrolytes 1,000 ml @ 50 mls/hr Q20H IV 11/19/17 10:30 12/19/17 10:29 11/20/17 05:44 Diphenhydramine HCl (Benadryl) 25 mg Q15M PRN IVP Itching 11/20/17 12:30 11/20/17 20:00 Donepezil HCl (Aricept) 10 mg DAILY ORAL 11/17/17 09:00 12/16/17 08:59 11/18/17 09:08 Fentanyl Citrate (Sublimaze 100 mcg/2 mL) 25 mcg Q10M PRN IV Moderate Pain (Pain Scale 4-6) 11/20/17 12:30 11/20/17 20:00 Heparin Sodium (Porcine) (Heparin 5000 units/ml) 5,000 units EVERY 12 HOURS SUBQ 11/16/17 21:21 12/16/17 21:20 11/19/17 20:25 Hydralazine HCl (Apresoline) 5 mg Q30M PRN IV SBP>160 /DBP>90 11/20/17 12:30 11/20/17 20:00 Ketorolac Tromethamine (Toradol 30mg) 30 mg Q8H PRN IV moderate pain 4-6 11/15/17 20:00 11/20/17 19:59 Lorazepam (Ativan 2mg/ml 1ml) 0.5 mg Q4H PRN IV For Anxiety 11/15/17 20:45 11/20/17 20:44 Memantine (Namenda) 10 mg DAILY ORAL 11/17/17 09:00 12/16/17 08:59 11/18/17 09:07 Methylprednisolone Sodium Succinate (Solu-MEDROL) 60 mg Q6H IV 11/16/17 14:30 12/16/17 14:29 11/20/17 14:34 Midazolam HCl (Versed 2mg/2ml vial) 1 mg Q15M PRN IVP For Anxiety 11/20/17 12:30 11/20/17 20:00 Nitroglycerin (Ntg) 0.4 mg Q5M X 3 DOSES PRN SL Prn Chest Pain 11/15/17 19:00 12/13/17 20:44 Ondansetron HCl (Zofran) 4 mg Q1H PRN IVP Nausea & Vomiting 11/20/17 12:30 11/20/17 20:00 Ondansetron HCl (Zofran) 4 mg Q6H PRN IVP Nausea & Vomiting 11/15/17 20:45 12/13/17 20:44 Promethazine HCl/ Codeine (Phenergan with Codeine) 5 ml Q6H PRN ORAL cough 11/16/17 00:00 12/16/17 00:00 Temazepam (Restoril) 15 mg HSPRN PRN ORAL Insomnia 11/15/17 20:45 11/20/17 20:44 Colin Chapa MD November 20, 2017 18:39
[2017-11-21] VITALS: BP 141/65
[2017-11-21] MEDS: D5 1/2NS w/KCl 20mEq 1,000 ML IV SCH (02:26)
[2017-11-21] MEDS: Solu-MEDROL 125mg Inj IV SCH ×3 (02:26→14:28)
[2017-11-21 03:41] VITALS: BP 161/57
[2017-11-21 04:02] VITALS: BP 136/44
[2017-11-21 08:00] VITALS: BP 111/60
[2017-11-21 08:20] LABS: HEMOGLOBIN 13.3 G/DL (12.0-16.0); MEAN CORPUSCULAR VOLUME 91 FL (80-99); PLATELET COUNT 213 K/UL (150-450); RED BLOOD COUNT 4.41 M/UL (4.20-5.40); RED CELL DISTRIBUTION WIDTH 12.4 % (11.6-14.8)
[2017-11-21] MEDS: Donepezil 10mg tab ORAL SCH (08:27)
[2017-11-21] MEDS: Memantine 10mg tab ORAL SCH (08:27)
[2017-11-21] MEDS: Heparin 5000 units/ml inj SUBQ SCH (08:28)
[2017-11-21 08:30] LABS: ANION GAP 7 mmol/L (5-15); BLOOD UREA NITROGEN 19 mg/dL (7-18); CALCIUM 7.7 MG/DL (8.5-10.1); CARBON DIOXIDE 28 MMOL/L (21-32); CHLORIDE 107 MMOL/L (98-107); CREATININE 0.9 MG/DL (0.55-1.30); POTASSIUM 3.8 MMOL/L (3.5-5.1); SODIUM 142 MMOL/L (136-145)
--- NOTE | 2017-11-21 11:51 | GI Progress Note ---
Assessment/Plan Problems: (1) Encounter for PEG (percutaneous endoscopic gastrostomy) ICD Codes: Z43.1 - Encounter for attention to gastrostomy SNOMED: 801479405, 562336066 (2) Severe malnutrition ICD Codes: E43 - Unspecified severe protein-calorie malnutrition SNOMED: 56336987 (3) Dysphagia ICD Codes: R13.10 - Dysphagia, unspecified SNOMED: 79579103, 113643219 (4) Dehydration ICD Codes: E86.0 - Dehydration SNOMED: 29596785 (5) Weak ICD Codes: R53.1 - Weakness SNOMED: 53207024 Status: stable Status Narrative Discussed with Dr. Mahajan. Assessment/Plan SUMMARY FINDINGS: 1. Gastritis. 2. Status post successful PEG placement. RECOMMENDATIONS: okay for DC per GI standpoint 1. Abdominal binder. 2. Elevate the head of the bed at all times. 3. The G-tube flush. 4. G-tube care. 5. Start tube feeding later today. The patient was seen and examined at bedside and all new and available data was reviewed in the patients chart. I agree with the above findings, impression and plan. (Patient seen earlier today. Signature stamp does not reflect patient encounter time.). - Issa Mahajan MD Subjective Subjective limited Objective Last 24 Hour Vital Signs Date Time Temp Pulse Resp B/P (MAP) Pulse Ox O2 Delivery O2 Flow Rate FiO2 11/21/17 08:00 97.5 84 20 111/60 95 97.5 11/21/17 08:00 Nasal Cannula 2.0 11/21/17 06:45 Nasal Cannula 2.0 28 11/21/17 06:45 64 18 Room Air 11/21/17 06:45 98 Nasal Cannula 2.0 28 11/21/17 04:02 59 136/44 11/21/17 04:00 Nasal Cannula 2.0 11/21/17 03:41 97.5 62 16 161/57 98 97.5 11/21/17 00:00 Nasal Cannula 2.0 11/21/17 00:00 97.3 66 16 141/65 99 97.3 11/20/17 20:00 Nasal Cannula 2.0 11/20/17 20:00 97.7 65 16 149/44 95 97.7 11/20/17 19:03 Room Air 21 11/20/17 19:03 71 18 Room Air 11/20/17 19:03 95 Room Air 21 11/20/17 16:00 97.9 73 18 131/88 93 97.9 11/20/17 13:33 209.5 65 18 96 11/20/17 13:31 209.5 64 18 96 11/20/17 13:15 97.5 18 134/55 93 Nasal Cannula 2.0 97.5 11/20/17 12:51 98.9 16 141/67 97 Nasal Cannula 3.0 98.9 11/20/17 12:40 18 160/71 96 Nasal Cannula 3.0 11/20/17 12:30 16 156/62 95 Nasal Cannula 3.0 11/20/17 12:25 98.6 18 152/63 96 Nasal Cannula 3.0 98.6 Intake and Output 11/20/17 11/21/17 19:00 07:00 Intake Total 320 ml 960 ml Balance 320 ml 960 ml Free Water 100 ml IV Total 300 ml 600 ml Tube Feeding 20 ml 260 ml Laboratory Tests Test 11/21/17 05:15 White Blood Count 9.0 K/UL (4.8-10.8) Red Blood Count 4.41 M/UL (4.20-5.40) Hemoglobin 13.3 G/DL (12.0-16.0) Hematocrit 40.0 % (37.0-47.0) Mean Corpuscular Volume 91 FL (80-99) Mean Corpuscular Hemoglobin 30.1 PG (27.0-31.0) Mean Corpuscular Hemoglobin Concent 33.1 G/DL (32.0-36.0) Red Cell Distribution Width 12.4 % (11.6-14.8) Platelet Count 213 K/UL (150-450) Mean Platelet Volume 6.9 FL (6.5-10.1) Neutrophils (%) (Auto) % (45.0-75.0) Lymphocytes (%) (Auto) % (20.0-45.0) Monocytes (%) (Auto) % (1.0-10.0) Eosinophils (%) (Auto) % (0.0-3.0) Basophils (%) (Auto) % (0.0-2.0) Neutrophils % (Manual) Pending Lymphocytes % (Manual) Pending Platelet Estimate Pending Platelet Morphology Pending Sodium Level 142 MMOL/L (136-145) Potassium Level 3.8 MMOL/L (3.5-5.1) Chloride Level 107 MMOL/L (98-107) Carbon Dioxide Level 28 MMOL/L (21-32) Anion Gap 7 mmol/L (5-15) Blood Urea Nitrogen 19 mg/dL (7-18) H Creatinine 0.9 MG/DL (0.55-1.30) Estimat Glomerular Filtration Rate mL/min (>60) Glucose Level 228 MG/DL (74-106) H Calcium Level 7.7 MG/DL (8.5-10.1) L Height (Feet): 5 Height (Inches): 5.00 Weight (Pounds): 108 General Appearance: no apparent distress, alert Cardiovascular: normal rate Respiratory/Chest: no respiratory distress Abdominal Exam: site - c/d/i Leonor Ashley NP November 21, 2017 11:51 Ivan Mahajan MD November 25, 2017 11:47
[2017-11-21 12:00] VITALS: BP 131/43
--- NOTE | 2017-11-21 13:44 | Infectious Diseases Prog Note ---
Assessment/Plan Assessment/Plan Assessment: COPD exacerbation- ?PNA, no obvious infiltrates on CXR -CXR: Fullness of the upper mediastinum. This may be related to the marked abnormalities of the manubrium and right clavicle seen on prior CT of the chest. This does however the more pronounced compared to the prior exam. The possibility of mass or other etiologies not entirely excluded. Recommend further evaluation with CT of the chest with contrast. Patchy likely left basilar atelectasis. -influenza sc neg -sp cx : nl princess and Lexus Fever, SP leukocytosis, sp -u/a wbc 2/4, nit neg, leuk +1 -Bcx NTD COPD HLD OA Dementia CAD s/p CABG Plan: Monitor pt off of AB Rx - 11/18 SP PO Augumentin # 5 (abx d# ) -Levaquin not done due to prolong QTc and concomitant QTc prolonging med -11/14 SP Zosyn 2 -11/13 SP IV Vanco x1 -Monitor CBC/BMP, temperatures -aspiration precautions PEG cancelled today, no consent Subjective Allergies: Coded Allergies: No Known Allergies (Unverified , 09/24/12) Subjective comfortable Afebrile Objective Vital Signs Last 24 Hour Vital Signs Date Time Temp Pulse Resp B/P (MAP) Pulse Ox O2 Delivery O2 Flow Rate FiO2 11/21/17 12:00 97.7 62 20 131/43 96 97.7 11/21/17 08:00 97.5 84 20 111/60 95 97.5 11/21/17 08:00 Nasal Cannula 2.0 11/21/17 06:45 Nasal Cannula 2.0 28 11/21/17 06:45 64 18 Room Air 11/21/17 06:45 98 Nasal Cannula 2.0 28 11/21/17 04:02 59 136/44 11/21/17 04:00 Nasal Cannula 2.0 11/21/17 03:41 97.5 62 16 161/57 98 97.5 11/21/17 00:00 Nasal Cannula 2.0 11/21/17 00:00 97.3 66 16 141/65 99 97.3 11/20/17 20:00 Nasal Cannula 2.0 11/20/17 20:00 97.7 65 16 149/44 95 97.7 11/20/17 19:03 Room Air 21 11/20/17 19:03 71 18 Room Air 5/16/18 19:03 95 Room Air 21 11/20/17 16:00 97.9 73 18 131/88 93 97.9 Height (Feet): 5 Height (Inches): 5.00 Weight (Pounds): 108 HEENT: anicteric Respiratory/Chest: no respiratory distress Cardiovascular: regularly irregular Abdomen: no organomegaly Laboratory Tests Test 11/21/17 05:15 White Blood Count 9.0 K/UL (4.8-10.8) Red Blood Count 4.41 M/UL (4.20-5.40) Hemoglobin 13.3 G/DL (12.0-16.0) Hematocrit 40.0 % (37.0-47.0) Mean Corpuscular Volume 91 FL (80-99) Mean Corpuscular Hemoglobin 30.1 PG (27.0-31.0) Mean Corpuscular Hemoglobin Concent 33.1 G/DL (32.0-36.0) Red Cell Distribution Width 12.4 % (11.6-14.8) Platelet Count 213 K/UL (150-450) Mean Platelet Volume 6.9 FL (6.5-10.1) Neutrophils (%) (Auto) % (45.0-75.0) Lymphocytes (%) (Auto) % (20.0-45.0) Monocytes (%) (Auto) % (1.0-10.0) Eosinophils (%) (Auto) % (0.0-3.0) Basophils (%) (Auto) % (0.0-2.0) Differential Total Cells Counted 100 Neutrophils % (Manual) 93 % (45-75) H Lymphocytes % (Manual) 5 % (20-45) L Monocytes % (Manual) 2 % (1-10) Eosinophils % (Manual) 0 % (0-3) Basophils % (Manual) 0 % (0-2) Band Neutrophils 0 % (0-8) Platelet Estimate Adequate Platelet Morphology Normal Red Blood Cell Morphology Normal Sodium Level 142 MMOL/L (136-145) Potassium Level 3.8 MMOL/L (3.5-5.1) Chloride Level 107 MMOL/L (98-107) Carbon Dioxide Level 28 MMOL/L (21-32) Anion Gap 7 mmol/L (5-15) Blood Urea Nitrogen 19 mg/dL (7-18) H Creatinine 0.9 MG/DL (0.55-1.30) Estimat Glomerular Filtration Rate mL/min (>60) Glucose Level 228 MG/DL (74-106) H Calcium Level 7.7 MG/DL (8.5-10.1) L Current Medications Medications (Trade) Dose Ordered Sig/Sheila Route PRN Reason Start Time Stop Time Status Last Admin Dose Admin Cefoxitin Sodium 1 gm/Dextrose 55 ml @ 110 mls/hr ONCE PRN IV NATUROPATH TO GI LAB 11/19/17 12:00 11/26/17 11:59 Dextrose (Dextrose 50%) STAT PRN IV Hypoglycemia 11/15/17 20:00 12/13/17 19:59 Dextrose (Dextrose 50%) STAT PRN IV Hypoglycemia 11/15/17 20:45 12/13/17 20:44 Dextrose/ Electrolytes 1,000 ml @ 50 mls/hr Q20H IV 11/19/17 10:30 12/19/17 10:29 11/21/17 02:26 Donepezil HCl (Aricept) 10 mg DAILY ORAL 11/17/17 09:00 12/16/17 08:59 11/21/17 08:27 Heparin Sodium (Porcine) (Heparin 5000 units/ml) 5,000 units EVERY 12 HOURS SUBQ 11/16/17 21:21 12/16/17 21:20 11/21/17 08:28 Memantine (Namenda) 10 mg DAILY ORAL 11/17/17 09:00 12/16/17 08:59 11/21/17 08:27 Methylprednisolone Sodium Succinate (Solu-MEDROL) 60 mg Q6H IV 11/16/17 14:30 12/16/17 14:29 11/21/17 08:23 Nitroglycerin (Ntg) 0.4 mg Q5M X 3 DOSES PRN SL Prn Chest Pain 11/15/17 19:00 12/13/17 20:44 Ondansetron HCl (Zofran) 4 mg Q6H PRN IVP Nausea & Vomiting 11/15/17 20:45 12/13/17 20:44 Promethazine HCl/ Codeine (Phenergan with Codeine) 5 ml Q6H PRN ORAL cough 11/16/17 00:00 12/16/17 00:00 Colin Chapa MD November 21, 2017 13:44
--- NOTE | 2017-11-21 13:45 | Consultation ---
DATE OF CONSULTATION: DATE OF CONSULTATION: 11/21/2017 HISTORY OF PRESENT ILLNESS: This is an 87-year-old female patient. This is a female patient who came into the hospital with sepsis and dysphagia. She also has altered mental status and confusion. Cognition has declined below baseline with mood lability. That is why, she does require daily psychiatric consultation and her attending has requested daily psychiatric consultation at this time. Also, she has some disorganized thought process and confusion as well. MENTAL STATUS EXAMINATION: This is an 87-year-old female. Appearance is disheveled. Attitude irritable and agitated. Affect guarded and restricted. Thought poor. Mood depressed and anxious. Motor activity, psychomotor agitation. Attention span is poor. Orientation x2. Speech is pressured. Thought process, disorganized and illogical. Thought content, auditory hallucinations and paranoid delusions. Insight and judgment is poor. DIAGNOSIS: Major depressive disorder with psychotic features, rule out pseudodementia. PLAN: Plan for this patient is to treat her with a psychotropic med regimen consisting of Namenda 10 mg by mouth daily as well as Aricept 10 mg daily and in addition to that an 18 to 20 minutes of supportive psychotherapy provided. Chart is reviewed and discussed with staff and she is seen and assessed at bedside. Miya Munguia M.D. DR: NICOLE JOB#: [id number] CC:
--- NOTE | 2017-11-21 14:19 | Pulmonology Progress Note ---
Assessment/Plan Problems: (1) Aspiration pneumonia (2) Sepsis (3) Dementia (4) CAD (coronary artery disease) Assessment/Plan getting better tolerated Gtube placement looks comfortable respiratory treatment titrate fio2 to sat of 92% check electrolytes dvt prophylaxis Subjective ROS Limited/Unobtainable: No Constitutional: Reports: no symptoms HEENT: Repors: no symptoms Respiratory: Reports: no symptoms Allergies: Coded Allergies: No Known Allergies (Unverified , 09/24/12) Objective Last 24 Hour Vital Signs Date Time Temp Pulse Resp B/P (MAP) Pulse Ox O2 Delivery O2 Flow Rate FiO2 11/21/17 12:00 97.7 62 20 131/43 96 97.7 11/21/17 08:00 97.5 84 20 111/60 95 97.5 11/21/17 08:00 Nasal Cannula 2.0 11/21/17 06:45 Nasal Cannula 2.0 28 11/21/17 06:45 64 18 Room Air 11/21/17 06:45 98 Nasal Cannula 2.0 28 11/21/17 04:02 59 136/44 11/21/17 04:00 Nasal Cannula 2.0 11/21/17 03:41 97.5 62 16 161/57 98 97.5 11/21/17 00:00 Nasal Cannula 2.0 11/21/17 00:00 97.3 66 16 141/65 99 97.3 11/20/17 20:00 Nasal Cannula 2.0 11/20/17 20:00 97.7 65 16 149/44 95 97.7 11/20/17 19:03 Room Air 21 11/20/17 19:03 71 18 Room Air 11/20/17 19:03 95 Room Air 21 11/20/17 16:00 97.9 73 18 131/88 93 97.9 Intake and Output 11/20/17 11/21/17 19:00 07:00 Intake Total 320 ml 960 ml Balance 320 ml 960 ml Free Water 100 ml IV Total 300 ml 600 ml Tube Feeding 20 ml 260 ml Objective General Appearance: WD/WN HEENT: normocephalic Respiratory/Chest: chest wall non-tender, lungs clear Cardiovascular: normal peripheral pulses, normal rate Abdomen: normal bowel sounds, soft, non tender Genitourinary: normal external genitalia Extremities: no clubbing 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 grossly normal Laboratory Tests 11/21/17 05:15: White Blood Count 9.0, Red Blood Count 4.41, Hemoglobin 13.3, Hematocrit 40.0, Mean Corpuscular Volume 91, Mean Corpuscular Hemoglobin 30.1, Mean Corpuscular Hemoglobin Concent 33.1, Red Cell Distribution Width 12.4, Platelet Count 213, Mean Platelet Volume 6.9, Neutrophils (%) (Auto) , Lymphocytes (%) (Auto) , Monocytes (%) (Auto) , Eosinophils (%) (Auto) , Basophils (%) (Auto) , Differential Total Cells Counted 100, Neutrophils % (Manual) 93H, Lymphocytes % (Manual) 5L, Monocytes % (Manual) 2, Eosinophils % (Manual) 0, Basophils % ( Manual) 0, Band Neutrophils 0, Platelet Estimate Adequate, Platelet Morphology Normal, Red Blood Cell Morphology Normal, Sodium Level 142, Potassium Level 3.8 , Chloride Level 107, Carbon Dioxide Level 28, Anion Gap 7, Blood Urea Nitrogen 19H, Creatinine 0.9, Estimat Glomerular Filtration Rate , Glucose Level 228H, Calcium Level 7.7L Current Medications Medications (Trade) Dose Ordered Sig/Sheila Route PRN Reason Start Time Stop Time Status Last Admin Dose Admin Cefoxitin Sodium 1 gm/Dextrose 55 ml @ 110 mls/hr ONCE PRN IV LENS GENERATOR TO GI LAB 11/19/17 12:00 11/26/17 11:59 Dextrose (Dextrose 50%) STAT PRN IV Hypoglycemia 11/15/17 20:00 12/13/17 19:59 Dextrose (Dextrose 50%) STAT PRN IV Hypoglycemia 11/15/17 20:45 12/13/17 20:44 Dextrose/ Electrolytes 1,000 ml @ 50 mls/hr Q20H IV 11/19/17 10:30 12/19/17 10:29 11/21/17 02:26 Donepezil HCl (Aricept) 10 mg DAILY ORAL 11/17/17 09:00 12/16/17 08:59 11/21/17 08:27 Heparin Sodium (Porcine) (Heparin 5000 units/ml) 5,000 units EVERY 12 HOURS SUBQ 11/16/17 21:21 12/16/17 21:20 11/21/17 08:28 Memantine (Namenda) 10 mg DAILY ORAL 11/17/17 09:00 12/16/17 08:59 11/21/17 08:27 Methylprednisolone Sodium Succinate (Solu-MEDROL) 60 mg Q6H IV 11/16/17 14:30 12/16/17 14:29 11/21/17 08:23 Nitroglycerin (Ntg) 0.4 mg Q5M X 3 DOSES PRN SL Prn Chest Pain 11/15/17 19:00 12/13/17 20:44 Ondansetron HCl (Zofran) 4 mg Q6H PRN IVP Nausea & Vomiting 11/15/17 20:45 12/13/17 20:44 Promethazine HCl/ Codeine (Phenergan with Codeine) 5 ml Q6H PRN ORAL cough 11/16/17 00:00 12/16/17 00:00 Warren Lentz MD November 21, 2017 14:19
--- NOTE | 2017-11-21 15:35 | General Progress Note ---
Assessment/Plan Problem List: (1) SOB (shortness of breath) ICD Codes: R06.02 - Shortness of breath SNOMED: 727447822 (2) UTI (urinary tract infection) ICD Codes: N39.0 - Urinary tract infection, site not specified SNOMED: 00426365 (3) Weak ICD Codes: R53.1 - Weakness SNOMED: 44694006 (4) Diabetes ICD Codes: E11.9 - Type 2 diabetes mellitus without complications SNOMED: 57512712 (5) Sepsis ICD Codes: A41.9 - Sepsis, unspecified organism SNOMED: 66603881 (6) Shortness of breath ICD Codes: R06.02 - Shortness of breath SNOMED: 825561842 (7) Dementia ICD Codes: F03.90 - Unspecified dementia without behavioral disturbance SNOMED: 12576610 Status: progressing, tolerating diet Assessment/Plan 02 pulm tx abx ot pt diet cbc bmp am dc plan if clear Subjective Constitutional: Reports: weakness Allergies: Coded Allergies: No Known Allergies (Unverified , 09/24/12) All Systems: reviewed and negative except above Subjective o2nc calm sleepy Objective Last 24 Hour Vital Signs Date Time Temp Pulse Resp B/P (MAP) Pulse Ox O2 Delivery O2 Flow Rate FiO2 11/21/17 12:00 97.7 62 20 131/43 96 97.7 11/21/17 08:00 97.5 84 20 111/60 95 97.5 11/21/17 08:00 Nasal Cannula 2.0 11/21/17 06:45 Nasal Cannula 2.0 28 11/21/17 06:45 64 18 Room Air 11/21/17 06:45 98 Nasal Cannula 2.0 28 11/21/17 04:02 59 136/44 11/21/17 04:00 Nasal Cannula 2.0 11/21/17 03:41 97.5 62 16 161/57 98 97.5 11/21/17 00:00 Nasal Cannula 2.0 11/21/17 00:00 97.3 66 16 141/65 99 97.3 11/20/17 20:00 Nasal Cannula 2.0 11/20/17 20:00 97.7 65 16 149/44 95 97.7 11/20/17 19:03 Room Air 21 11/20/17 19:03 71 18 Room Air 11/20/17 19:03 95 Room Air 21 11/20/17 16:00 97.9 73 18 131/88 93 97.9 Intake and Output 11/20/17 11/21/17 19:00 07:00 Intake Total 320 ml 1000 ml Balance 320 ml 1000 ml Free Water 100 ml IV Total 300 ml 600 ml Tube Feeding 20 ml 300 ml Laboratory Tests 11/21/17 05:15: White Blood Count 9.0, Red Blood Count 4.41, Hemoglobin 13.3, Hematocrit 40.0, Mean Corpuscular Volume 91, Mean Corpuscular Hemoglobin 30.1, Mean Corpuscular Hemoglobin Concent 33.1, Red Cell Distribution Width 12.4, Platelet Count 213, Mean Platelet Volume 6.9, Neutrophils (%) (Auto) , Lymphocytes (%) (Auto) , Monocytes (%) (Auto) , Eosinophils (%) (Auto) , Basophils (%) (Auto) , Differential Total Cells Counted 100, Neutrophils % (Manual) 93H, Lymphocytes % (Manual) 5L, Monocytes % (Manual) 2, Eosinophils % (Manual) 0, Basophils % ( Manual) 0, Band Neutrophils 0, Platelet Estimate Adequate, Platelet Morphology Normal, Red Blood Cell Morphology Normal, Sodium Level 142, Potassium Level 3.8 , Chloride Level 107, Carbon Dioxide Level 28, Anion Gap 7, Blood Urea Nitrogen 19H, Creatinine 0.9, Estimat Glomerular Filtration Rate , Glucose Level 228H, Calcium Level 7.7L Height (Feet): 5 Height (Inches): 5.00 Weight (Pounds): 108 General Appearance: lethargic EENT: normal ENT inspection Neck: normal alignment Cardiovascular: normal peripheral pulses, normal rate, regular rhythm Respiratory/Chest: chest wall non-tender, lungs clear, normal breath sounds Abdomen: normal bowel sounds, non tender, soft Extremities: normal inspection Edema: no edema noted Arm (L), no edema noted Arm (R), no edema noted Leg (L), no edema noted Leg (R), no edema noted Pedal (L), no edema noted Pedal (R), no edema noted Generalized Neurologic: motor weakness Skin: normal pigmentation, warm/dry Chase Long DO November 21, 2017 15:35
[2017-11-21] MEDS ORDERED: PROMETHAZINE-C118 M1 ORAL (15:51)
[2017-11-21 16:00] VITALS: BP 127/57
--- NOTE | 2017-11-22 16:13 | Discharge Summary ---
Discharge Summary Discharge Summary Discharge Summary DATE OF ADMISSION: 11/13/2017 DATE OF DISCHARGE: 11/21/2017 CONSULTANTS: Dr. Miya Mahajan BRIEF HOSPITAL COURSE: Patient is an 87-year-old female, from [facility], presented with shortness of breath, sepsis, weakness and lethargy. Patient was having dyspnea and respiratory distress. [facility] had cough at the [facility]. She was just at an outside hospital for a similar reason. She had medical history significant for heart disease, hypercholesterolemia, osteoarthritis, and dementia. On evaluation at ED, blood work was elevated to 15. Potassium was 3.4. She was given nebulizer treatments and was given IV fluid. She had an EKG done that showed sinus tachycardia with left bundle branch block. Chest x-ray showed elevated right hemidiaphragm with possible consolidation of right middle lobe. She had confusion with disorganized thought process, cognition has declined below baseline. She was diagnosed with major depression with psychotic features , with psychosocial stressors. She was treated with psychotropic medication consisting of Namenda and Aricept. She was given supportive psychotherapy. Patient has risk for Aspiration. She underwent video swallow evaluation. Non- oral feeding was recommended due to high chronic aspiration risk. Patient was conserved. On 11/20/2017, she underwent EGD with PEG tube placement. Tube feedings were started. She was given Augmentin. Levaquin was not done due to prolonged QT interval. She received Zosyn and vancomycin initially. Sputum culture with normal princess and Lexus. Influenza screen was negative. She was then observed off antibiotic treatment. Blood culture did not isolate any growth, influenza A&B were negative. Sputum with Lexus and normal upper respiratory princess. [facility] was eventually [facility] back to [facility]. FINAL DIAGNOSES: Shortness of breath Aspiration pneumonia Dementia Urinary tract infection Coronary artery disease Dysphagia status post PEG tube placement by Dr. Ivan Mahajan COPD exacerbation Hyperlipidemia Osteoarthritis Major depressive disorder with psychotic features Severe protein calorie malnutrition Dehydration DISPOSITION: Patient was discharged to [facility]. DISCHARGE MEDICATIONS: Refer to Discharge Medication List. Continue Keflex 500 mg every 6 hours for 10 days. I have been assigned to dictate discharge summary on this account, and I was not involved in the patient's management. Felisha Contreras NP November 22, 2017 16:13
== END 2017-11-21 18:25 | DRG 871 ==
LOC: EDBD 16:04 → EMR 16:41 → 2E 17:08 → EDBEDREQ 17:14 → 4W 11-15 18:48
PROC: 0DH63UZ Insertion of Feeding Device into Stomach, Percutaneous Approach (ICD-10-PCS; principal; 2017-11-20 12:08)
PROC: 0DJ08ZZ Inspection of Upper Intestinal Tract, Via Natural or Artificial Opening Endoscopic (ICD-10-PCS; principal; 2017-11-20 12:08)
DX: A41.9 Sepsis, unspecified organism (principal); J69.0 Pneumonitis due to inhalation of food and vomit; E43 Unspecified severe protein-calorie malnutrition; N39.0 Urinary tract infection, site not specified; J44.1 Chronic obstructive pulmonary disease with (acute) exacerbation; F32.3 Major depressive disorder, single episode, severe with psychotic features; Z68.1 Body mass index [BMI] 19.9 or less, adult; E11.9 Type 2 diabetes mellitus without complications; K29.70 Gastritis, unspecified, without bleeding; R13.10 Dysphagia, unspecified; R62.7 Adult failure to thrive; E78.5 Hyperlipidemia, unspecified; F03.90 Unspecified dementia, unspecified severity, without behavioral disturbance, psychotic disturbance, mood disturbance, and anxiety; I25.10 Atherosclerotic heart disease of native coronary artery without angina pectoris; Z95.1 Presence of aortocoronary bypass graft; E86.0 Dehydration
CPT/HCPCS: 36415; 36600; 71045; 74018; 74230; 80048; 80053; 81003; 82803; 82962; 83605; 83880; 84484; 85007; 85025; 85610; 85730; 86710; 87040; 87070; 87081; 87205; 93005; 94003; 94150; 94640; 94664; 94760; 97803; 99285